=== PATIENT | male | born 1950 | race Caucasian/White ===

== ENCOUNTER 2018-09-29 09:41 | Inpatient (IN) | payer MEDICARE, OTHER ==
[2018-10-13] MEDS ORDERED: Sodium Chloride 0.9% 10 ML Syringe FLUSH PRN (00:01)
[2018-10-13] MEDS ORDERED: Lidocaine 1%/Sod Bicarbonate in NS 8.4% 1 ML Syringe IDERM PRN (00:01)
[2018-10-13] MEDS ORDERED: Pregabalin 25 MG Cap PO SCH (07:00)
[2018-10-13] MEDS ORDERED: oxyCODONE ER 10 MG TAB.ER PO SCH (07:00)
[2018-10-13] MEDS ORDERED: Acetaminophen 325 MG Tab PO SCH (07:00)
[2018-10-13] MEDS ORDERED: Morphine 8 MG, EPINEPHrine 0.3 MG, Cefuroxime 750 MG, Ketorolac 30 MG, Sodium Chloride ... ONE ×5 (07:04)
[2018-10-13] MEDS ORDERED: Sennosides 8.6 MG Tab PO PRN (07:05)
[2018-10-13] MEDS ORDERED: Ondansetron 4 MG/2 ML SDV IVPUSH PRN (07:05)
[2018-10-13] MEDS ORDERED: Magnesium Hydroxide 400 MG/5 ML Susp 30 ML Cup PO PRN (07:05)
[2018-10-13] MEDS ORDERED: Naloxone 0.4 MG/ML SDV IVPUSH PRN (07:05)
[2018-10-13] MEDS ORDERED: Morphine 2 MG/ML Syringe IVPUSH PRN (07:05)
[2018-10-13] MEDS ORDERED: Bisacodyl 5 MG Tab PO PRN (07:05)
--- NOTE | 2018-10-13 08:31 | PCM.PREANE ---
Preanesthetic Assessment - Anesthesia/Transfusion/Family Hx Anesthesia History: Prior Anesthesia Without Reaction Family History of Anesthesia Reaction: No Transfusion History: No Prior Transfusion(s) - Review of Systems General: No Symptoms Pulmonary: No Symptoms Cardiovascular: No Symptoms Gastrointestinal: No Symptoms Neurological: No Symptoms Other: Reports: Diabetes (check this am 147) - Physical Assessment NPO Status Date: 10/12/18 NPO Status Time: 00:00 Pulse: 79 O2 Sat by Pulse Oximetry: 97 Respiratory Rate: 16 Blood Pressure: 152/82 Temperature: 36.5 C Height: 1.78 m Weight: 104.8 kg ASA Class: 3 Mental Status: Alert & Oriented x3 Dentition: Reports: Dentures Thyro-Mental Finger Breadths: 3 Mouth Opening Finger Breadths: 3 ROM/Head Extension: Full Lungs: Clear to Auscultation, Normal Respiratory Effort Cardiovascular: Regular Rate, Regular Rhythm - Lab Values: Laboratory Last Values MRSA (PCR) Negative 09/15/18 07:49 - Imaging/EKG Impressions: EKG on chart SR - Allergies Allergies/Adverse Reactions: Allergies Allergy/AdvReac Type Severity Reaction Status Date / Time No Known Allergies Allergy Verified 10/10/18 12:40 - Anesthesia Plan Pre-Op Medication Ordered: None - Acknowledgements Anesthesia Type Planned: Spinal Pt an Appropriate Candidate for the Planned Anesthesia: Yes Alternatives and Risks of Anesthesia Discussed w Pt/Guardian: Yes Pt/Guardian Understands and Agrees with Anesthesia Plan: Yes PreAnesthesia Questionnaire HEENT 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: Impaired Vision, Other (See Below) Other HEENT History: has glasses, dentures Cardiovascular 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: High Cholesterol, Hypertension Respiratory 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: None Gastrointestinal 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: None, GERD Genitourinary 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: None 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 Musculoskeletal 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: Osteoarthritis Psychiatric 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: None Endocrine/Metabolic 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: Diabetes, Type II Hematologic 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: None Immunologic 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: None Oncologic (Cancer) 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: None Dermatologic 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: Other (See Below) Other Dermatologic History: cyst removed from lower lip - Past Surgical History Head Surgeries/Procedures: Reports: None Cardiovascular Surgical 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: None Respiratory Surgical 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: None GI Surgical 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: Appendectomy, Colonoscopy Female Surgical 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: None Male Surgical 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: None Endocrine Surgical 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: None Other Neurological Surgeries/Procedures: 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 Musculoskeletal Surgical 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: Other (See Below) Other Musculoskeletal Surgeries/Procedures:: left knee surgery Oncologic Surgical 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: None Dermatological Surgical 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: None - SUBSTANCE USE Smoking Status *Q: Former Smoker Tobacco Use Within Last Twelve Months: No Second Hand Smoke Exposure: No Days Per Week of Alcohol Use: 0 Number of Drinks Per Day: 0 Total Drinks Per Week: 0 Recreational Drug Use History: No - HOME MEDS Home Medications: Home Meds Aspirin 325 mg PO DAILY 10/10/18 [History] Dapagliflozin Propanediol [Farxiga] 10 mg PO DAILY 10/10/18 [History] Insulin Degludec [Tresiba] 15 units SQ BEDTIME 10/10/18 [History] Simvastatin [Zocor] 40 mg PO DAILY 10/10/18 [History] SitaGLIPtin [Januvia] 100 mg PO DAILY 10/10/18 [History] Valsartan/Hydrochlorothiazide [Valsartan-Hctz 80-12.5 mg Tab] 1 tab PO DAILY 06/18 [History] metFORMIN [Glucophage] 500 mg PO BID 10/10/18 [History] - CURRENT (IN HOUSE) MEDS Current Meds: Current Medications Acetaminophen (Tylenol) 975 mg PO ONETIME [facility] Stop: 10/13/18 14:00 Aspirin (Ecotrin) 325 mg PO BID [facility] Bisacodyl (Dulcolax) 5 mg PO DAILY PRN PRN Reason: Constipation Cyclobenzaprine HCl (Flexeril) 10 mg PO TID PRN PRN Reason: Spasms Docusate Sodium (Colace) 100 mg PO BID [facility] Famotidine (Pepcid) 20 mg PO Q12H [facility] Lactated Ringer's (Ringers, Lactated) 1,000 mls @ 125 mls/hr IV ASDIRECTED [facility] Stop: 10/13/18 23:00 Cefazolin Sodium/Dextrose 2 gm (/ Premix) 50 mls @ 100 mls/hr IV Q8H [facility] Stop: 10/13/18 23:44 Lidocaine/Sodium Bicarbonate (Buffered Lidocaine 1% In Ns 8.4%) 0.25 ml IDERM ONETIME PRN PRN Reason: Prior to IV Start Stop: 10/13/18 18:00 Magnesium Hydroxide (Milk Of Magnesia) 30 ml PO BID PRN PRN Reason: Constipation Morphine Sulfate (Morphine) 2 mg IVPUSH Q2H PRN PRN Reason: Breakthrough Pain Naloxone HCl (Narcan) 0.1 mg IVPUSH Q5M PRN PRN Reason: Oversedation Ondansetron HCl (Zofran) 4 mg IVPUSH Q6H PRN PRN Reason: Nausea/Vomiting Oxycodone HCl (Oxycontin) 10 mg PO ONETIME [facility] Stop: 10/13/18 14:00 Oxycodone/Acetaminophen (Percocet 325-5 Mg) 1 - 2 tab PO Q4H PRN PRN Reason: Pain Pregabalin (Lyrica) 50 mg PO ONETIME [facility] Stop: 10/13/18 14:00 Senna (Senna) 8.6 mg PO BID PRN PRN Reason: Constipation Sodium Chloride (Saline Flush) 10 ml FLUSH ASDIRECTED PRN PRN Reason: Keep Vein Open Discontinued Medications Morphine Sulfate 8 mg/Epinephrine HCl 0.3 mg/Cefuroxime Sodium 750 mg/Ketorolac Tromethamine 30 mg/Sodium Chloride 27.9 ml 0 mg .XX ONETIME ONE Stop: 10/13/18 07:05
[2018-10-13] MEDS: Lactated Ringers 1,000 ML IV SCH ×2 (08:45→12:18)
[2018-10-13] MEDS ORDERED: Propofol 200 MG/20 ML SDV ONE ×2 (08:46→10:50)
[2018-10-13] MEDS ORDERED: Ondansetron 4 MG/2 ML SDV ONE (08:46)
[2018-10-13] MEDS ORDERED: fentaNYL 100 MCG/2 ML SDV ONE (08:47)
[2018-10-13] MEDS ORDERED: ceFAZolin 1 GM Vial ONE (08:50)
[2018-10-13] MEDS ORDERED: diphenhydrAMINE 50 MG/ML SDV ONE (09:53)
[2018-10-13] MEDS ORDERED: Lactated Ringers 1,000 ML ONE (10:18)
[2018-10-13] MEDS: Iodine/Sodium Iodide 2% Tincture 30 ML Bottle ONE ×2 (10:58→11:06)
[2018-10-13] MEDS: ceFAZolin 1 GM Vial ONE ×2 (11:04→11:06)
[2018-10-13] MEDS: Bupivacaine 0.25% 30 ML SDV ONE ×2 (11:05→11:08)
[2018-10-13] MEDS: Vancomycin 1 GM SDV ONE ×2 (11:07→11:09)
[2018-10-13] MEDS ORDERED: fentaNYL 100 MCG/2 ML SDV IVPUSH PRN (11:51)
--- NOTE | 2018-10-13 11:52 | PCM.POSTAN ---
POST ANESTHESIA ASSESSMENT - MENTAL STATUS Mental Status: Alert, Oriented - VITAL SIGNS Pulse Rate: 82 SaO2: 94 Resp Rate: 12 Blood Pressure: 106/57 Temperature: 36.2 C - RESPIRATORY Respiratory Status: Respiratory Rate WNL, Airway Patent, O2 Saturation Stable - CARDIOVASCULAR CV Status: Pulse Rate WNL, Blood Pressure Stable - GASTROINTESTINAL GI Status: No Symptoms - PAIN Pain Score: 0 - POST OP HYDRATION Hydration Status: Adequate & Stable - OBSERVATIONS Free Text/Narrative:: no anesthesia complications noted
--- NOTE | 2018-10-13 12:25 | CR ---
Left knee: AP and lateral views of the left knee were obtained. Comparison: No previous study. Knee prosthesis is seen. Components are aligned. Soft tissue air is noted from surgical procedure. Multiple calcifications are seen posterior to the knee which are felt to be incidental. No fracture or other abnormality is seen. Impression: 1. Satisfactory appearance of recently placed left knee prosthesis. 2. Soft tissue calcifications seen posteriorly which are felt to be incidental. Diagnostic code #2
[2018-10-13] MEDS ORDERED: EPINEPHrine 1 MG/ML SDV ONE (12:26)
[2018-10-13] MEDS ORDERED: Ropivacaine 0.5% 5 MG/ML 30 ML SDV ONE (12:27)
--- NOTE | 2018-10-13 12:54 | PCM.SN ---
- Free Text/Narrative Note: Left selective femoral nerve block at the adductor canal for post-procedure pain control under US guidance requested by Dr. Dior. Time Out: 1234 Start: 1234 End: 1144 Chart reviewed. Consent signed. Questions answered. Appropriate monitors applied. Time out performed. Left mid-shaft femur identified with ultrasound, scanning medially of femur, the femoral artery in the adductor canal visualized , and the femoral nerve located laterally to the artery. The skin was prepped lateral to the ultrasound probe with chlorahexadine times two. The 21ga 4 insulated block needle was inserted under direct ultrasound guidance into the adductor canal. 20mL of 0.5% ropivacaine with 1:200,000 epinephrine was injected circumferentially around the nerve with intermittent negative aspiration noted. Patient tolerated the procedure well. Sterile technique noted along with sterile gloves, mask, and sterile probe cover. See picture on progress note and vital signs on nurses notes. Block completed in PACU. Juan Diego Rome CRNA
[2018-10-13] MEDS: Acetaminophen/oxyCODONE 325-5 MG Tab PO PRN ×2 (15:54→21:35)
[2018-10-13] MEDS: ceFAZolin 2 GM in Premix Bag 1 BAG IV SCH (17:00)
[2018-10-13] MEDS: Insulin Lispro 100 Units/ML 3 ML Vial SUBCUT SCH ×2 (17:32→21:40)
[2018-10-13] MEDS: Cyclobenzaprine 10 MG Tab PO PRN (19:04)
--- NOTE | 2018-10-13 20:15 | PCM.CONS ---
H&P History of Present Illness - General Date of Service: 10/13/18 Admit Problem/Dx: Admission Diagnosis/Problem Admission Diagnosis/Problem Osteoarthritis of knee Source of Information: Patient - History of Present Illness Initial Comments - Free Text/Narative: Hospital service was consult at for medical management and diabetic management of this 68-year-old male who underwent a left total knee arthroplasty. Per notes patient had uneventful surgery and is now on the floor without any discomfort. Patient denies any chest pain, shortness breath, orthopnea, wheezing , or cough. Patient does have a history for diabetes hyperlipidemia and hypertension. He is on Tresiba, metformin, Januvia, and Farxiga for diabetic medications. Left Knee Pain Score (Numeric/FACES): 2 - Related Data Allergies/Adverse Reactions: Allergies Allergy/AdvReac Type Severity Reaction Status Date / Time No Known Allergies Allergy Verified 10/13/18 13:44 Home Medications: Home Meds Dapagliflozin Propanediol [Farxiga] 10 mg PO DAILY 10/10/18 [History] Insulin Degludec [Tresiba] 15 units SQ BEDTIME 10/10/18 [History] Simvastatin [Zocor] 40 mg PO DAILY 10/10/18 [History] SitaGLIPtin [Januvia] 100 mg PO DAILY 10/10/18 [History] Valsartan/Hydrochlorothiazide [Valsartan-Hctz 80-12.5 mg Tab] 1 tab PO DAILY 06/18 [History] metFORMIN [Glucophage] 1,000 mg PO BID 10/10/18 [History] Acetaminophen/oxyCODONE [Percocet 325-5 MG] 1 - 2 tab PO Q4H PRN #60 tablet [Rx] Aspirin [Ecotrin] 325 mg PO BID #84 tab.ec 10/13/18 [Rx] Bisacodyl [Dulcolax] 5 mg PO DAILY PRN tablet 10/13/18 [Rx] Cyclobenzaprine [Flexeril] 10 mg PO TID PRN #40 tablet 10/13/18 [Rx] Docusate Sodium [Colace] 100 mg PO BID cap 10/13/18 [Rx] Famotidine [Pepcid] 20 mg PO Q12H tablet 10/13/18 [Rx] Magnesium Hydroxide [Milk of Magnesia] 30 ml PO BID PRN cup 10/13/18 [Rx] Sennosides [Senna] 8.6 mg PO BID PRN tablet 10/13/18 [Rx] Past Medical History HEENT 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: Impaired Vision, Other (See Below) Other HEENT History: has glasses, dentures Cardiovascular 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: High Cholesterol, Hypertension Respiratory 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: None Gastrointestinal 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: None, GERD Genitourinary 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: None 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 Musculoskeletal 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: Osteoarthritis Psychiatric 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: None Endocrine/Metabolic 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: Diabetes, Type II Hematologic 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: None Immunologic 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: None Oncologic (Cancer) 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: None Dermatologic 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: Other (See Below) Other Dermatologic History: cyst removed from lower lip - Past Surgical History Head Surgeries/Procedures: Reports: None Cardiovascular Surgical 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: None Respiratory Surgical 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: None GI Surgical 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: Appendectomy, Colonoscopy Male Surgical 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: None Endocrine Surgical 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: None Other Neurological Surgeries/Procedures: 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 Musculoskeletal Surgical 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: Other (See Below) Other Musculoskeletal Surgeries/Procedures:: left knee surgery Oncologic Surgical 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: None Dermatological Surgical 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: None Social & Family History - Tobacco Use Smoking Status *Q: Former Smoker Used Tobacco, but Quit: Yes Month/Year Tobacco Last Used: 1890 Second Hand Smoke Exposure: No - Caffeine Use Caffeine Use: Reports: Coffee - Alcohol Use Days Per Week of Alcohol Use: 0 Number of Drinks Per Day: 0 Total Drinks Per Week: 0 - Recreational Drug Use Recreational Drug Use: No Drug Use in Last 12 Months: No H&P Review of Systems - Review of Systems: Review Of Systems: ROS reveals no pertinent complaints other than HPI. Exam - Exam Exam: See Below - Vital Signs Vital Signs: Last Vital Signs Temp 99.1 F 10/13/18 19:39 Pulse 86 10/13/18 19:39 Resp 16 10/13/18 19:39 BP 124/66 10/13/18 19:39 Pulse Ox 98 10/13/18 19:39 Weight: 231 lb - Exam Quality Assessment: No: Supplemental Oxygen General: Alert, Oriented HEENT: Conjunctiva Clear, Mucosa Moist & [place], Posterior Pharynx Clear Neck: Supple, Trachea Midline Lungs: Clear to Auscultation, Normal Respiratory Effort Cardiovascular: Regular Rate, Regular Rhythm GI/Abdominal Exam: Normal Bowel Sounds, Soft, Non-Tender, No Organomegaly, No Distention Back Exam: Normal Inspection Extremities: Normal Inspection, Normal Range of Motion, No Pedal Edema, Normal Capillary Refill Skin: Warm, Dry, Intact Neuro Extensive - Mental Status: Alert, Oriented x3 Neuro Extensive - Motor, Sensory, Reflexes: CN II-XII Intact Consult PN Assessment/Plan Problem List Initiated/Reviewed/Updated: Yes My Orders Last 24 Hours: My Active Orders 10/13/18 16:48 POC Glucose [Blood Glucose Check, Bedside] [RC] QIDACANDBED 10/13/18 17:00 Insulin Lispro [HumaLOG] See Protocol SUBCUT QIDACANDBED Plan: S/P Left TKA * Uneventful surgical course * Pain management and VTE prophylaxis per primary care team/surgery Diabetes mellitus * Restart home medications * Fingerstick blood sugars 4 times a day * Sliding-scale insulin - low dose Hypertension * Continue home meds Hospital service will follow in the morning. Plan discharge for tomorrow per orthopedic surgery Thank you for allowing us to participate in his care.
[2018-10-13] MEDS ORDERED: Insulin Glarg,Human.Rec.Analog 100 UNIT/ML ML SUBCUT SCH (21:00)
[2018-10-13] MEDS ORDERED: metFORMIN 500 MG Tab PO SCH (21:00)
[2018-10-13] MEDS ORDERED: Simvastatin 40 MG Tab PO SCH (21:00)
[2018-10-13] MEDS: Docusate Sodium 100 MG Cap PO SCH (21:33)
[2018-10-13] MEDS: Famotidine 20 MG Tab PO SCH (21:35)
[2018-10-14] MEDS: ceFAZolin 2 GM in Premix Bag 1 BAG IV SCH ×2 (00:37→09:40)
--- NOTE | 2018-10-14 06:52 | PCM.CONSN ---
- General Info Date of Service: 10/14/18 Admission Dx/Problem (Free Text): Admission Diagnosis/Problem Admission Diagnosis/Problem Osteoarthritis of knee Functional Status: Reports: Pain Controlled, Tolerating Diet, Ambulating, Urinating, Incentive Spirometry. Denies: New Symptoms - Review of Systems General: Reports: No Symptoms. Denies: Fever, Chills HEENT: Reports: No Symptoms. Denies: Headaches, Sore Throat Pulmonary: Reports: No Symptoms. Denies: Shortness of Breath, Pleuritic Chest Pain, Cough, Sputum, Wheezing Cardiovascular: Reports: No Symptoms. Denies: Chest Pain, Palpitations, Dyspnea on Exertion, Edema Gastrointestinal: Reports: No Symptoms. Denies: Abdominal Pain, Constipation, Diarrhea, Nausea, Vomiting Genitourinary: Reports: No Symptoms. Denies: Pain Musculoskeletal: Reports: No Symptoms, Leg Pain Skin: Reports: No Symptoms. Denies: Cyanosis Neurological: Reports: No Symptoms. Denies: Confusion Psychiatric: Reports: No Symptoms - Patient Data Vitals - Most Recent: Last Vital Signs Temp 99.7 F 10/14/18 03:55 Pulse 95 10/14/18 03:37 Resp 16 10/14/18 03:37 BP 101/50 L 10/14/18 03:37 Pulse Ox 96 10/14/18 03:37 Weight - Most Recent: 242 lb 9.6 oz I&O - Last 24 Hours: Intake & Output 10/13/18 10/13/18 10/14/18 14:59 22:59 06:59 Intake Total 600 1160 650 Output Total 400 Balance 600 1160 250 Lab Results Last 24 Hours: Laboratory Results - last 24 hr 10/13/18 10/13/18 10/14/18 Range/Units 17:01 21:29 06:40 POC Glucose 185 H 153 H 148 H (80-115) mg/dL Med Orders - Current: Current Medications Alogliptin Benzoate (Alogliptin) 25 mg PO DAILY [facility] Aspirin (Ecotrin) 325 mg PO BID [facility] Bisacodyl (Dulcolax) 5 mg PO DAILY PRN PRN Reason: Constipation Cyclobenzaprine HCl (Flexeril) 10 mg PO TID PRN PRN Reason: Spasms Last Admin: 10/13/18 19:04 Dose: 10 mg Docusate Sodium (Colace) 100 mg PO BID [facility] Last Admin: 10/13/18 21:33 Dose: 100 mg Famotidine (Pepcid) 20 mg PO Q12H [facility] Last Admin: 10/13/18 21:35 Dose: 20 mg Hydrochlorothiazide (Hydrochlorothiazide) 12.5 mg PO DAILY [facility] Cefazolin Sodium/Dextrose 2 gm (/ Premix) 50 mls @ 100 mls/hr IV Q8H [facility] Stop: 10/14/18 09:29 Last Admin: 10/14/18 00:37 Dose: 100 mls/hr Insulin Glargine (Lantus) 15 unit SUBCUT BEDTIME [facility] Last Admin: 10/13/18 21:33 Dose: 15 units Insulin Human Lispro (Humalog) 0 unit SUBCUT QIDACANDBED [facility]; Protocol Last Admin: 10/13/18 21:40 Dose: Not Given Losartan Potassium (Cozaar) 50 mg PO DAILY [facility] Magnesium Hydroxide (Milk Of Magnesia) 30 ml PO BID PRN PRN Reason: Constipation Metformin HCl (Glucophage) 500 mg PO BID [facility] Last Admin: 10/13/18 21:33 Dose: 500 mg Morphine Sulfate (Morphine) 2 mg IVPUSH Q2H PRN PRN Reason: Breakthrough Pain Naloxone HCl (Narcan) 0.1 mg IVPUSH Q5M PRN PRN Reason: Oversedation Ondansetron HCl (Zofran) 4 mg IVPUSH Q6H PRN PRN Reason: Nausea/Vomiting Oxycodone/Acetaminophen (Percocet 325-5 Mg) 1 - 2 tab PO Q4H PRN PRN Reason: Pain Last Admin: 10/13/18 21:35 Dose: 2 tab Dapagliflozin Propanediol [Farxiga ] 10 Mg 0 each PO DAILY [facility] Senna (Senna) 8.6 mg PO BID PRN PRN Reason: Constipation Simvastatin (Zocor) 40 mg PO BEDTIME [facility] Last Admin: 10/13/18 21:35 Dose: 40 mg Sodium Chloride (Saline Flush) 10 ml FLUSH ASDIRECTED PRN PRN Reason: Keep Vein Open Discontinued Medications Acetaminophen (Tylenol) 975 mg PO ONETIME [facility] Stop: 10/13/18 14:00 Last Admin: 10/13/18 08:29 Dose: 975 mg Bupivacaine HCl (Marcaine 0.25%) Confirm Administered Dose 30 ml .ROUTE .STK- MED ONE Stop: 10/13/18 08:48 Last Admin: 10/13/18 11:08 Dose: 30 ml Cefazolin Sodium (Ancef) Confirm Administered Dose 2 gm .ROUTE .STK-MED ONE Stop: 10/13/18 08:48 Last Admin: 10/13/18 11:04 Dose: 2 gm Cefazolin Sodium (Ancef) Confirm Administered Dose 2 gm .ROUTE .STK-MED ONE Stop: 10/13/18 08:51 Morphine Sulfate 8 mg/Epinephrine HCl 0.3 mg/Cefuroxime Sodium 750 mg/Ketorolac Tromethamine 30 mg/Sodium Chloride 27.9 ml 0 mg .XX ONETIME ONE Stop: 10/13/18 07:05 Last Admin: 10/13/18 11:07 Dose: 788.3 mg Diphenhydramine HCl (Benadryl) Confirm Administered Dose 50 mg .ROUTE .STK-MED ONE Stop: 10/13/18 09:54 Epinephrine HCl (Adrenalin) Confirm Administered Dose 1 mg .ROUTE .STK-MED ONE Stop: 10/13/18 12:27 Fentanyl (Sublimaze) Confirm Administered Dose 100 mcg .ROUTE .STK-MED ONE Stop: 10/13/18 08:48 Fentanyl (Sublimaze) 50 mcg IVPUSH Q5M PRN PRN Reason: Pain Stop: 10/13/18 18:00 Lactated Ringer's (Ringers, Lactated) 1,000 mls @ 125 mls/hr IV ASDIRECTED [facility] Stop: 10/13/18 23:00 Last Admin: 10/13/18 12:18 Dose: 125 mls/hr Lactated Ringer's (Ringers, Lactated) Confirm Administered Dose 1,000 mls @ as directed .ROUTE .STK-MED ONE Stop: 10/13/18 10:19 Iodine (Iodine 2% Mild Tincture) Confirm Administered Dose 30 ml .ROUTE .STK- MED ONE Stop: 10/13/18 08:48 Last Admin: 10/13/18 10:58 Dose: 18 ml Lidocaine/Sodium Bicarbonate (Buffered Lidocaine 1% In Ns 8.4%) 0.25 ml IDERM ONETIME PRN PRN Reason: Prior to IV Start Stop: 10/13/18 18:00 Last Admin: 10/13/18 08:45 Dose: 0.25 ml Ondansetron HCl (Zofran) Confirm Administered Dose 4 mg .ROUTE .STK-MED ONE Stop: 10/13/18 08:47 Oxycodone HCl (Oxycontin) 10 mg PO ONETIME [facility] Stop: 10/13/18 14:00 Last Admin: 10/13/18 08:29 Dose: 10 mg Pregabalin (Lyrica) 50 mg PO ONETIME [facility] Stop: 10/13/18 14:00 Last Admin: 10/13/18 08:28 Dose: 50 mg Propofol (Diprivan 20 Ml) Confirm Administered Dose 200 mg .ROUTE .STK-MED ONE Stop: 10/13/18 08:47 Propofol (Diprivan 20 Ml) Confirm Administered Dose 200 mg .ROUTE .STK-MED ONE Stop: 10/13/18 10:51 Ropivacaine (Naropin 0.5%) Confirm Administered Dose 30 ml .ROUTE .STK-MED ONE Stop: 10/13/18 12:28 Tranexamic Acid (Cyklokapron) Confirm Administered Dose 1,000 mg .ROUTE .STK- MED ONE Stop: 10/13/18 08:48 Last Admin: 10/13/18 11:11 Dose: 1,000 mg Vancomycin HCl (Vancomycin) Confirm Administered Dose 1 gm .ROUTE .STK-MED ONE Stop: 10/13/18 08:48 Last Admin: 10/13/18 11:09 Dose: 1 gm - Exam Quality Assessment: DVT Prophylaxis General: Alert, Oriented, Cooperative, No Acute Distress HEENT: Pupils Equal, Pupils Reactive, EOMI, Mucous Membr. Moist/[place] Neck: Supple, Trachea Midline, No JVD Lungs: Clear to Auscultation, Normal Respiratory Effort Cardiovascular: Regular Rate, Regular Rhythm GI/Abdominal Exam: Normal Bowel Sounds, Soft, Non-Tender, No Organomegaly, No Distention (Male) Exam: Deferred Back Exam: Normal Inspection, Full Range of Motion Extremities: No Pedal Edema, Normal Capillary Refill, Leg Pain, Limited Range of Motion, Other (Bandage in place on left leg. Cooling pack in place ) Peripheral Pulses: 2+: Radial (L), Radial (R), Dorsalis Pedis (L), Dorsalis Pedis (R) Skin: Warm, Dry, Intact Wound/Incisions: Dressing Dry and Intact, No Drainage Neurological: No New Focal Deficit Psy/Mental Status: Alert, Normal Affect, Normal Mood Consult PN Assessment/Plan POD#: 1 (1) S/P total knee arthroplasty SNOMED Code(s): 9511344562301, 526258028, 0987483618019 Code(s): Z96.659 - PRESENCE OF UNSPECIFIED ARTIFICIAL KNEE JOINT Priority: High Current Visit: Yes Qualifiers: Laterality: left Qualified Code(s): Z96.652 - Presence of left artificial knee joint (2) Osteoarthritis SNOMED Code(s): 217082171 Code(s): M19.90 - UNSPECIFIED OSTEOARTHRITIS, UNSPECIFIED SITE Priority: High Current Visit: Yes Qualifiers: Osteoarthritis location: knee Osteoarthritis type: primary Laterality: left Qualified Code(s): M17.12 - Unilateral primary osteoarthritis, left knee (3) Diabetes mellitus, type II SNOMED Code(s): 90609689 Code(s): E11.9 - TYPE 2 DIABETES MELLITUS WITHOUT COMPLICATIONS Priority: Medium Current Visit: No Qualifiers: Diabetes mellitus exterminator insulin use: unspecified residential insulin use status Diabetes mellitus complication status: with unspecified complications Qualified Code(s): E11.8 - Type 2 diabetes mellitus with unspecified complications (4) HLD (hyperlipidemia) SNOMED Code(s): 70053781 Code(s): E78.5 - HYPERLIPIDEMIA, UNSPECIFIED Priority: Low Current Visit : No Qualifiers: Hyperlipidemia type: unspecified Qualified Code(s): E78.5 - Hyperlipidemia , unspecified (5) HTN (hypertension) SNOMED Code(s): 36672855 Code(s): I10 - ESSENTIAL (PRIMARY) HYPERTENSION Priority: Medium Current Visit: No Qualifiers: Hypertension type: unspecified Qualified Code(s): I10 - Essential (primary ) hypertension Problem List Initiated/Reviewed/Updated: Yes Plan: I/P: Acute: S/P left total knee arthroplasty - post-operative day 1 -DVT prophylaxis and pain management per primary care team -PT/OT -IS/RT -Monitor oxygen saturation -Titrate oxygen as needed -Home medications reviewed -Vital signs stable -Monitor labs -Pre-operative Hgb was 14.8; Now 11.6 -Pre-operative GFR was 63; Now 46 -Pre-operative Creatinine 1.1; Now 1.5 -Pre-operative A1C 7.4% Osteoarthritis of left knee -Pain management per primary care team Acute renal injury -Creatinine and eGFR as above -Encourage hydration -500mL fluid bolus -IV fluids as ordered -Hold metformin and HCTZ today Chronic: Type II DM HLD HTN Plan: CM for discharge planning GI prophylaxis Home medications as indicated Other orders as listed above Routine AM labs He is a full code. His PCP is Luiza Hopkins NP From a hospitalist standpoint Armando is doing pretty well. His creatinine was elevated today and he was given a fluid bolus and IV fluids until discharge. He should follow-up with his PCP within 2-3 days for re-check of labs. Recommend repeat BMP at that time. Otherwise he is doing well. He has been up ambulating and working with therapies. Labs and vital signs have otherwise been stable. He has urinated and is off of oxygen. He is cleared for discharge this afternoon after receiving IV fluids pending PT/OT and primary team agreement. Thank you for allowing us to participate in the care of this patient!!
[2018-10-14] MEDS ORDERED: Sodium Chloride 0.9% 500 ML IV ONE (07:35)
[2018-10-14] MEDS ORDERED: Sodium Chloride 0.9% 1,000 ML IV SCH (07:45)
[2018-10-14] MEDS: Insulin Lispro 100 Units/ML 3 ML Vial SUBCUT SCH ×2 (07:51→13:18)
--- NOTE | 2018-10-14 07:57 | PCM.SURGPN ---
- General Info Date of Service: 10/14/18 POD#: 1 Functional Status: Reports: Pain Controlled, Tolerating Diet, Ambulating, Urinating, Incentive Spirometry, Other (The pt states he is doing well.) - Patient Data Vitals - Most Recent: Last Vital Signs Temp 99.7 F 10/14/18 03:55 Pulse 95 10/14/18 03:37 Resp 16 10/14/18 03:37 BP 101/50 L 10/14/18 03:37 Pulse Ox 96 10/14/18 03:37 Weight - Most Recent: 242 lb 9.6 oz I&O - Last 24 Hours: Intake & Output 10/13/18 10/14/18 10/14/18 22:59 06:59 14:59 Intake Total 1160 650 Output Total 400 Balance 1160 250 Lab Results Last 24 Hrs: Laboratory Results - last 24 hr 10/13/18 10/13/18 10/14/18 Range/Units 17:01 21:29 06:40 WBC 8.14 (4.23-9.07) K/mm3 RBC 3.89 L (4.63-6.08) M/mm3 Hgb 11.6 L (13.7-17.5) gm/L Hct 35.8 L (40.1-51.0) % MCV 92.0 (79.0-92.2) fl MCH 29.8 (25.7-32.2) pg MCHC 32.4 (32.2-35.5) g/dl RDW Std Deviation 42.9 (35.1-43.9) fL Plt Count 212 (163-337) K/mm3 MPV 10.1 (9.4-12.3) fl Sodium (136-145) mEq/L Potassium (3.5-5.1) mEq/L Chloride (98-107) mEq/L Carbon Dioxide (21-32) mEq/L Anion Gap (5-15) BUN (7-18) mg/dL Creatinine (0.7-1.3) mg/dL Est Cr Clr Drug Dosing mL/min Estimated GFR (MDRD) (>60) mL/min BUN/Creatinine Ratio (14-18) Glucose (80-115) mg/dL POC Glucose 185 H 153 H (80-115) mg/dL Calcium (8.5-10.1) mg/dL Total Bilirubin (0.2-1.0) mg/dL AST (15-37) U/L ALT (16-63) U/L Alkaline Phosphatase (46-116) U/L Total Protein (6.4-8.2) g/dl Albumin (3.4-5.0) g/dl Globulin gm/dL Albumin/Globulin Ratio (1-2) 10/14/18 10/14/18 Range/Units 06:40 06:40 WBC (4.23-9.07) K/mm3 RBC (4.63-6.08) M/mm3 Hgb (13.7-17.5) gm/L Hct (40.1-51.0) % MCV (79.0-92.2) fl MCH (25.7-32.2) pg MCHC (32.2-35.5) g/dl RDW Std Deviation (35.1-43.9) fL Plt Count (163-337) K/mm3 MPV (9.4-12.3) fl Sodium 138 (136-145) mEq/L Potassium 3.8 (3.5-5.1) mEq/L Chloride 104 (98-107) mEq/L Carbon Dioxide 27 (21-32) mEq/L Anion Gap 10.8 (5-15) BUN 30 H (7-18) mg/dL Creatinine 1.5 H (0.7-1.3) mg/dL Est Cr Clr Drug Dosing 47.99 mL/min Estimated GFR (MDRD) 46 (>60) mL/min BUN/Creatinine Ratio 20.0 H (14-18) Glucose 150 H (80-115) mg/dL POC Glucose 148 H (80-115) mg/dL Calcium 8.3 L (8.5-10.1) mg/dL Total Bilirubin 1.3 H (0.2-1.0) mg/dL AST 15 (15-37) U/L ALT 24 (16-63) U/L Alkaline Phosphatase 44 L (46-116) U/L Total Protein 6.4 (6.4-8.2) g/dl Albumin 3.1 L (3.4-5.0) g/dl Globulin 3.3 gm/dL Albumin/Globulin Ratio 0.9 L (1-2) Med Orders - Current: Current Medications Alogliptin Benzoate (Alogliptin) 25 mg PO DAILY [facility] Aspirin (Ecotrin) 325 mg PO BID [facility] Bisacodyl (Dulcolax) 5 mg PO DAILY PRN PRN Reason: Constipation Cyclobenzaprine HCl (Flexeril) 10 mg PO TID PRN PRN Reason: Spasms Last Admin: 10/13/18 19:04 Dose: 10 mg Docusate Sodium (Colace) 100 mg PO BID [facility] Last Admin: 10/13/18 21:33 Dose: 100 mg Famotidine (Pepcid) 20 mg PO Q12H [facility] Last Admin: 10/13/18 21:35 Dose: 20 mg Cefazolin Sodium/Dextrose 2 gm (/ Premix) 50 mls @ 100 mls/hr IV Q8H [facility] Stop: 10/14/18 09:29 Last Admin: 10/14/18 00:37 Dose: 100 mls/hr Sodium Chloride (Normal Saline) 500 mls @ 999 mls/hr IV .BOLUS ONE Stop: 10/14/18 08:05 Sodium Chloride (Normal Saline) 1,000 mls @ 125 mls/hr IV ASDIRECTED [facility] Insulin Glargine (Lantus) 15 unit SUBCUT BEDTIME [facility] Last Admin: 10/13/18 21:33 Dose: 15 units Insulin Human Lispro (Humalog) 0 unit SUBCUT QIDACANDBED [facility]; Protocol Last Admin: 10/14/18 07:51 Dose: Not Given Losartan Potassium (Cozaar) 50 mg PO DAILY [facility] Magnesium Hydroxide (Milk Of Magnesia) 30 ml PO BID PRN PRN Reason: Constipation Morphine Sulfate (Morphine) 2 mg IVPUSH Q2H PRN PRN Reason: Breakthrough Pain Naloxone HCl (Narcan) 0.1 mg IVPUSH Q5M PRN PRN Reason: Oversedation Ondansetron HCl (Zofran) 4 mg IVPUSH Q6H PRN PRN Reason: Nausea/Vomiting Oxycodone/Acetaminophen (Percocet 325-5 Mg) 1 - 2 tab PO Q4H PRN PRN Reason: Pain Last Admin: 10/13/18 21:35 Dose: 2 tab Dapagliflozin Propanediol [Farxiga ] 10 Mg 0 each PO DAILY [facility] Senna (Senna) 8.6 mg PO BID PRN PRN Reason: Constipation Simvastatin (Zocor) 40 mg PO BEDTIME [facility] Last Admin: 10/13/18 21:35 Dose: 40 mg Sodium Chloride (Saline Flush) 10 ml FLUSH ASDIRECTED PRN PRN Reason: Keep Vein Open Discontinued Medications Acetaminophen (Tylenol) 975 mg PO ONETIME [facility] Stop: 10/13/18 14:00 Last Admin: 10/13/18 08:29 Dose: 975 mg Bupivacaine HCl (Marcaine 0.25%) Confirm Administered Dose 30 ml .ROUTE .STK- MED ONE Stop: 10/13/18 08:48 Last Admin: 10/13/18 11:08 Dose: 30 ml Cefazolin Sodium (Ancef) Confirm Administered Dose 2 gm .ROUTE .STK-MED ONE Stop: 10/13/18 08:48 Last Admin: 10/13/18 11:04 Dose: 2 gm Cefazolin Sodium (Ancef) Confirm Administered Dose 2 gm .ROUTE .STK-MED ONE Stop: 10/13/18 08:51 Morphine Sulfate 8 mg/Epinephrine HCl 0.3 mg/Cefuroxime Sodium 750 mg/Ketorolac Tromethamine 30 mg/Sodium Chloride 27.9 ml 0 mg .XX ONETIME ONE Stop: 10/13/18 07:05 Last Admin: 10/13/18 11:07 Dose: 788.3 mg Diphenhydramine HCl (Benadryl) Confirm Administered Dose 50 mg .ROUTE .STK-MED ONE Stop: 10/13/18 09:54 Epinephrine HCl (Adrenalin) Confirm Administered Dose 1 mg .ROUTE .STK-MED ONE Stop: 10/13/18 12:27 Fentanyl (Sublimaze) Confirm Administered Dose 100 mcg .ROUTE .STK-MED ONE Stop: 10/13/18 08:48 Fentanyl (Sublimaze) 50 mcg IVPUSH Q5M PRN PRN Reason: Pain Stop: 10/13/18 18:00 Hydrochlorothiazide (Hydrochlorothiazide) 12.5 mg PO DAILY [facility] Lactated Ringer's (Ringers, Lactated) 1,000 mls @ 125 mls/hr IV ASDIRECTED [facility] Stop: 10/13/18 23:00 Last Admin: 10/13/18 12:18 Dose: 125 mls/hr Lactated Ringer's (Ringers, Lactated) Confirm Administered Dose 1,000 mls @ as directed .ROUTE .STK-MED ONE Stop: 10/13/18 10:19 Iodine (Iodine 2% Mild Tincture) Confirm Administered Dose 30 ml .ROUTE .STK- MED ONE Stop: 10/13/18 08:48 Last Admin: 10/13/18 10:58 Dose: 18 ml Lidocaine/Sodium Bicarbonate (Buffered Lidocaine 1% In Ns 8.4%) 0.25 ml IDERM ONETIME PRN PRN Reason: Prior to IV Start Stop: 10/13/18 18:00 Last Admin: 10/13/18 08:45 Dose: 0.25 ml Metformin HCl (Glucophage) 500 mg PO BID [facility] Last Admin: 10/13/18 21:33 Dose: 500 mg Ondansetron HCl (Zofran) Confirm Administered Dose 4 mg .ROUTE .STK-MED ONE Stop: 10/13/18 08:47 Oxycodone HCl (Oxycontin) 10 mg PO ONETIME [facility] Stop: 10/13/18 14:00 Last Admin: 10/13/18 08:29 Dose: 10 mg Pregabalin (Lyrica) 50 mg PO ONETIME [facility] Stop: 10/13/18 14:00 Last Admin: 10/13/18 08:28 Dose: 50 mg Propofol (Diprivan 20 Ml) Confirm Administered Dose 200 mg .ROUTE .STK-MED ONE Stop: 10/13/18 08:47 Propofol (Diprivan 20 Ml) Confirm Administered Dose 200 mg .ROUTE .STK-MED ONE Stop: 10/13/18 10:51 Ropivacaine (Naropin 0.5%) Confirm Administered Dose 30 ml .ROUTE .STK-MED ONE Stop: 10/13/18 12:28 Tranexamic Acid (Cyklokapron) Confirm Administered Dose 1,000 mg .ROUTE .STK- MED ONE Stop: 10/13/18 08:48 Last Admin: 10/13/18 11:11 Dose: 1,000 mg Vancomycin HCl (Vancomycin) Confirm Administered Dose 1 gm .ROUTE .STK-MED ONE Stop: 10/13/18 08:48 Last Admin: 10/13/18 11:09 Dose: 1 gm - Exam Wound/Incisions: Dressing Dry and Intact General: Alert, Cooperative, No Acute Distress Lungs: Normal Respiratory Effort Extremities: Other (NVS intact for BLE. Hilary's negative. 90 degree left knee flexion in sitting.) - Problem List Review Problem List Initiated/Reviewed/Updated: Yes - My Orders Last 24 Hours: Active Orders 24 hr Category Date Time Status Patient Status [ADT] Routine ADT 10/13/18 07:05 Active Ambulate [RC] 09,13,15 Care 10/13/18 07:05 Active Antiembolic Devices [RC] BID Care 10/13/18 07:06 Active Communication Order [RC] ASDIRECTED Care 10/13/18 13:18 Active May Shower [RC] ASDIRECTED Care 10/13/18 07:05 Active Notify Provider Consults [RC] ASDIRECTED Care 10/13/18 07:09 Active Notify Provider [RC] ASDIRECTED Care 10/13/18 11:50 Active Oxygen Therapy [RC] ASDIRECTED Care 10/13/18 11:50 Inactive Oxygen Therapy [RC] PRN Care 10/13/18 07:05 Active POC Glucose [Blood Glucose Check, Bedside] [RC] Care 10/13/18 16:48 Active QIDACANDBED Pulse Oximetry [RC] ASDIRECTED Care 10/13/18 11:50 Inactive RT Incentive Spirometry [RC] Q1HWA Care 10/13/18 07:04 Active Ready for Discharge [RC] PER UNIT ROUTINE Care 10/14/18 07:54 Ordered Up to Chair [RC] 08,12 Care 10/13/18 07:05 Active Vital Signs [RC] Q15M Care 10/13/18 11:50 Inactive Vital Signs [RC] Q4HR Care 10/13/18 07:05 Active Consult to Physician [CONS] Routine Cons 10/13/18 07:05 Active OT Evaluation and Treatment [CONS] Routine Cons 10/13/18 07:04 Active PT Evaluation and Treatment [CONS] Routine Cons 10/13/18 07:04 Active [employer] Diet [DIET] Diet 10/13/18 Lunch Active Acetaminophen/oxyCODONE [Percocet 325-5 MG] Med 10/13/18 07:04 Active 1 - 2 tab PO Q4H PRN Alogliptin Benzoate [Alogliptin] Med 10/14/18 09:00 Active 25 mg PO DAILY Aspirin [Ecotrin] Med 10/14/18 09:00 Active 325 mg PO BID Bisacodyl [Dulcolax] Med 10/13/18 07:05 Active 5 mg PO DAILY PRN Cyclobenzaprine [Flexeril] Med 10/13/18 07:04 Active 10 mg PO TID PRN Docusate Sodium [Colace] Med 10/13/18 21:00 Active 100 mg PO BID Famotidine [Pepcid] Med 10/13/18 21:00 Active 20 mg PO Q12H Insulin Glarg,Human.Rec.Analog [LantUS] Med 10/13/18 21:00 Active 15 unit SUBCUT BEDTIME Insulin Lispro [HumaLOG] Med 10/13/18 17:00 Active See Protocol SUBCUT QIDACANDBED Losartan [Cozaar] Med 10/14/18 09:00 Active 50 mg PO DAILY Magnesium Hydroxide [Milk of Magnesia] Med 10/13/18 07:05 Active 30 ml PO BID PRN Morphine Med 10/13/18 07:05 Active 2 mg IVPUSH Q2H PRN Naloxone [Narcan] Med 10/13/18 07:05 Active 0.1 mg IVPUSH Q5M PRN Ondansetron [Zofran] Med 10/13/18 07:05 Active 4 mg IVPUSH Q6H PRN Patient's Own Medication [Ptom] Med 10/14/18 09:00 Active 0 each PO DAILY Sennosides [Senna] Med 10/13/18 07:05 Active 8.6 mg PO BID PRN Simvastatin [Zocor] Med 10/13/18 21:00 Active 40 mg PO BEDTIME Sodium Chloride 0.9% [Normal Saline] 1,000 ml Med 10/14/18 07:45 Active IV ASDIRECTED Sodium Chloride 0.9% [Normal Saline] 500 ml Med 10/14/18 07:35 Active IV .BOLUS ceFAZolin [Ancef] 2 gm Med 10/13/18 17:00 Active Premix Bag 1 bag IV Q8H Antiembolic Hose [OM.PC] Per Unit Routine Oth 10/13/18 07:08 Ordered Ice Therapy [OM.PC] Per Unit Routine Oth 10/13/18 07:06 Ordered Sequential Compression Device [OM.PC] Per Unit Routine Oth 10/13/18 07:04 Ordered Resuscitation Status Routine Resus Stat 10/13/18 07:05 Ordered Medication Orders Alogliptin Benzoate (Alogliptin) 25 mg PO DAILY [facility] Aspirin (Ecotrin) 325 mg PO BID [facility] Bisacodyl (Dulcolax) 5 mg PO DAILY PRN PRN Reason: Constipation Cyclobenzaprine HCl (Flexeril) 10 mg PO TID PRN PRN Reason: Spasms Last Admin: 10/13/18 19:04 Dose: 10 mg Docusate Sodium (Colace) 100 mg PO BID [facility] Last Admin: 10/13/18 21:33 Dose: 100 mg Famotidine (Pepcid) 20 mg PO Q12H [facility] Last Admin: 10/13/18 21:35 Dose: 20 mg Cefazolin Sodium/Dextrose 2 gm (/ Premix) 50 mls @ 100 mls/hr IV Q8H [facility] Stop: 10/14/18 09:29 Last Admin: 10/14/18 00:37 Dose: 100 mls/hr Infusion: 10/13/18 17:30 Dose: 100 mls/hr Admin: 10/13/18 17:00 Dose: 100 mls/hr Sodium Chloride (Normal Saline) 500 mls @ 999 mls/hr IV .BOLUS ONE Stop: 10/14/18 08:05 Sodium Chloride (Normal Saline) 1,000 mls @ 125 mls/hr IV ASDIRECTED [facility] Insulin Glargine (Lantus) 15 unit SUBCUT BEDTIME [facility] Last Admin: 10/13/18 21:33 Dose: 15 units Insulin Human Lispro (Humalog) 0 unit SUBCUT QIDACANDBED [facility]; Protocol Last Admin: 10/14/18 07:51 Dose: Admin: 10/13/18 21:40 Dose: Not Given Admin: 10/13/18 17:32 Dose: 1 unit Losartan Potassium (Cozaar) 50 mg PO DAILY [facility] Magnesium Hydroxide (Milk Of Magnesia) 30 ml PO BID PRN PRN Reason: Constipation Morphine Sulfate (Morphine) 2 mg IVPUSH Q2H PRN PRN Reason: Breakthrough Pain Naloxone HCl (Narcan) 0.1 mg IVPUSH Q5M PRN PRN Reason: Oversedation Ondansetron HCl (Zofran) 4 mg IVPUSH Q6H PRN PRN Reason: Nausea/Vomiting Oxycodone/Acetaminophen (Percocet 325-5 Mg) 1 - 2 tab PO Q4H PRN PRN Reason: Pain Last Admin: 10/13/18 21:35 Dose: 2 tab Admin: 10/13/18 15:54 Dose: 2 tab Dapagliflozin Propanediol [Farxiga ] 10 Mg 0 each PO DAILY [facility] Senna (Senna) 8.6 mg PO BID PRN PRN Reason: Constipation Simvastatin (Zocor) 40 mg PO BEDTIME [facility] Last Admin: 10/13/18 21:35 Dose: 40 mg Sodium Chloride (Saline Flush) 10 ml FLUSH ASDIRECTED PRN PRN Reason: Keep Vein Open - Assessment Assessment (Free Text/Narrative):: POD#1 - left TKA - Plan Plan (Free Text/Narrative):: 1. Discharge to home today if cleared by Hospitalist service and therapies. 2. Pt admitted to inpt status due to hx DM and need for close monitoring of blood sugars and also BP. Hx surgery postponed 2 wks for monitoring and improvement of A1c. 3. Outpatient therapy. The pt's case was discussed with Dr. Dior.
--- NOTE | 2018-10-14 07:58 | PCM48HPAN ---
Post Anesthesia Note - EVALUATION WITHIN 48HRS OF ANESTHETIC Vital Signs in Normal Range: Yes Patient Participated in Evaluation: Yes Respiratory Function Stable: Yes Airway Patent: Yes Cardiovascular Function Stable: Yes Hydration Status Stable: Yes Pain Control Satisfactory: Yes Nausea and Vomiting Control Satisfactory: Yes Mental Status Recovered: Yes (minimal pain) Pulse Rate: 95 Resp Rate: 16 Temperature: 99.7 F Blood Pressure: 101/50
--- NOTE | 2018-10-14 07:59 | PCM.DCSUM1 ---
Discharge Summary - Hospital Course Brief History: Armando is a 68 yo male who underwent left TKA with Dr. Dior on . The procedure was completed under spinal anesthesia with sedation. The pt tolerated the procedure well and was admitted to the Medical-Surgical Unit. Medical management was provided by the Hospitalist service. The pt's Hospital course was uneventful. The Hospitalist service closely monitored the pt's blood sugars and blood pressures. The pt's Hgb on POD#1 was 11.6. On POD# 1, 325mg ASA BID was initiated for VTE prophylaxis. SCDs and TEDs were also ordered. A Mepilex dressing was placed at the incision site at the time of surgery and remained clean and dry. The pt participated in P.T. and O.T. and progressed well. The pt was allowed to WBAT. On POD#1, the pt was deemed appropriate to discharge to home with his . - Discharge Data Discharge Date: 10/14/18 Discharge Disposition: Home, Self-Care 01 Condition: Good - Patient Summary/Data Consults: Consultations 10/13/18 07:04 OT Evaluation and Treatment [CONS] Routine PT Evaluation and Treatment [CONS] Routine 10/13/18 07:05 Consult to Physician [CONS] Routine - Patient Instructions Diet: Usual Diet as Tolerated, Diabetic Diet Activity: Apply Ice, As Tolerated, Elevate Extremity, Full Weight Bearing Driving: Do Not Drive Showering/Bathing: May Shower Wound/Incision Care: Keep Operative Site/Wound Site Clean and Dry, Do NOT Change Dressing Notify Provider of: Fever, Increased Pain, Swelling and Redness, Drainage, Nausea and/or Vomiting Other/Special Instructions: Please get up and moving around EVERY HOUR while awake. Take a short walk every hour while awake. This helps to prevent blood clots. Have help with mobility as needed. Please take 325mg aspirin twice daily - this also helps to prevent blood clots. The medication is being used for blood clot prevention and not for pain control, so please use the medication twice daily as directed. You could use a medication like Zantac or Pepcid and a medication like omeprazole (Prilosec) or Nexium to protect your stomach while using the aspirin. Please wear the MAINOR hose during the day and you may remove them at night. Please schedule for P.T. Complete the P.T. exercises and stretches that were instructed in the Hospital. Please use the pain medication as needed. The pain medication may cause drowsiness and/or constipation. You could use a stool softener like docusate sodium or Colace 100mg twice daily and/or a laxative like Miralax daily for constipation. Contact your primary care provider for further instructions if you are constipated. Discontinue use of the pain medication as soon as able. Please do not use other medications that may cause drowsiness (other pain medications, anxiety pills, sleeping pills, allergy medications that cause drowsiness) while using the pain medication. Please do not use alcohol while using the pain medication. Use the incentive spirometer often. Please place ice to the surgical site often. Place a towel between your skin and the blue pad. Please elevate the limb to decrease swelling. Keep the dressing in place until follow- up. Please notify the Clinic if the dressing is saturated or rolls. Increase protein intake in your diet as this helps with healing. Please closely monitor your blood sugars and notify your primary care provider of your values. Elevated blood sugars increases the risk of infection. Please call [phone] with questions or concerns. - Discharge Plan *PRESCRIPTION DRUG MONITORING PROGRAM REVIEWED*: No *COPY OF PRESCRIPTION DRUG MONITORING REPORT IN PATIENT TRINI: No Prescriptions/Med Rec: Acetaminophen/oxyCODONE [Percocet 325-5 MG] 1 - 2 tab PO Q4H PRN #60 tablet PRN Reason: Pain Aspirin [Ecotrin] 325 mg PO BID #84 tab.ec Cyclobenzaprine [Flexeril] 10 mg PO TID PRN #40 tablet PRN Reason: Spasms Home Medications: Home Meds Dapagliflozin Propanediol [Farxiga] 10 mg PO DAILY 10/10/18 [History] Insulin Degludec [Tresiba] 15 units SQ BEDTIME 10/10/18 [History] Simvastatin [Zocor] 40 mg PO DAILY 10/10/18 [History] SitaGLIPtin [Januvia] 100 mg PO DAILY 10/10/18 [History] Valsartan/Hydrochlorothiazide [Valsartan-Hctz 80-12.5 mg Tab] 1 tab PO DAILY 06/18 [History] metFORMIN [Glucophage] 1,000 mg PO BID 10/10/18 [History] Acetaminophen/oxyCODONE [Percocet 325-5 MG] 1 - 2 tab PO Q4H PRN #60 tablet [Rx] Aspirin [Ecotrin] 325 mg PO BID #84 tab.ec 10/13/18 [Rx] Bisacodyl [Dulcolax] 5 mg PO DAILY PRN tablet 10/13/18 [Rx] Cyclobenzaprine [Flexeril] 10 mg PO TID PRN #40 tablet 10/13/18 [Rx] Docusate Sodium [Colace] 100 mg PO BID cap 10/13/18 [Rx] Famotidine [Pepcid] 20 mg PO Q12H tablet 10/13/18 [Rx] Magnesium Hydroxide [Milk of Magnesia] 30 ml PO BID PRN cup 10/13/18 [Rx] Sennosides [Senna] 8.6 mg PO BID PRN tablet 10/13/18 [Rx] Referrals: Leidy Jimenez PA-C [Physician Truck Engine Technician] - - Discharge Summary/Plan Comment DC Time >30 min.: No - Patient Data Vitals - Most Recent: Last Vital Signs Temp 99.7 F 10/14/18 03:55 Pulse 95 10/14/18 03:37 Resp 16 10/14/18 03:37 BP 101/50 L 10/14/18 03:37 Pulse Ox 96 10/14/18 03:37 Weight - Most Recent: 242 lb 9.6 oz I&O - Last 24 hours: Intake & Output 10/13/18 10/14/18 10/14/18 22:59 06:59 14:59 Intake Total 1160 650 Output Total 400 Balance 1160 250 Lab Results - Last 24 hrs: Laboratory Results - last 24 hr 10/13/18 10/13/18 10/14/18 Range/Units 17:01 21:29 06:40 WBC 8.14 (4.23-9.07) K/mm3 RBC 3.89 L (4.63-6.08) M/mm3 Hgb 11.6 L (13.7-17.5) gm/L Hct 35.8 L (40.1-51.0) % MCV 92.0 (79.0-92.2) fl MCH 29.8 (25.7-32.2) pg MCHC 32.4 (32.2-35.5) g/dl RDW Std Deviation 42.9 (35.1-43.9) fL Plt Count 212 (163-337) K/mm3 MPV 10.1 (9.4-12.3) fl Sodium (136-145) mEq/L Potassium (3.5-5.1) mEq/L Chloride (98-107) mEq/L Carbon Dioxide (21-32) mEq/L Anion Gap (5-15) BUN (7-18) mg/dL Creatinine (0.7-1.3) mg/dL Est Cr Clr Drug Dosing mL/min Estimated GFR (MDRD) (>60) mL/min BUN/Creatinine Ratio (14-18) Glucose (80-115) mg/dL POC Glucose 185 H 153 H (80-115) mg/dL Calcium (8.5-10.1) mg/dL Total Bilirubin (0.2-1.0) mg/dL AST (15-37) U/L ALT (16-63) U/L Alkaline Phosphatase (46-116) U/L Total Protein (6.4-8.2) g/dl Albumin (3.4-5.0) g/dl Globulin gm/dL Albumin/Globulin Ratio (1-2) 10/14/18 10/14/18 Range/Units 06:40 06:40 WBC (4.23-9.07) K/mm3 RBC (4.63-6.08) M/mm3 Hgb (13.7-17.5) gm/L Hct (40.1-51.0) % MCV (79.0-92.2) fl MCH (25.7-32.2) pg MCHC (32.2-35.5) g/dl RDW Std Deviation (35.1-43.9) fL Plt Count (163-337) K/mm3 MPV (9.4-12.3) fl Sodium 138 (136-145) mEq/L Potassium 3.8 (3.5-5.1) mEq/L Chloride 104 (98-107) mEq/L Carbon Dioxide 27 (21-32) mEq/L Anion Gap 10.8 (5-15) BUN 30 H (7-18) mg/dL Creatinine 1.5 H (0.7-1.3) mg/dL Est Cr Clr Drug Dosing 47.99 mL/min Estimated GFR (MDRD) 46 (>60) mL/min BUN/Creatinine Ratio 20.0 H (14-18) Glucose 150 H (80-115) mg/dL POC Glucose 148 H (80-115) mg/dL Calcium 8.3 L (8.5-10.1) mg/dL Total Bilirubin 1.3 H (0.2-1.0) mg/dL AST 15 (15-37) U/L ALT 24 (16-63) U/L Alkaline Phosphatase 44 L (46-116) U/L Total Protein 6.4 (6.4-8.2) g/dl Albumin 3.1 L (3.4-5.0) g/dl Globulin 3.3 gm/dL Albumin/Globulin Ratio 0.9 L (1-2) Med Orders - Current: Current Medications Alogliptin Benzoate (Alogliptin) 25 mg PO DAILY [facility] Aspirin (Ecotrin) 325 mg PO BID [facility] Bisacodyl (Dulcolax) 5 mg PO DAILY PRN PRN Reason: Constipation Cyclobenzaprine HCl (Flexeril) 10 mg PO TID PRN PRN Reason: Spasms Last Admin: 10/13/18 19:04 Dose: 10 mg Docusate Sodium (Colace) 100 mg PO BID [facility] Last Admin: 10/13/18 21:33 Dose: 100 mg Famotidine (Pepcid) 20 mg PO Q12H [facility] Last Admin: 10/13/18 21:35 Dose: 20 mg Cefazolin Sodium/Dextrose 2 gm (/ Premix) 50 mls @ 100 mls/hr IV Q8H [facility] Stop: 10/14/18 09:29 Last Admin: 10/14/18 00:37 Dose: 100 mls/hr Sodium Chloride (Normal Saline) 500 mls @ 999 mls/hr IV .BOLUS ONE Stop: 10/14/18 08:05 Sodium Chloride (Normal Saline) 1,000 mls @ 125 mls/hr IV ASDIRECTED [facility] Insulin Glargine (Lantus) 15 unit SUBCUT BEDTIME [facility] Last Admin: 10/13/18 21:33 Dose: 15 units Insulin Human Lispro (Humalog) 0 unit SUBCUT QIDACANDBED [facility]; Protocol Last Admin: 10/14/18 07:51 Dose: Not Given Losartan Potassium (Cozaar) 50 mg PO DAILY [facility] Magnesium Hydroxide (Milk Of Magnesia) 30 ml PO BID PRN PRN Reason: Constipation Morphine Sulfate (Morphine) 2 mg IVPUSH Q2H PRN PRN Reason: Breakthrough Pain Naloxone HCl (Narcan) 0.1 mg IVPUSH Q5M PRN PRN Reason: Oversedation Ondansetron HCl (Zofran) 4 mg IVPUSH Q6H PRN PRN Reason: Nausea/Vomiting Oxycodone/Acetaminophen (Percocet 325-5 Mg) 1 - 2 tab PO Q4H PRN PRN Reason: Pain Last Admin: 10/13/18 21:35 Dose: 2 tab Dapagliflozin Propanediol [Farxiga ] 10 Mg 0 each PO DAILY [facility] Senna (Senna) 8.6 mg PO BID PRN PRN Reason: Constipation Simvastatin (Zocor) 40 mg PO BEDTIME [facility] Last Admin: 10/13/18 21:35 Dose: 40 mg Sodium Chloride (Saline Flush) 10 ml FLUSH ASDIRECTED PRN PRN Reason: Keep Vein Open Discontinued Medications Acetaminophen (Tylenol) 975 mg PO ONETIME [facility] Stop: 10/13/18 14:00 Last Admin: 10/13/18 08:29 Dose: 975 mg Bupivacaine HCl (Marcaine 0.25%) Confirm Administered Dose 30 ml .ROUTE .STK- MED ONE Stop: 10/13/18 08:48 Last Admin: 10/13/18 11:08 Dose: 30 ml Cefazolin Sodium (Ancef) Confirm Administered Dose 2 gm .ROUTE .STK-MED ONE Stop: 10/13/18 08:48 Last Admin: 10/13/18 11:04 Dose: 2 gm Cefazolin Sodium (Ancef) Confirm Administered Dose 2 gm .ROUTE .STK-MED ONE Stop: 10/13/18 08:51 Morphine Sulfate 8 mg/Epinephrine HCl 0.3 mg/Cefuroxime Sodium 750 mg/Ketorolac Tromethamine 30 mg/Sodium Chloride 27.9 ml 0 mg .XX ONETIME ONE Stop: 10/13/18 07:05 Last Admin: 10/13/18 11:07 Dose: 788.3 mg Diphenhydramine HCl (Benadryl) Confirm Administered Dose 50 mg .ROUTE .STK-MED ONE Stop: 10/13/18 09:54 Epinephrine HCl (Adrenalin) Confirm Administered Dose 1 mg .ROUTE .STK-MED ONE Stop: 10/13/18 12:27 Fentanyl (Sublimaze) Confirm Administered Dose 100 mcg .ROUTE .STK-MED ONE Stop: 10/13/18 08:48 Fentanyl (Sublimaze) 50 mcg IVPUSH Q5M PRN PRN Reason: Pain Stop: 10/13/18 18:00 Hydrochlorothiazide (Hydrochlorothiazide) 12.5 mg PO DAILY [facility] Lactated Ringer's (Ringers, Lactated) 1,000 mls @ 125 mls/hr IV ASDIRECTED [facility] Stop: 10/13/18 23:00 Last Admin: 10/13/18 12:18 Dose: 125 mls/hr Lactated Ringer's (Ringers, Lactated) Confirm Administered Dose 1,000 mls @ as directed .ROUTE .STK-MED ONE Stop: 10/13/18 10:19 Iodine (Iodine 2% Mild Tincture) Confirm Administered Dose 30 ml .ROUTE .STK- MED ONE Stop: 10/13/18 08:48 Last Admin: 10/13/18 10:58 Dose: 18 ml Lidocaine/Sodium Bicarbonate (Buffered Lidocaine 1% In Ns 8.4%) 0.25 ml IDERM ONETIME PRN PRN Reason: Prior to IV Start Stop: 10/13/18 18:00 Last Admin: 10/13/18 08:45 Dose: 0.25 ml Metformin HCl (Glucophage) 500 mg PO BID [facility] Last Admin: 10/13/18 21:33 Dose: 500 mg Ondansetron HCl (Zofran) Confirm Administered Dose 4 mg .ROUTE .STK-MED ONE Stop: 10/13/18 08:47 Oxycodone HCl (Oxycontin) 10 mg PO ONETIME [facility] Stop: 10/13/18 14:00 Last Admin: 10/13/18 08:29 Dose: 10 mg Pregabalin (Lyrica) 50 mg PO ONETIME [facility] Stop: 10/13/18 14:00 Last Admin: 10/13/18 08:28 Dose: 50 mg Propofol (Diprivan 20 Ml) Confirm Administered Dose 200 mg .ROUTE .STK-MED ONE Stop: 10/13/18 08:47 Propofol (Diprivan 20 Ml) Confirm Administered Dose 200 mg .ROUTE .STK-MED ONE Stop: 10/13/18 10:51 Ropivacaine (Naropin 0.5%) Confirm Administered Dose 30 ml .ROUTE .STK-MED ONE Stop: 10/13/18 12:28 Tranexamic Acid (Cyklokapron) Confirm Administered Dose 1,000 mg .ROUTE .STK- MED ONE Stop: 10/13/18 08:48 Last Admin: 10/13/18 11:11 Dose: 1,000 mg Vancomycin HCl (Vancomycin) Confirm Administered Dose 1 gm .ROUTE .ST-MED ONE Stop: 10/13/18 08:48 Last Admin: 10/13/18 11:09 Dose: 1 gm
[2018-10-14] MEDS: Famotidine 20 MG Tab PO SCH (08:35)
[2018-10-14] MEDS: Docusate Sodium 100 MG Cap PO SCH (08:35)
[2018-10-14] MEDS: Acetaminophen/oxyCODONE 325-5 MG Tab PO PRN ×2 (08:35→13:19)
[2018-10-14] MEDS ORDERED: Aspirin 325 MG Tab.EC PO SCH (09:00)
[2018-10-14] MEDS ORDERED: Hydrochlorothiazide 12.5 MG Cap PO SCH (09:00)
[2018-10-14] MEDS ORDERED: Losartan 25 MG Tab PO SCH (09:00)
[2018-10-14] MEDS ORDERED: Dapagliflozin Propanediol [Farxiga] 10 MG PO SCH (09:00)
[2018-10-14] MEDS: Cyclobenzaprine 10 MG Tab PO PRN (11:12)
--- NOTE | 2018-10-16 11:20 | PCM.OPNOTE ---
- General Post-Op/Procedure Note Date of Surgery/Procedure: 10/13/18 Operative Procedure(s): left total knee arthroplasty Pre Op Diagnosis: left knee osteoarthrosis Post-Op Diagnosis: Same Anesthesia Technique: Local, MAC, Spinal Primary Surgeon: Juan Dior Anesthesia Provider: Juan Diego Rome Welfare Visitor: Leidy Jimenez Welfare Visitor: Jes Lozoya EBNaun in mLs: 300 Complications: None Condition: Good Free Text/Narrative:: size 6/6 9mm 11o33px patella
--- NOTE | 2018-10-16 12:29 | OR ---
DATE OF OPERATION: 10/13/2018 SURGEON: Juan Dior MD OPERATION PERFORMED: Left total knee arthroplasty. PREOPERATIVE DIAGNOSIS: Left knee osteoarthrosis. POSTOPERATIVE DIAGNOSIS: Left knee osteoarthrosis. ANESTHESIA: Local MAC with spinal. ANESTHESIA PROVIDER: Juan Diego Rome CRNA. CONTACT CENTER ANALYST: Leidy Jimenez PA-C and Jes Lozoya LPN. ESTIMATED BLOOD LOSS: 900 mL. COMPLICATIONS: None. CONDITION: Stable. IMPLANTS: 1. [place] size 6 press-fit CR femur. 2. Frankie size 6 press-fit universal tibial baseplate. 3. Frankie size 6, 9 mm CS polyethylene insert. 4. Frankie size 38 x 11 mm press fit patella. DESCRIPTION OF PROCEDURE: The patient was identified in the preop holding area. Proper site was marked and identified by the surgeon. The patient was taken back to the operating theater. After adequate anesthesia, the patient's left lower extremity had a nonsterile tourniquet applied and it was sterilely prepped and draped in the usual sterile fashion. OR time-out was performed. The patient received 2 g IV Ancef. At this time, the left lower extremity was exsanguinated. Tourniquet was insufflated to 300 mmHg. Standard medial parapatellar incision was made. Medial parapatellar arthrotomy was created. Deep fibers of the MCL were raised and anterior fat pad was resected. At this time, attention was turned to the patella. Patella measured at 26 and resected to a 15 for 38 x 11 mm patella. Drill holes were then drilled and found to be in adequate position. The drill was then drilled in the distal femur and the intramedullary distal femoral cutting guide was then placed. 8 mm was resected off the distal femur and was found to be an adequate resection. Sizing guide was placed. It was found to be a size 6 press-fit CR femur that was shown on the implant record at the beginning of this dictation. The drill holes were drilled for the epicondylar axis using [place] line and epicondyles as reference. At this time, the 4-in - 1 cutting block was placed. An anterior posterior and anterior and posterior chamfer cuts were then completed. Attention was turned to the tibia. The posterior medial lateral retractors were placed. The extramedullary tibial guide was placed. It was placed in the old footprint of the ACL. It was aligned with the center of the ankle and 0 degrees of slope, 9 mm was then resected off the unaffected side. There was found to be an acceptable reduction. At this time, posterior osteophytes were removed along with medial and lateral meniscus. A trial implant was placed with a correct sized tibia that was mentioned at the beginning of the dictation. A [place] size 6, 9 mm CS polyethylene insert was then placed. The patient's knee was brought through range of motion. The patella was tracking centrally and was stable to varus and valgus stress. Alignment was found to be roughly at 0 degrees. The tibia was stamped and drilled in proper rotation. The universal tibial base plate was impacted in place. Next, the [place] size 6 press-fit CR femur impacted into place and the Frankie size 6, 9 mm CS polyethylene insert was placed. The patient's knee was brought into full extension. The patella was then press-fit in place at this time. Tourniquet was deflated. One liter dilute Betadine solution was irrigated through the knee along with 3 L of pulse lavage irrigation with Ancef. Periarticular injection was then completed. The patient's knee was brought through a range of motion. Knee was found to be stable to varus valgus stress, the patella was tracking centrally with full range of motion. At this time, a #2 barbed suture was used for closure of the medial parapatellar arthrotomy. Topical tranexamic acid was placed. 2-0 Vicryl was used subcutaneously, Prineo was used for the skin. The patient tolerated the procedure well and was sent to the PACU in stable condition. RICA /[id number] MTDD
== END 2018-10-14 15:53 | disposition home or self-care (01) | DRG 470 ==
LOC: EDSTATUS 14:15 → JD.MS 10-13 08:06
PROVIDERS: ADMIT Orthopaedic Surgery; ATTEND Orthopaedic Surgery
PROC: 0SRD0JA Replacement of Left Knee Joint with Synthetic Substitute, Uncemented, Open Approach (ICD-10-PCS; principal; 2018-10-13)
PROC: 3E0T3BZ Introduction of Anesthetic Agent into Peripheral Nerves and Plexi, Percutaneous Approach (ICD-10-PCS; 2018-10-13)
DX: M17.12 Unilateral primary osteoarthritis, left knee (principal); N17.9 Acute kidney failure, unspecified; M25.762 Osteophyte, left knee; E11.9 Type 2 diabetes mellitus without complications; I10 Essential (primary) hypertension; E78.2 Mixed hyperlipidemia; H54.7 Unspecified visual loss; E78.00 Pure hypercholesterolemia, unspecified; K21.9 Gastro-esophageal reflux disease without esophagitis; G89.18 Other acute postprocedural pain; Z87.891 Personal history of nicotine dependence; Z79.82 Long term (current) use of aspirin; Z79.899 Other long term (current) drug therapy; Z79.84 Long term (current) use of oral hypoglycemic drugs
CPT/HCPCS: 01402; 36415; 64450; 73560-26-LT; 73560-LT; 80053; 82962; 85027; 87641; 97110-GP; 97116-GP; 97161-GP; 97165-GO; 97535-GO; A9270-GY; C1776; J0171; J0690; J0697; J1200; J1815-GY; J1885; J2270; J2405; J2704; J2795; J3010; J3370; J3490; J7040; J7120

== ENCOUNTER 2020-02-21 15:57 | Inpatient (IN) | payer MEDICARE, OTHER ==
[2020-02-21] MEDS ORDERED: Sodium Chloride 0.9% 10 ML Syringe FLUSH PRN (16:36)
[2020-02-21] MEDS: Sodium Chloride 0.9% 1,000 ML IV SCH (17:19)
--- NOTE | 2020-02-21 17:29 | EDM.PDOC ---
ED HPI GENERAL MEDICAL PROBLEM - General Chief Complaint: Fever Stated Complaint: FEVER BODY ACHES WEAK DEHYDRATED Time Seen by Provider: 02/21/20 16:36 Source of Information: Reports: Patient History Limitations: Reports: No Limitations - History of Present Illness INITIAL COMMENTS - FREE TEXT/NARRATIVE: Patient is a 69-year-old male who presents to the emergency department with complaints of a 10-day history of fever, chills, cough, and generalized malaise. He states that he was in [place], [place] this past week for a . While at the he had a syncopal episode and was taken to the ER there. He states that they gave him some IV fluids and checked him for COVID and flu, both of which were found to be negative. He verbalized that his oxygen saturation while at the ER in [place], [place] ranged from 88 to 91% which she states they were not concerned with. Symptoms have not improved. Does not feel them necessarily worsened but he is deftly not feeling any better. Oxygen saturation on triage was 88% on room air. He has no underlying lung pathology that he reports. He denies feeling short of breath. He has not checked his temperatures at home, however states that his temperature while in the ER in [place], [place] was 102. Temperature in triage was 99.5. He does verbalize that he has loose stools about once a day but denies any nausea or vomiting. He states his has been sick with similar symptoms of cough, however he does not think that she has been febrile. He has not had any known sick contacts. - Related Data Allergies Allergy/AdvReac Type Severity Reaction Status Date / Time No Known Allergies Allergy Verified 02/21/20 16:24 Home Meds: Home Meds Dapagliflozin Propanediol [Farxiga] 10 mg PO DAILY 10/10/18 [History] Insulin Degludec [Tresiba] 12 units SQ BEDTIME 10/10/18 [History] Simvastatin [Zocor] 40 mg PO BEDTIME 10/10/18 [History] SitaGLIPtin [Januvia] 100 mg PO DAILY 10/10/18 [History] Valsartan/Hydrochlorothiazide [Valsartan-Hctz 80-12.5 mg Tab] 1 tab PO DAILY 10/10/18 [History] metFORMIN [Glucophage] 1,000 mg PO BID 10/10/18 [History] Aspirin [Ecotrin EC] 325 mg PO BEDTIME 02/21/20 [History] Famotidine [Pepcid] 20 mg PO DAILY 02/21/20 [History] Past Medical History HEENT 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: Impaired Vision, Other (See Below) Other HEENT History: has glasses, dentures Cardiovascular 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: High Cholesterol, Hypertension Respiratory 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: None Gastrointestinal 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: None, GERD Genitourinary 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: None OTHER SPORTS OFFICIAL 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: None Musculoskeletal 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: Osteoarthritis Psychiatric 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: None Endocrine/Metabolic 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: Diabetes, Type II Hematologic 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: None Immunologic 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: None Oncologic (Cancer) 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: None Dermatologic 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: Other (See Below) Other Dermatologic History: cyst removed from lower lip - Past Surgical History Head Surgeries/Procedures: Reports: None Cardiovascular Surgical 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: None Respiratory Surgical 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: None GI Surgical 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: Appendectomy, Colonoscopy Male Surgical 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: None Endocrine Surgical 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: None Neurological Surgical 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: Other (See Below) Other Neurological Surgeries/Procedures: 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 Musculoskeletal Surgical 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: Other (See Below) Other Musculoskeletal Surgeries/Procedures:: left knee surgery Oncologic Surgical 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: None Dermatological Surgical 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: None Social & Family History - Tobacco Use Smoking Status *Q: Former Smoker Used Tobacco, but Quit: Yes Month/Year Tobacco Last Used: 40 years ago - Caffeine Use Caffeine Use: Reports: Coffee - Recreational Drug Use Recreational Drug Use: No ED ROS GENERAL - Review of Systems Review Of Systems: See Below Constitutional: Reports: No Symptoms, Fever, Chills, Malaise HEENT: Reports: No Symptoms Respiratory: Reports: Cough. Denies: Shortness of Breath, Wheezing, Pleuritic Chest Pain Cardiovascular: Reports: Syncope (Saturday.). Denies: Chest Pain Endocrine: Reports: No Symptoms GI/Abdominal: Reports: Diarrhea. Denies: Abdominal Pain, Nausea, Vomiting : Reports: No Symptoms Musculoskeletal: Reports: No Symptoms Skin: Reports: No Symptoms Neurological: Reports: No Symptoms. Denies: Dizziness, Headache Psychiatric: Reports: No Symptoms Hematologic/Lymphatic: Reports: No Symptoms Immunologic: Reports: No Symptoms ED EXAM, GENERAL - Physical Exam Exam: See Below Exam Limited By: No Limitations General Appearance: Alert, WD/WN, No Apparent Distress Respiratory/Chest: No Respiratory Distress, No Accessory Muscle Use, Chest Non- Tender, Crackles (Bilateral bases) Cardiovascular: Normal Peripheral Pulses, Regular Rate, Rhythm, No Edema, No Gallop, No JVD, No Murmur, No Rub GI/Abdominal: Normal Bowel Sounds, Soft, Non-Tender, No Organomegaly, No Distention, No Abnormal Bruit, No Mass Neurological: Alert, Oriented, CN II-XII Intact, Normal Cognition, Normal Gait, Normal Reflexes, No Motor/Sensory Deficits Psychiatric: Normal Affect, Normal Mood Skin Exam: Warm, Dry, Intact, Normal Color, No Rash Course - Vital Signs Last Recorded V/S: Last Vital Signs Temp 97.7 F 02/23/20 13:24 Pulse 63 02/23/20 13:24 Resp 19 02/23/20 13:24 BP 152/95 H 02/23/20 13:24 Pulse Ox 93 L 02/23/20 13:24 - Orders/Labs/Meds Orders: Medication Orders Acetaminophen (Tylenol) 650 mg PO Q4H PRN PRN Reason: Pain (Mild 1-3)/fever Aspirin (Ecotrin) 325 mg PO BEDTIME [facility] Last Admin: 02/22/20 21:24 Dose: 325 mg Documented by: KYLIE Cholecalciferol (Vitamin D3) 5,000 unit PO DAILY [facility] Last Admin: 02/23/20 15:22 Dose: 5,000 unit Documented by: CHELE Dexamethasone (Dexamethasone) 6 mg PO Q24H [facility] Stop: 03/02/20 20:31 Last Admin: 02/22/20 21:24 Dose: 6 mg Documented by: Admin: 02/21/20 22:31 Dose: 6 mg Documented by: CRISTÓBAL Enoxaparin Sodium (Lovenox) 40 mg SUBCUT DAILY@2030 [facility] Last Admin: 02/22/20 21:23 Dose: 40 mg Documented by: Admin: 02/21/20 22:31 Dose: 40 mg Documented by: CRISTÓBAL Famotidine (Pepcid) 20 mg PO DAILY [facility] Last Admin: 02/23/20 08:10 Dose: 20 mg Documented by: Admin: 02/22/20 07:59 Dose: 20 mg Documented by: NAVI Hydrochlorothiazide (Hydrochlorothiazide) 12.5 mg PO DAILY [facility] Last Admin: 02/23/20 08:10 Dose: 12.5 mg Documented by: Admin: 02/22/20 08:00 Dose: 12.5 mg Documented by: NAVI Ceftriaxone Sodium 2 gm/ (Sodium Chloride) 100 mls @ 200 mls/hr IV Q24H [facility] Stop: 02/25/20 23:00 Last Admin: 02/22/20 21:23 Dose: 200 mls/hr Documented by: Infusion: 02/21/20 21:45 Dose: 200 mls/hr Documented by: Admin: 02/21/20 21:15 Dose: 200 mls/hr Documented by: CRISTÓBAL Azithromycin 500 mg/ Sodium (Chloride) 250 mls @ 250 mls/hr IV Q24H [facility] Stop: 02/23/20 23:00 Last Admin: 02/22/20 21:34 Dose: 250 mls/hr Documented by: Infusion: 02/21/20 23:27 Dose: 250 mls/hr Documented by: Admin: 02/21/20 22:27 Dose: 250 mls/hr Documented by: CRISTÓBAL REMDESIVIR (EUA) 100 mg/ (Sodium Chloride) 100 mls @ 100 mls/hr IV Q24H [facility] Stop: 02/25/20 23:59 Last Admin: 02/22/20 23:45 Dose: Not Given Documented by: Admin: 02/22/20 21:39 Dose: 100 mls/hr Documented by: KYLIE Insulin Glargine (Lantus) 10 unit SUBCUT BEDTIME [facility] Insulin Human Lispro (Humalog) 0 unit SUBCUT QIDACANDBED [facility]; Protocol Losartan Potassium (Cozaar) 50 mg PO DAILY [facility] Last Admin: 02/23/20 08:09 Dose: 50 mg Documented by: Admin: 02/22/20 07:59 Dose: 50 mg Documented by: NAVI Ondansetron HCl (Zofran) 4 mg IV Q4H PRN PRN Reason: Nausea/Vomiting Rosuvastatin Calcium (Crestor) 20 mg PO DAILY [facility] Last Admin: 02/23/20 08:09 Dose: 20 mg Documented by: Admin: 02/22/20 07:59 Dose: 20 mg Documented by: NAVI Sodium Chloride (Saline Flush) 10 ml FLUSH ASDIRECTED PRN PRN Reason: Keep Vein Open Last Admin: 02/21/20 17:19 Dose: 10 ml Documented by: EZIO Labs: Laboratory Tests 02/21/20 02/21/20 02/21/20 Range/Units 17:02 17:05 17:05 WBC 5.82 (4.23-9.07) K/mm3 RBC 4.47 L (4.63-6.08) M/mm3 Hgb 12.9 L (13.7-17.5) gm/dl Hct 40.0 L (40.1-51.0) % MCV 89.5 (79.0-92.2) fl MCH 28.9 (25.7-32.2) pg MCHC 32.3 (32.2-35.5) g/dl RDW Std Deviation 43.0 (35.1-43.9) fL Plt Count 236 (163-337) K/mm3 MPV 9.6 (9.4-12.3) fl Neut % (Auto) 75.9 H (34.0-67.9) % Lymph % (Auto) 11.0 L (21.8-53.1) % Stanton % (Auto) 11.9 (5.3-12.2) % Eos % (Auto) 0 L (0.8-7.0) Baso % (Auto) 0.7 (0.1-1.2) % Neut # (Auto) 4.42 (1.78-5.38) K/mm3 Lymph # (Auto) 0.64 L (1.32-3.57) K/mm3 Stanton # (Auto) 0.69 (0.30-0.82) K/mm3 Eos # (Auto) 0.00 L (0.04-0.54) K/mm3 Baso # (Auto) 0.04 (0.01-0.08) K/mm3 Manual Slide Review Normal smear D-Dimer, Quantitative 1.16 H (0.19-0.50) mg/L Sodium (136-145) mEq/L Potassium (3.5-5.1) mEq/L Chloride (98-107) mEq/L Carbon Dioxide (21-32) mEq/L Anion Gap (5-15) BUN (7-18) mg/dL Creatinine (0.7-1.3) mg/dL Est Cr Clr Drug Dosing mL/min Estimated GFR (MDRD) (>60) mL/min BUN/Creatinine Ratio (14-18) Glucose (80-115) mg/dL Lactic Acid (0.4-2.0) mmol/L Calcium (8.5-10.1) mg/dL Total Bilirubin (0.2-1.0) mg/dL AST (15-37) U/L ALT (16-63) U/L Alkaline Phosphatase (46-116) U/L C-Reactive Protein (<1.0) mg/dL Total Protein (6.4-8.2) g/dl Albumin (3.4-5.0) g/dl Globulin gm/dL Albumin/Globulin Ratio (1-2) SARS Virus RNA (PCR) Positive H (NEGATIVE) 02/21/20 02/21/20 Range/Units 17:05 17:05 WBC (4.23-9.07) K/mm3 RBC (4.63-6.08) M/mm3 Hgb (13.7-17.5) gm/dl Hct (40.1-51.0) % MCV (79.0-92.2) fl MCH (25.7-32.2) pg MCHC (32.2-35.5) g/dl RDW Std Deviation (35.1-43.9) fL Plt Count (163-337) K/mm3 MPV (9.4-12.3) fl Neut % (Auto) (34.0-67.9) % Lymph % (Auto) (21.8-53.1) % Stanton % (Auto) (5.3-12.2) % Eos % (Auto) (0.8-7.0) Baso % (Auto) (0.1-1.2) % Neut # (Auto) (1.78-5.38) K/mm3 Lymph # (Auto) (1.32-3.57) K/mm3 Stanton # (Auto) (0.30-0.82) K/mm3 Eos # (Auto) (0.04-0.54) K/mm3 Baso # (Auto) (0.01-0.08) K/mm3 Manual Slide Review D-Dimer, Quantitative (0.19-0.50) mg/L Sodium 136 (136-145) mEq/L Potassium 4.2 (3.5-5.1) mEq/L Chloride 97 L (98-107) mEq/L Carbon Dioxide 28 (21-32) mEq/L Anion Gap 15.2 H (5-15) BUN 16 (7-18) mg/dL Creatinine 1.2 (0.7-1.3) mg/dL Est Cr Clr Drug Dosing 59.14 mL/min Estimated GFR (MDRD) 60 (>60) mL/min BUN/Creatinine Ratio 13.3 L (14-18) Glucose 112 (80-115) mg/dL Lactic Acid 0.9 (0.4-2.0) mmol/L Calcium 8.3 L (8.5-10.1) mg/dL Total Bilirubin 0.7 (0.2-1.0) mg/dL AST 30 (15-37) U/L ALT 16 (16-63) U/L Alkaline Phosphatase 65 (46-116) U/L C-Reactive Protein 13.1 H* (<1.0) mg/dL Total Protein 7.4 (6.4-8.2) g/dl Albumin 2.8 L (3.4-5.0) g/dl Globulin 4.6 gm/dL Albumin/Globulin Ratio 0.6 L (1-2) SARS Virus RNA (PCR) (NEGATIVE) Meds: Medications Generic Name Dose Route Start Last Admin Trade Name Freq PRN Reason Stop Dose Admin Acetaminophen 650 mg 02/21/20 22:57 Tylenol PO Q4H PRN Pain (Mild 1-3)/fever Aspirin 325 mg 02/22/20 21:00 02/22/20 21:24 Ecotrin PO 325 mg BEDTIME [facility] Administration Cholecalciferol 5,000 unit 02/23/20 14:15 02/23/20 15:22 Vitamin D3 PO 5,000 unit DAILY [facility] Administration Dexamethasone 6 mg 02/21/20 20:30 02/22/20 21:24 Dexamethasone PO 03/02/20 20:31 6 mg Q24H [facility] Administration Enoxaparin Sodium 40 mg 02/21/20 20:30 02/22/20 21:23 Lovenox SUBCUT 40 mg DAILY@2030 [facility] Administration Famotidine 20 mg 02/22/20 09:00 02/23/20 08:10 Pepcid PO 20 mg DAILY [facility] Administration Hydrochlorothiazide 12.5 mg 02/22/20 09:00 02/23/20 08:10 Hydrochlorothiazide PO 12.5 mg DAILY [facility] Administration Ceftriaxone Sodium 2 gm/ 100 mls @ 200 mls/hr 02/21/20 20:30 02/22/20 21:23 Sodium Chloride IV 02/25/20 23:00 200 mls/hr Q24H [facility] Administration Azithromycin 500 mg/ Sodium 250 mls @ 250 mls/hr 02/21/20 21:00 02/22/20 21:34 Chloride IV 02/23/20 23:00 250 mls/hr Q24H [facility] Administration REMDESIVIR (EUA) 100 mg/ 100 mls @ 100 mls/hr 02/22/20 23:00 02/22/20 23:45 Sodium Chloride IV 02/25/20 23:59 Not Given Q24H [facility] Insulin Glargine 10 unit 02/23/20 21:00 Lantus SUBCUT BEDTIME [facility] Insulin Human Lispro 0 unit 02/23/20 22:00 Humalog SUBCUT QIDACANDBED [facility] Protocol Losartan Potassium 50 mg 02/22/20 09:00 02/23/20 08:09 Cozaar PO 50 mg DAILY [facility] Administration Ondansetron HCl 4 mg 02/21/20 22:57 Zofran IV Q4H PRN Nausea/Vomiting Rosuvastatin Calcium 20 mg 02/22/20 09:00 02/23/20 08:09 Crestor PO 20 mg DAILY [facility] Administration Sodium Chloride 10 ml 02/21/20 16:36 02/21/20 17:19 Saline Flush FLUSH 10 ml ASDIRECTED PRN Administration Keep Vein Open Discontinued Medications Generic Name Dose Route Start Last Admin Trade Name Freq PRN Reason Stop Dose Admin Sodium Chloride 1,000 mls @ 100 mls/hr 02/21/20 16:45 02/22/20 02:48 Normal Saline IV 100 mls/hr ASDIRECTED [facility] Administration REMDESIVIR (EUA) 200 mg/ 250 mls @ 250 mls/hr 02/21/20 20:18 02/21/20 22:59 Sodium Chloride IV 02/21/20 20:19 250 mls/hr ONETIME ONE Administration Tocilizumab 800 mg/ Sodium 100 mls @ 100 mls/hr 02/21/20 22:00 Chloride IV 02/21/20 22:59 ONETIME ONE Tocilizumab 800 mg/ Sodium 100 mls @ 100 mls/hr 02/21/20 22:00 02/21/20 22:51 Chloride IV 02/21/20 22:59 100 mls/hr ONETIME ONE Administration Tocilizumab 800 mg/ Sodium 100 mls @ 100 mls/hr 02/22/20 12:00 02/22/20 12:53 Chloride IV 02/22/20 12:59 100 mls/hr ONETIME ONE Administration Insulin Glargine 10 unit 02/22/20 21:00 02/22/20 21:30 Lantus SUBCUT 10 units BEDTIME [facility] Administration Insulin Glargine 12 unit 02/23/20 21:00 Lantus SUBCUT BEDTIME [facility] Insulin Human Lispro 0 unit 02/21/20 22:00 02/23/20 18:00 Humalog SUBCUT Not Given QIDACANDBED [facility] Protocol - Re-Assessments/Exams Free Text/Narrative Re-Assessment/Exam: Patient is a 69-year-old male who presents to the emergency department with complaints of a 10-day history of fever, chills, cough, and generalized malaise. He states that this last Saturday he was in [place], [place] for a . He had a syncopal episode and was taken to the ER there. He was found to have a fever 102.0. States his oxygen saturation was 88 to 91% on room air while there. He states that they tested him for COVID and flu, both of which were found to be negative. The did no further testing such as chest x-ray or blood work that he is aware of. They discharged home. He presents to the ER this evening because his symptoms are not improving, however he does not feel that necessarily getting worse. Oxygen saturation was 88% on room air. He is currently on 1-1/2 L/NC satting 95 to 96%. He does not feel like he is short of breath. On exam, he does have fine crackles in the bilateral bases. History and exam is concerning for Covid19. I have ordered a CBC, CMP, CRP, d-dimer, blood cultures, chest x-ray, and 1 hour COVID test. 02/21/20 1840 Hematology was significant for hemoglobin slightly low at 12.9, d-dimer elevated at 1.16, anion gap 15.2, CRP elevated at 13.1. Chest x-ray shows bilateral pneumonia, either bacterial or viral. Coronavirus test was positive. Discussed findings with patient. Recommend admission to the hospital as he is hypoxic on room air. Called and spoke with hospitalist, Dr. Flood. He has accepted the patient for admission. Admission orders have been entered. Departure - Departure Time of Disposition: 18:40 Disposition: Admitted As Inpatient 65 Condition: Good Clinical Impression: COVID-19, Hypoxia, Elevated d-dimer - Discharge Information Sepsis Event Note (ED) - Evaluation Sepsis Screening Result: No Definite Risk
--- NOTE | 2020-02-21 18:10 | CR ---
Chest: Portable supine view of the chest was obtained. Comparison: No previous study. Heart size and mediastinum are normal. Patchy areas of increased density are seen throughout both sides of the chest most likely related to pneumonia, either bacterial or viral. Bony structures are grossly intact. Impression: 1. Patchy areas of increased density on both sides of the chest as noted above. Diagnostic code #3 This report was dictated in MDT
[2020-02-21] MEDS ORDERED: REMDESIVIR 200 MG in Sodium Chloride 0.9% 250 ML IV ONE (20:18)
[2020-02-21] MEDS ORDERED: Tocilizumab 400 MG/20 ML SDV SUBCUT ONE (20:20)
[2020-02-21] MEDS: cefTRIAXone 2 GM in Sodium Chloride 0.9% 100 ML IV SCH (21:15)
[2020-02-21] MEDS: Azithromycin 500 MG in Sodium Chloride 0.9% 250 ML IV SCH (22:27)
[2020-02-21] MEDS: Dexamethasone 4 MG Tab PO SCH (22:31)
[2020-02-21] MEDS: Enoxaparin 40 MG/0.4 ML Syringe SUBCUT SCH (22:31)
[2020-02-21] MEDS: Insulin Lispro 100 Units/ML 3 ML Vial SUBCUT SCH (22:32)
[2020-02-21] MEDS ORDERED: Ondansetron 4 MG/2 ML SDV IV PRN (22:57)
[2020-02-21] MEDS ORDERED: Acetaminophen 325 MG Tab PO PRN (22:57)
--- NOTE | 2020-02-21 23:07 | PCM.HP.2 ---
H&P History of Present Illness - General Date of Service: 02/21/20 Admit Problem/Dx: Admission Diagnosis/Problem Admission Diagnosis/Problem Pneumonia - History of Present Illness Initial Comments - Free Text/Narative: 69-year-old male with a history of diabetes, hypertension, hyperlipidemia, and reflux presented to the emergency department with complaints of a 10-day history of fever, chills, cough, and generalized malaise. Patient was in [place], [place] this past week for . At the he had a syncopal episode and was taken to the emergency room. He had flu and COVID testing which were both negative. He was given IV fluids. He states he did have oxygen saturations at that time of 88 to 91%. Patient states he has not had any improvement in his symptoms and is feeling worse. Patient states he had a temperature of 102 in [place], [place] ER. He denies shortness of breath, nausea, vomiting, but does have some loose stools. In our emergency department his pulse ox was 88% on room air and his temperature was 99.5. In our emergency department patient was found to be positive for coronavirus. Patient required 1 2 L nasal cannula to keep his oxygen saturations in the low to mid 90s. His white count was 5.8, hemoglobin 12.9, platelet count 236, d- dimer 1.16, lactic acid 0.9, sodium 136, potassium 4.2, anion gap 15.2, BUN 16, creatinine 1.2, C-reactive protein 13.1. - Related Data Allergies/Adverse Reactions: Allergies Allergy/AdvReac Type Severity Reaction Status Date / Time No Known Allergies Allergy Verified 02/21/20 16:24 Home Medications: Home Meds Dapagliflozin Propanediol [Farxiga] 10 mg PO DAILY 10/10/18 [History] Insulin Degludec [Tresiba] 12 units SQ BEDTIME 10/10/18 [History] Simvastatin [Zocor] 40 mg PO BEDTIME 10/10/18 [History] SitaGLIPtin [Januvia] 100 mg PO DAILY 10/10/18 [History] Valsartan/Hydrochlorothiazide [Valsartan-Hctz 80-12.5 mg Tab] 1 tab PO DAILY 10/10/18 [History] metFORMIN [Glucophage] 1,000 mg PO BID 10/10/18 [History] Aspirin [Ecotrin EC] 325 mg PO BEDTIME 02/21/20 [History] Famotidine [Pepcid] 20 mg PO DAILY 02/21/20 [History] Past Medical History HEENT 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: Impaired Vision, Other (See Below) Other HEENT History: has glasses, dentures Cardiovascular 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: High Cholesterol, Hypertension Respiratory 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: None Gastrointestinal 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: GERD Genitourinary 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: None 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: None Musculoskeletal 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: Osteoarthritis Psychiatric 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: None Endocrine/Metabolic 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: Diabetes, Type II Hematologic 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: None Immunologic 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: None Oncologic (Cancer) 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: None Dermatologic 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: Other (See Below) Other Dermatologic History: cyst removed from lower lip - Past Surgical History Head Surgeries/Procedures: Reports: None Cardiovascular Surgical 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: None Respiratory Surgical 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: None GI Surgical 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: Appendectomy, Colonoscopy Male Surgical 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: None Endocrine Surgical 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: None Neurological Surgical 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: Other (See Below) Other Neurological Surgeries/Procedures: 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 Musculoskeletal Surgical 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: Joint Replacement, Other (See Below) Other Musculoskeletal Surgeries/Procedures:: left knee surgery Oncologic Surgical 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: None Dermatological Surgical 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: None Social & Family History - Family History Family Medical History: Noncontributory - Tobacco Use Smoking Status *Q: Former Smoker Used Tobacco, but Quit: Yes Month/Year Tobacco Last Used: 40 years ago Second Hand Smoke Exposure: No - Caffeine Use Caffeine Use: Reports: Coffee - Recreational Drug Use Recreational Drug Use: No H&P Review of Systems - Review of Systems: Review Of Systems: Comprehensive ROS is negative, except as noted in HPI. Exam - Exam Exam: See Below - Vital Signs Vital Signs: Last Vital Signs Temp 99.3 F 02/21/20 20:23 Pulse 85 02/21/20 20:23 Resp 13 02/21/20 20:23 BP 143/77 H 02/21/20 20:23 Pulse Ox 92 L 02/21/20 20:23 Weight: 103.646 kg - Exam Quality Assessment: Supplemental Oxygen General: Alert, Oriented, 4 HEENT: Conjunctiva Clear, Hearing Intact, Mucosa Moist & [place] Neck: Supple, Trachea Midline, 2 Lungs: Clear to Auscultation, Normal Respiratory Effort Cardiovascular: Regular Rate, Regular Rhythm GI/Abdominal Exam: Normal Bowel Sounds, Soft, Non-Tender, No Distention, No Abnormal Bruit Extremities: Normal Inspection, Normal Range of Motion, Non-Tender, No Pedal Edema, Normal Capillary Refill Skin: Warm, Dry, Intact Neurological: Cranial Nerves Intact Neuro Extensive - Mental Status: Alert, Oriented x3, Normal Mood/Affect, Normal Cognition, Memory Intact Neuro Extensive - Motor, Sensory, Reflexes: CN II-XII Intact, Normal Gait Psychiatric: Alert, Normal Affect, Normal Mood - Patient Data Lab Results Last 24 hrs: Laboratory Results - last 24 hr 02/21/20 02/21/20 02/21/20 Range/Units 17:02 17:05 17:05 WBC 5.82 (4.23-9.07) K/mm3 RBC 4.47 L (4.63-6.08) M/mm3 Hgb 12.9 L (13.7-17.5) gm/dl Hct 40.0 L (40.1-51.0) % MCV 89.5 (79.0-92.2) fl MCH 28.9 (25.7-32.2) pg MCHC 32.3 (32.2-35.5) g/dl RDW Std Deviation 43.0 (35.1-43.9) fL Plt Count 236 (163-337) K/mm3 MPV 9.6 (9.4-12.3) fl Neut % (Auto) 75.9 H (34.0-67.9) % Lymph % (Auto) 11.0 L (21.8-53.1) % [place] % (Auto) 11.9 (5.3-12.2) % Eos % (Auto) 0 L (0.8-7.0) Baso % (Auto) 0.7 (0.1-1.2) % Neut # (Auto) 4.42 (1.78-5.38) K/mm3 Lymph # (Auto) 0.64 L (1.32-3.57) K/mm3 [place] # (Auto) 0.69 (0.30-0.82) K/mm3 Eos # (Auto) 0.00 L (0.04-0.54) K/mm3 Baso # (Auto) 0.04 (0.01-0.08) K/mm3 Manual Slide Review Normal smear D-Dimer, Quantitative 1.16 H (0.19-0.50) mg/L Sodium (136-145) mEq/L Potassium (3.5-5.1) mEq/L Chloride (98-107) mEq/L Carbon Dioxide (21-32) mEq/L Anion Gap (5-15) BUN (7-18) mg/dL Creatinine (0.7-1.3) mg/dL Est Cr Clr Drug Dosing mL/min Estimated GFR (MDRD) (>60) mL/min BUN/Creatinine Ratio (14-18) Glucose (80-115) mg/dL POC Glucose (80-115) mg/dL Lactic Acid (0.4-2.0) mmol/L Calcium (8.5-10.1) mg/dL Total Bilirubin (0.2-1.0) mg/dL AST (15-37) U/L ALT (16-63) U/L Alkaline Phosphatase (46-116) U/L C-Reactive Protein (<1.0) mg/dL Total Protein (6.4-8.2) g/dl Albumin (3.4-5.0) g/dl Globulin gm/dL Albumin/Globulin Ratio (1-2) SARS Virus RNA (PCR) Positive H (NEGATIVE) 02/21/20 02/21/20 02/21/20 Range/Units 17:05 17:05 22:04 WBC (4.23-9.07) K/mm3 RBC (4.63-6.08) M/mm3 Hgb (13.7-17.5) gm/dl Hct (40.1-51.0) % MCV (79.0-92.2) fl MCH (25.7-32.2) pg MCHC (32.2-35.5) g/dl RDW Std Deviation (35.1-43.9) fL Plt Count (163-337) K/mm3 MPV (9.4-12.3) fl Neut % (Auto) (34.0-67.9) % Lymph % (Auto) (21.8-53.1) % [place] % (Auto) (5.3-12.2) % Eos % (Auto) (0.8-7.0) Baso % (Auto) (0.1-1.2) % Neut # (Auto) (1.78-5.38) K/mm3 Lymph # (Auto) (1.32-3.57) K/mm3 [place] # (Auto) (0.30-0.82) K/mm3 Eos # (Auto) (0.04-0.54) K/mm3 Baso # (Auto) (0.01-0.08) K/mm3 Manual Slide Review D-Dimer, Quantitative (0.19-0.50) mg/L Sodium 136 (136-145) mEq/L Potassium 4.2 (3.5-5.1) mEq/L Chloride 97 L (98-107) mEq/L Carbon Dioxide 28 (21-32) mEq/L Anion Gap 15.2 H (5-15) BUN 16 (7-18) mg/dL Creatinine 1.2 (0.7-1.3) mg/dL Est Cr Clr Drug Dosing 59.14 mL/min Estimated GFR (MDRD) 60 (>60) mL/min BUN/Creatinine Ratio 13.3 L (14-18) Glucose 112 (80-115) mg/dL POC Glucose 102 (80-115) mg/dL Lactic Acid 0.9 (0.4-2.0) mmol/L Calcium 8.3 L (8.5-10.1) mg/dL Total Bilirubin 0.7 (0.2-1.0) mg/dL AST 30 (15-37) U/L ALT 16 (16-63) U/L Alkaline Phosphatase 65 (46-116) U/L C-Reactive Protein 13.1 H* (<1.0) mg/dL Total Protein 7.4 (6.4-8.2) g/dl Albumin 2.8 L (3.4-5.0) g/dl Globulin 4.6 gm/dL Albumin/Globulin Ratio 0.6 L (1-2) SARS Virus RNA (PCR) (NEGATIVE) Result Diagrams: 02/22/20 05:54 02/22/20 05:54 Sepsis Event Note - Evaluation Sepsis Screening Result: No Definite Risk - Focused Exam Vital Signs: Vital Signs Temp Temp Pulse Pulse Resp BP BP 02/21/20 20:23 99.3 F 85 13 143/77 H 02/21/20 17:17 96 20 02/21/20 16:22 99.5 F 94 18 143/72 H Pulse Ox 02/21/20 20:23 92 L 02/21/20 17:17 95 02/21/20 16:22 88 L - Problem List (1) COVID-19 SNOMED Code(s): 696599993 ICD Code: U07.1 - COVID-19 Status: Acute Current Visit: Yes (2) Hypoxia SNOMED Code(s): 231613562 ICD Code: R09.02 - HYPOXEMIA Status: Acute Current Visit: Yes (3) Diabetes mellitus, type II SNOMED Code(s): 53941280 ICD Code: E11.9 - TYPE 2 DIABETES MELLITUS WITHOUT COMPLICATIONS Status: Acute Priority: Medium Current Visit: No Qualifiers: 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 retirement insulin use st atus Diabetes mellitus complication status: with unspecified complications (4) HTN (hypertension) SNOMED Code(s): 64490006 ICD Code: I10 - ESSENTIAL (PRIMARY) HYPERTENSION Status: Acute Priority: Medium Current Visit: No Qualifiers: Hypertension type: unspecified Qualified Code(s): I10 - Essential (primary) hypertension Problem List Initiated/Reviewed/Updated: Yes Orders Last 24hrs: Active Orders 24 hr Category Date Time Status Patient Status [ADT] Routine ADT 02/21/20 18:37 Active Blood Glucose Check, Bedside [RC] QIDACANDBED Care 02/21/20 20:23 Active Oxygen Therapy [RC] PRN Care 02/21/20 22:57 Ordered Peripheral IV Care [RC] . DIRECTED Care 02/21/20 16:36 Active Up ad Lori [RC] ASDIRECTED Care 02/21/20 22:57 Ordered VTE/DVT Education [RC] PER UNIT ROUTINE Care 02/21/20 22:57 Ordered Vital Signs [RC] Q4H Care 02/21/20 22:57 Ordered CBC WITH AUTO DIFF [HEME] AM Lab 02/22/20 05:11 Ordered CBC WITH AUTO DIFF [HEME] AM Lab 02/23/20 05:11 Ordered CBC WITH AUTO DIFF [HEME] AM Lab 02/24/20 05:11 Ordered CBC WITH AUTO DIFF [HEME] AM Lab 02/25/20 05:11 Ordered CBC WITH AUTO DIFF [HEME] AM Lab 02/26/20 05:11 Ordered COMPREHENSIVE METABOLIC PN,CMP [CHEM] AM Lab 02/22/20 05:11 Ordered COMPREHENSIVE METABOLIC PN,CMP [CHEM] AM Lab 02/23/20 05:11 Ordered COMPREHENSIVE METABOLIC PN,CMP [CHEM] AM Lab 02/24/20 05:11 Ordered COMPREHENSIVE METABOLIC PN,CMP [CHEM] AM Lab 02/25/20 05:11 Ordered COMPREHENSIVE METABOLIC PN,CMP [CHEM] AM Lab 02/26/20 05:11 Ordered CULTURE BLOOD [BC] Stat Lab 02/21/20 17:05 Received CULTURE BLOOD [BC] Stat Lab 02/21/20 17:20 Received FERRITIN [CHEM] Routine Lab 02/21/20 23:03 Ordered FIBRINOGEN [COAG] AM Lab 02/22/20 05:11 Ordered INR,PT,PROTHROMBIN TIME [COAG] Routine Lab 02/21/20 22:59 Ordered MAGNESIUM [CHEM] AM Lab 02/22/20 05:11 Ordered MAGNESIUM [CHEM] AM Lab 02/23/20 05:11 Ordered MAGNESIUM [CHEM] AM Lab 02/24/20 05:11 Ordered MAGNESIUM [CHEM] AM Lab 02/25/20 05:11 Ordered PHOSPHORUS [CHEM] AM Lab 02/22/20 05:11 Ordered PHOSPHORUS [CHEM] AM Lab 02/23/20 05:11 Ordered PHOSPHORUS [CHEM] AM Lab 02/24/20 05:11 Ordered PHOSPHORUS [CHEM] AM Lab 02/25/20 05:11 Ordered PRO B-TYPE NATRIUR PEPT,BNPPRO [CHEM] AM Lab 02/22/20 05:11 Ordered PROCALCITONIN [REF] Routine Lab 02/21/20 22:59 Ordered PTT,PARTIAL THROMBOPLSTIN TIME [COAG] Routine Lab 02/21/20 22:59 Ordered TROPONIN I [CHEM] AM Lab 02/22/20 05:11 Ordered Acetaminophen [TylenoL] Med 02/21/20 22:57 Ordered 650 mg PO Q4H PRN Aspirin [Ecotrin] Med 02/22/20 21:00 Ordered 325 mg PO BEDTIME Azithromycin [Zithromax] 500 mg Med 02/21/20 21:00 Active Sodium Chloride 0.9% [Normal Saline] 250 ml IV Q24H Enoxaparin [Lovenox] Med 02/21/20 20:30 Active 40 mg SUBCUT DAILY@2029 Famotidine [Pepcid] Med 02/22/20 09:00 Ordered 20 mg PO DAILY Insulin Lispro [HumaLOG] Med 02/21/20 22:00 Active See Protocol SUBCUT QIDACANDBED Ondansetron [Zofran] Med 02/21/20 22:57 Ordered 4 mg IV Q4H PRN Rosuvastatin [Crestor] Med 02/22/20 09:00 Ordered 20 mg PO DAILY Sodium Chloride 0.9% [Normal Saline] 1,000 ml Med 02/21/20 16:45 Active IV ASDIRECTED Sodium Chloride 0.9% [Saline Flush] Med 02/21/20 16:36 Active 10 ml FLUSH ASDIRECTED PRN Valsartan/Hydrochlorothiazide [Valsartan-Hctz 80-12.5 Med 02/22/20 09:00 Ordered mg Tab] 1 tab PO DAILY cefTRIAXone [Rocephin] 2 gm Med 02/21/20 20:30 Active Sodium Chloride 0.9% [Normal Saline] 100 ml IV Q24H dexAMETHasone Med 02/21/20 20:30 Active 6 mg PO Q24H Blood Culture x2 Reflex Set [OM.PC] Stat Oth 02/21/20 16:37 Ordered Peripheral IV Insertion Adult [OM.PC] Stat Oth 02/21/20 16:36 Ordered Resuscitation Status Routine Resus Stat 02/21/20 22:57 Ordered Medication Orders Acetaminophen (Tylenol) 650 mg PO Q4H PRN PRN Reason: Pain (Mild 1-3)/fever Aspirin (Ecotrin) 325 mg PO BEDTIME [facility] Dexamethasone (Dexamethasone) 6 mg PO Q24H [facility] Stop: 03/02/20 20:31 Last Admin: 02/21/20 22:31 Dose: 6 mg Documented by: CRISTÓBAL Enoxaparin Sodium (Lovenox) 40 mg SUBCUT DAILY@2030 [facility] Last Admin: 02/21/20 22:31 Dose: 40 mg Documented by: CRISTÓBAL Famotidine (Pepcid) 20 mg PO DAILY [facility] Sodium Chloride (Normal Saline) 1,000 mls @ 100 mls/hr IV ASDIRECTED [facility] Last Admin: 02/21/20 17:19 Dose: 100 mls/hr Documented by: EZIO Ceftriaxone Sodium 2 gm/ (Sodium Chloride) 100 mls @ 200 mls/hr IV Q24H [facility] Stop: 02/26/20 20:31 Last Admin: 02/21/20 22:27 Dose: 200 mls/hr Documented by: CRISTÓBAL Azithromycin 500 mg/ Sodium (Chloride) 250 mls @ 250 mls/hr IV Q24H [facility] Stop: 02/24/20 21:01 Last Admin: 02/21/20 22:27 Dose: 250 mls/hr Documented by: CRISTÓBAL Insulin Human Lispro (Humalog) 0 unit SUBCUT QIDACANDBED [facility]; Protocol Last Admin: 02/21/20 22:32 Dose: Not Given Documented by: CRISTÓBAL Non-Formulary Medication (Valsartan/Hydrochlorothiazide [Valsartan-Hctz 80-12.5 Mg Tab]) 1 tab PO DAILY [facility] Ondansetron HCl (Zofran) 4 mg IV Q4H PRN PRN Reason: Nausea/Vomiting Rosuvastatin Calcium (Crestor) 20 mg PO DAILY [facility] Sodium Chloride (Saline Flush) 10 ml FLUSH ASDIRECTED PRN PRN Reason: Keep Vein Open Last Admin: 02/21/20 17:19 Dose: 10 ml Documented by: EZIO Assessment/Plan Comment:: Assessment COVID-19 infection Pneumonia Hypoxemia * Symptoms started 10 days ago to include fever, chills, cough, malaise, and loose stools * T-max 102 at the [place], [place] ER * Chest x-ray with patchy areas of increased density on both sides of the chest consistent with pneumonia * Oxygen saturation 88% on room air at triage requiring 1 to 2 L nasal cannula * D-dimer 1.16,C-reactive protein 13.1 * Patient has several worrisome risk factors for severe disease including age, male, obesity, diabetes, and hypertension. Insulin requiring type 2 diabetes * Unknown hemoglobin A1c * Presenting blood sugar 112 * Home diabetic meds include Farxiga, Tresiba, Januvia, and metformin * Diabetes increases his risk of severe COVID-19 infection Hypertension * Home medications include valsartan/hydrochlorothiazide 80/12.5 mg daily * Blood pressure on presentation was 143/72 Hyperlipidemia * Simvastatin 40 mg daily Plan * Admit to medical floor on telemetry and continuous pulse ox * Start remdesivir 200 mg x 1 then 100 mg daily x4 * Dexamethasone 6 mg p.o. daily x10 days * Actemra 800 mg now and repeat tomorrow * Rocephin 2 g every 24 hours x5 days * Azithromycin 500 mg every 24 hours x3 days * Follow CBC, CMP, mag, C-reactive protein, d-dimer * Get hemoglobin A1c and lipid panel * Lantus 10 units nightly and sliding scale insulin * Losartan 50 mg daily and hydrochlorothiazide 12.5 mg daily to substitute for valsartan/hydrochlorothiazide * Switch to Crestor 20 mg daily secondary to simvastatin's potential interaction with other medications. * VTE prophylaxis with Lovenox 40 mg daily * CODE STATUS: Full code * Disposition: Patient be admitted for oxygen therapy, remdesivir, and possibly convalescent plasma if symptoms worsen. - Mortality Measure Prognosis:: Poor
[2020-02-22] MEDS: Sodium Chloride 0.9% 1,000 ML IV SCH (02:48)
[2020-02-22] MEDS: Insulin Lispro 100 Units/ML 3 ML Vial SUBCUT SCH ×4 (07:51→21:31)
[2020-02-22] MEDS: Rosuvastatin 10 MG Tab PO SCH (07:59)
[2020-02-22] MEDS: Famotidine 20 MG Tab PO SCH (07:59)
[2020-02-22] MEDS: Losartan 25 MG Tab PO SCH (07:59)
[2020-02-22] MEDS: Hydrochlorothiazide 12.5 MG Cap PO SCH (08:00)
--- NOTE | 2020-02-22 15:50 | PCM.PN ---
- General Info Date of Service: 02/22/20 Admission Dx/Problem (Free Text): Admission Diagnosis/Problem Admission Diagnosis/Problem Pneumonia Subjective Update: Patient states that he is feeling better than admission. He states he has broke his fever and was afebrile overnight. Appetite is good. Functional Status: Reports: Pain Controlled - Review of Systems General: Reports: No Symptoms HEENT: Reports: No Symptoms Pulmonary: Reports: Cough Cardiovascular: Reports: No Symptoms Gastrointestinal: Reports: No Symptoms Musculoskeletal: Reports: No Symptoms Skin: Reports: No Symptoms Neurological: Reports: No Symptoms - Patient Data Vitals - Most Recent: Last Vital Signs Temp 97.9 F 02/22/20 12:58 Pulse 72 02/22/20 12:02 Resp 20 02/22/20 12:02 BP 135/73 02/22/20 12:02 Pulse Ox 92 L 02/22/20 12:02 Weight - Most Recent: 103.646 kg I&O - Last 24 Hours: Intake & Output 02/22/20 02/22/20 02/22/20 06:59 14:59 22:59 Intake Total 2060 360 Output Total 850 Balance 1210 360 Lab Results Last 24 Hours: Laboratory Results - last 24 hr 02/21/20 02/21/20 02/21/20 Range/Units 17:02 17:05 17:05 WBC 5.82 (4.23-9.07) K/mm3 RBC 4.47 L (4.63-6.08) M/mm3 Hgb 12.9 L (13.7-17.5) gm/dl Hct 40.0 L (40.1-51.0) % MCV 89.5 (79.0-92.2) fl MCH 28.9 (25.7-32.2) pg MCHC 32.3 (32.2-35.5) g/dl RDW Std Deviation 43.0 (35.1-43.9) fL Plt Count 236 (163-337) K/mm3 MPV 9.6 (9.4-12.3) fl Neut % (Auto) 75.9 H (34.0-67.9) % Lymph % (Auto) 11.0 L (21.8-53.1) % Logan % (Auto) 11.9 (5.3-12.2) % Eos % (Auto) 0 L (0.8-7.0) Baso % (Auto) 0.7 (0.1-1.2) % Neut # (Auto) 4.42 (1.78-5.38) K/mm3 Lymph # (Auto) 0.64 L (1.32-3.57) K/mm3 Logan # (Auto) 0.69 (0.30-0.82) K/mm3 Eos # (Auto) 0.00 L (0.04-0.54) K/mm3 Baso # (Auto) 0.04 (0.01-0.08) K/mm3 Manual Slide Review Normal smear PT (9.7-12.0) SECONDS INR APTT (22-31) SECONDS Fibrinogen (187-446) mg/dL D-Dimer, Quantitative 1.16 H (0.19-0.50) mg/L Sodium (136-145) mEq/L Potassium (3.5-5.1) mEq/L Chloride (98-107) mEq/L Carbon Dioxide (21-32) mEq/L Anion Gap (5-15) BUN (7-18) mg/dL Creatinine (0.7-1.3) mg/dL Est Cr Clr Drug Dosing mL/min Estimated GFR (MDRD) (>60) mL/min BUN/Creatinine Ratio (14-18) Glucose (80-115) mg/dL POC Glucose (80-115) mg/dL Lactic Acid (0.4-2.0) mmol/L Calcium (8.5-10.1) mg/dL Phosphorus (2.6-4.7) mg/dL Magnesium (1.8-2.4) mg/dl Ferritin (26-388) ng/ml Total Bilirubin (0.2-1.0) mg/dL AST (15-37) U/L ALT (16-63) U/L Alkaline Phosphatase (46-116) U/L Troponin I (0.00-0.056) ng/mL C-Reactive Protein (<1.0) mg/dL NT-Pro-B Natriuret Pep (0-125) pg/mL Total Protein (6.4-8.2) g/dl Albumin (3.4-5.0) g/dl Globulin gm/dL Albumin/Globulin Ratio (1-2) SARS Virus RNA (PCR) Positive H (NEGATIVE) 02/21/20 02/21/20 02/21/20 Range/Units 17:05 17:05 22:04 WBC (4.23-9.07) K/mm3 RBC (4.63-6.08) M/mm3 Hgb (13.7-17.5) gm/dl Hct (40.1-51.0) % MCV (79.0-92.2) fl MCH (25.7-32.2) pg MCHC (32.2-35.5) g/dl RDW Std Deviation (35.1-43.9) fL Plt Count (163-337) K/mm3 MPV (9.4-12.3) fl Neut % (Auto) (34.0-67.9) % Lymph % (Auto) (21.8-53.1) % Logan % (Auto) (5.3-12.2) % Eos % (Auto) (0.8-7.0) Baso % (Auto) (0.1-1.2) % Neut # (Auto) (1.78-5.38) K/mm3 Lymph # (Auto) (1.32-3.57) K/mm3 Logan # (Auto) (0.30-0.82) K/mm3 Eos # (Auto) (0.04-0.54) K/mm3 Baso # (Auto) (0.01-0.08) K/mm3 Manual Slide Review PT (9.7-12.0) SECONDS INR APTT (22-31) SECONDS Fibrinogen (187-446) mg/dL D-Dimer, Quantitative (0.19-0.50) mg/L Sodium 136 (136-145) mEq/L Potassium 4.2 (3.5-5.1) mEq/L Chloride 97 L (98-107) mEq/L Carbon Dioxide 28 (21-32) mEq/L Anion Gap 15.2 H (5-15) BUN 16 (7-18) mg/dL Creatinine 1.2 (0.7-1.3) mg/dL Est Cr Clr Drug Dosing 59.14 mL/min Estimated GFR (MDRD) 60 (>60) mL/min BUN/Creatinine Ratio 13.3 L (14-18) Glucose 112 (80-115) mg/dL POC Glucose 102 (80-115) mg/dL Lactic Acid 0.9 (0.4-2.0) mmol/L Calcium 8.3 L (8.5-10.1) mg/dL Phosphorus (2.6-4.7) mg/dL Magnesium (1.8-2.4) mg/dl Ferritin (26-388) ng/ml Total Bilirubin 0.7 (0.2-1.0) mg/dL AST 30 (15-37) U/L ALT 16 (16-63) U/L Alkaline Phosphatase 65 (46-116) U/L Troponin I (0.00-0.056) ng/mL C-Reactive Protein 13.1 H* (<1.0) mg/dL NT-Pro-B Natriuret Pep (0-125) pg/mL Total Protein 7.4 (6.4-8.2) g/dl Albumin 2.8 L (3.4-5.0) g/dl Globulin 4.6 gm/dL Albumin/Globulin Ratio 0.6 L (1-2) SARS Virus RNA (PCR) (NEGATIVE) 02/22/20 02/22/20 02/22/20 Range/Units 05:54 05:54 05:54 WBC 3.48 L (4.23-9.07) K/mm3 RBC 4.46 L (4.63-6.08) M/mm3 Hgb 12.8 L (13.7-17.5) gm/dl Hct 40.1 (40.1-51.0) % MCV 89.9 (79.0-92.2) fl MCH 28.7 (25.7-32.2) pg MCHC 31.9 L (32.2-35.5) g/dl RDW Std Deviation 43.4 (35.1-43.9) fL Plt Count 239 (163-337) K/mm3 MPV 9.8 (9.4-12.3) fl Neut % (Auto) 78.1 H (34.0-67.9) % Lymph % (Auto) 13.2 L (21.8-53.1) % Logan % (Auto) 7.2 (5.3-12.2) % Eos % (Auto) 0 L (0.8-7.0) Baso % (Auto) 0.6 (0.1-1.2) % Neut # (Auto) 2.72 (1.78-5.38) K/mm3 Lymph # (Auto) 0.46 L (1.32-3.57) K/mm3 Logan # (Auto) 0.25 L (0.30-0.82) K/mm3 Eos # (Auto) 0.00 L (0.04-0.54) K/mm3 Baso # (Auto) 0.02 (0.01-0.08) K/mm3 Manual Slide Review Abnormal smear PT 10.7 (9.7-12.0) SECONDS INR 1.00 APTT 29 (22-31) SECONDS Fibrinogen (187-446) mg/dL D-Dimer, Quantitative (0.19-0.50) mg/L Sodium (136-145) mEq/L Potassium (3.5-5.1) mEq/L Chloride (98-107) mEq/L Carbon Dioxide (21-32) mEq/L Anion Gap (5-15) BUN (7-18) mg/dL Creatinine (0.7-1.3) mg/dL Est Cr Clr Drug Dosing mL/min Estimated GFR (MDRD) (>60) mL/min BUN/Creatinine Ratio (14-18) Glucose (80-115) mg/dL POC Glucose (80-115) mg/dL Lactic Acid (0.4-2.0) mmol/L Calcium (8.5-10.1) mg/dL Phosphorus (2.6-4.7) mg/dL Magnesium (1.8-2.4) mg/dl Ferritin 275 (26-388) ng/ml Total Bilirubin (0.2-1.0) mg/dL AST (15-37) U/L ALT (16-63) U/L Alkaline Phosphatase (46-116) U/L Troponin I (0.00-0.056) ng/mL C-Reactive Protein (<1.0) mg/dL NT-Pro-B Natriuret Pep (0-125) pg/mL Total Protein (6.4-8.2) g/dl Albumin (3.4-5.0) g/dl Globulin gm/dL Albumin/Globulin Ratio (1-2) SARS Virus RNA (PCR) (NEGATIVE) 02/22/20 02/22/20 02/22/20 Range/Units 05:54 05:54 05:54 WBC (4.23-9.07) K/mm3 RBC (4.63-6.08) M/mm3 Hgb (13.7-17.5) gm/dl Hct (40.1-51.0) % MCV (79.0-92.2) fl MCH (25.7-32.2) pg MCHC (32.2-35.5) g/dl RDW Std Deviation (35.1-43.9) fL Plt Count (163-337) K/mm3 MPV (9.4-12.3) fl Neut % (Auto) (34.0-67.9) % Lymph % (Auto) (21.8-53.1) % Logan % (Auto) (5.3-12.2) % Eos % (Auto) (0.8-7.0) Baso % (Auto) (0.1-1.2) % Neut # (Auto) (1.78-5.38) K/mm3 Lymph # (Auto) (1.32-3.57) K/mm3 Logan # (Auto) (0.30-0.82) K/mm3 Eos # (Auto) (0.04-0.54) K/mm3 Baso # (Auto) (0.01-0.08) K/mm3 Manual Slide Review PT (9.7-12.0) SECONDS INR APTT (22-31) SECONDS Fibrinogen 654 H (187-446) mg/dL D-Dimer, Quantitative (0.19-0.50) mg/L Sodium 139 (136-145) mEq/L Potassium 3.9 (3.5-5.1) mEq/L Chloride 104 (98-107) mEq/L Carbon Dioxide 26 (21-32) mEq/L Anion Gap 12.9 (5-15) BUN 15 (7-18) mg/dL Creatinine 1.2 (0.7-1.3) mg/dL Est Cr Clr Drug Dosing 59.14 mL/min Estimated GFR (MDRD) 60 (>60) mL/min BUN/Creatinine Ratio 12.5 L (14-18) Glucose 159 H (80-115) mg/dL POC Glucose (80-115) mg/dL Lactic Acid (0.4-2.0) mmol/L Calcium 7.8 L (8.5-10.1) mg/dL Phosphorus 3.2 (2.6-4.7) mg/dL Magnesium 2.2 (1.8-2.4) mg/dl Ferritin (26-388) ng/ml Total Bilirubin 0.4 (0.2-1.0) mg/dL AST 24 (15-37) U/L ALT 15 L (16-63) U/L Alkaline Phosphatase 62 (46-116) U/L Troponin I < 0.017 (0.00-0.056) ng/mL C-Reactive Protein (<1.0) mg/dL NT-Pro-B Natriuret Pep 386 H (0-125) pg/mL Total Protein 7.3 (6.4-8.2) g/dl Albumin 2.5 L (3.4-5.0) g/dl Globulin 4.8 gm/dL Albumin/Globulin Ratio 0.5 L (1-2) SARS Virus RNA (PCR) (NEGATIVE) 02/22/20 02/22/20 Range/Units 06:26 10:56 WBC (4.23-9.07) K/mm3 RBC (4.63-6.08) M/mm3 Hgb (13.7-17.5) gm/dl Hct (40.1-51.0) % MCV (79.0-92.2) fl MCH (25.7-32.2) pg MCHC (32.2-35.5) g/dl RDW Std Deviation (35.1-43.9) fL Plt Count (163-337) K/mm3 MPV (9.4-12.3) fl Neut % (Auto) (34.0-67.9) % Lymph % (Auto) (21.8-53.1) % Logan % (Auto) (5.3-12.2) % Eos % (Auto) (0.8-7.0) Baso % (Auto) (0.1-1.2) % Neut # (Auto) (1.78-5.38) K/mm3 Lymph # (Auto) (1.32-3.57) K/mm3 Logan # (Auto) (0.30-0.82) K/mm3 Eos # (Auto) (0.04-0.54) K/mm3 Baso # (Auto) (0.01-0.08) K/mm3 Manual Slide Review PT (9.7-12.0) SECONDS INR APTT (22-31) SECONDS Fibrinogen (187-446) mg/dL D-Dimer, Quantitative (0.19-0.50) mg/L Sodium (136-145) mEq/L Potassium (3.5-5.1) mEq/L Chloride (98-107) mEq/L Carbon Dioxide (21-32) mEq/L Anion Gap (5-15) BUN (7-18) mg/dL Creatinine (0.7-1.3) mg/dL Est Cr Clr Drug Dosing mL/min Estimated GFR (MDRD) (>60) mL/min BUN/Creatinine Ratio (14-18) Glucose (80-115) mg/dL POC Glucose 150 H 137 H (80-115) mg/dL Lactic Acid (0.4-2.0) mmol/L Calcium (8.5-10.1) mg/dL Phosphorus (2.6-4.7) mg/dL Magnesium (1.8-2.4) mg/dl Ferritin (26-388) ng/ml Total Bilirubin (0.2-1.0) mg/dL AST (15-37) U/L ALT (16-63) U/L Alkaline Phosphatase (46-116) U/L Troponin I (0.00-0.056) ng/mL C-Reactive Protein (<1.0) mg/dL NT-Pro-B Natriuret Pep (0-125) pg/mL Total Protein (6.4-8.2) g/dl Albumin (3.4-5.0) g/dl Globulin gm/dL Albumin/Globulin Ratio (1-2) SARS Virus RNA (PCR) (NEGATIVE) Med Orders - Current: Current Medications Acetaminophen (Tylenol) 650 mg PO Q4H PRN PRN Reason: Pain (Mild 1-3)/fever Aspirin (Ecotrin) 325 mg PO BEDTIME [facility] Dexamethasone (Dexamethasone) 6 mg PO Q24H [facility] Stop: 03/02/20 20:31 Last Admin: 02/21/20 22:31 Dose: 6 mg Documented by: Enoxaparin Sodium (Lovenox) 40 mg SUBCUT DAILY@2030 [facility] Last Admin: 02/21/20 22:31 Dose: 40 mg Documented by: Famotidine (Pepcid) 20 mg PO DAILY [facility] Last Admin: 02/22/20 07:59 Dose: 20 mg Documented by: Hydrochlorothiazide (Hydrochlorothiazide) 12.5 mg PO DAILY [facility] Last Admin: 02/22/20 08:00 Dose: 12.5 mg Documented by: Ceftriaxone Sodium 2 gm/ (Sodium Chloride) 100 mls @ 200 mls/hr IV Q24H [facility] Stop: 02/26/20 20:31 Last Admin: 02/21/20 21:15 Dose: 200 mls/hr Documented by: Azithromycin 500 mg/ Sodium (Chloride) 250 mls @ 250 mls/hr IV Q24H [facility] Stop: 02/24/20 21:01 Last Admin: 02/21/20 22:27 Dose: 250 mls/hr Documented by: REMDESIVIR (EUA) 100 mg/ (Sodium Chloride) 100 mls @ 100 mls/hr IV Q24H [facility] Stop: 02/25/20 23:59 Insulin Glargine (Lantus) 10 unit SUBCUT BEDTIME [facility] Insulin Human Lispro (Humalog) 0 unit SUBCUT QIDACANDBED [facility]; Protocol Last Admin: 02/22/20 11:05 Dose: Not Given Documented by: Losartan Potassium (Cozaar) 50 mg PO DAILY [facility] Last Admin: 02/22/20 07:59 Dose: 50 mg Documented by: Ondansetron HCl (Zofran) 4 mg IV Q4H PRN PRN Reason: Nausea/Vomiting Rosuvastatin Calcium (Crestor) 20 mg PO DAILY [facility] Last Admin: 02/22/20 07:59 Dose: 20 mg Documented by: Sodium Chloride (Saline Flush) 10 ml FLUSH ASDIRECTED PRN PRN Reason: Keep Vein Open Last Admin: 02/21/20 17:19 Dose: 10 ml Documented by: Discontinued Medications Sodium Chloride (Normal Saline) 1,000 mls @ 100 mls/hr IV ASDIRECTED [facility] Last Admin: 02/22/20 02:48 Dose: 100 mls/hr Documented by: REMDESIVIR (EUA) 200 mg/ (Sodium Chloride) 250 mls @ 250 mls/hr IV ONETIME ONE Stop: 02/21/20 20:19 Last Admin: 02/21/20 22:59 Dose: 250 mls/hr Documented by: Tocilizumab 800 mg/ Sodium (Chloride) 100 mls @ 100 mls/hr IV ONETIME ONE Stop: 02/21/20 22:59 Tocilizumab 800 mg/ Sodium (Chloride) 100 mls @ 100 mls/hr IV ONETIME ONE Stop: 02/21/20 22:59 Last Admin: 02/21/20 22:51 Dose: 100 mls/hr Documented by: Tocilizumab 800 mg/ Sodium (Chloride) 100 mls @ 100 mls/hr IV ONETIME ONE Stop: 02/22/20 12:59 Last Admin: 02/22/20 12:53 Dose: 100 mls/hr Documented by: - Exam Quality Assessment: Supplemental Oxygen General: Alert, Oriented HEENT: Pupils Equal, Mucous Membr. Moist/Sour [place] Neck: Supple Lungs: Clear to Auscultation, Normal Respiratory Effort, Decreased Breath Sounds Cardiovascular: Regular Rate, Regular Rhythm GI/Abdominal Exam: Normal Bowel Sounds, Soft, Non-Tender, No Organomegaly, No Distention, No Abnormal Bruit Extremities: Normal Inspection, Normal Range of Motion, Non-Tender, No Pedal Edema, Normal Capillary Refill Skin: Warm, Dry, Intact Neurological: No New Focal Deficit Psy/Mental Status: Alert, Normal Affect, Normal Mood Sepsis Event Note - Evaluation Sepsis Screening Result: No Definite Risk - Focused Exam Vital Signs: Vital Signs Temp Pulse Resp BP Pulse Ox 02/22/20 12:58 97.9 F 02/22/20 12:02 72 20 135/73 92 L 02/22/20 10:59 67 20 136/73 95 02/22/20 07:59 140/70 02/22/20 07:54 97.5 F 77 90 L 02/22/20 07:52 140/70 - Problem List & Annotations (1) COVID-19 SNOMED Code(s): 413567336 Code(s): U07.1 - COVID-19 Status: Acute Current Visit: Yes (2) Hypoxia SNOMED Code(s): 782877490 Code(s): R09.02 - HYPOXEMIA Status: Acute Current Visit: Yes (3) Diabetes mellitus, type II SNOMED Code(s): 42780181 Code(s): E11.9 - TYPE 2 DIABETES MELLITUS WITHOUT COMPLICATIONS Status: Acute Priority: Medium Current Visit: No Qualifiers: Diabetes mellitus chcf insulin use: unspecified chcf insulin use status Diabetes mellitus complication status: with unspecified complications (4) HTN (hypertension) SNOMED Code(s): 57795285 Code(s): I10 - ESSENTIAL (PRIMARY) HYPERTENSION Status: Acute Priority: Medium Current Visit: No Qualifiers: Hypertension type: unspecified Qualified Code(s): I10 - Essential (primary) hypertension - Problem List Review Problem List Initiated/Reviewed/Updated: Yes - My Orders Last 24 Hours: My Active Orders 02/21/20 20:00 Pulse Oximetry Continuous Monitoring [OM.PC] Routine 02/21/20 20:23 Blood Glucose Check, Bedside [RC] QIDACANDBED 02/21/20 20:30 Enoxaparin [Lovenox] 40 mg SUBCUT DAILY@2029 cefTRIAXone [Rocephin] 2 gm Sodium Chloride 0.9% [Normal Saline] 100 ml IV Q24H dexAMETHasone 6 mg PO Q24H 02/21/20 21:00 Azithromycin [Zithromax] 500 mg Sodium Chloride 0.9% [Normal Saline] 250 ml IV Q24H 02/21/20 22:00 Insulin Lispro [HumaLOG] See Protocol SUBCUT QIDACANDBED 02/21/20 22:57 Oxygen Therapy [RC] PRN Up ad Lori [RC] 10,22 VTE/DVT Education [RC] PER UNIT ROUTINE Vital Signs [RC] Q4HR Acetaminophen [TylenoL] 650 mg PO Q4H PRN Ondansetron [Zofran] 4 mg IV Q4H PRN Resuscitation Status Routine 02/21/20 22:59 PROCALCITONIN [REF] Routine 02/22/20 05:00 GLYCOSYLATED HEMOGLOBIN,HGBA1C [CHEM] Routine VITAMIN D,25-HYDROXY [CHEM] Routine 02/22/20 Breakfast ADA Diabetic [[employer] Diet] [DIET] 02/22/20 09:00 Famotidine [Pepcid] 20 mg PO DAILY Losartan [Cozaar] 50 mg PO DAILY Rosuvastatin [Crestor] 20 mg PO DAILY hydroCHLOROthiazide 12.5 mg PO DAILY 02/22/20 21:00 Aspirin [Ecotrin] 325 mg PO BEDTIME Insulin Glarg,Human.Rec.Analog [LantUS] 10 unit SUBCUT BEDTIME 02/22/20 23:00 Remdesivir (Eua) [Remdesivir (EUA)] 100 mg Sodium Chloride 0.9% [Normal Saline] 100 ml IV Q24H 02/23/20 05:11 C-REACTIVE PROTEIN [CHEM] AM CBC WITH AUTO DIFF [HEME] AM COMPREHENSIVE METABOLIC PN,CMP [CHEM] AM D Dimer [D-DIMER QUANTITATIVE] [COAG] AM FERRITIN [CHEM] AM MAGNESIUM [CHEM] AM PHOSPHORUS [CHEM] AM 02/24/20 05:11 C-REACTIVE PROTEIN [CHEM] AM CBC WITH AUTO DIFF [HEME] AM COMPREHENSIVE METABOLIC PN,CMP [CHEM] AM MAGNESIUM [CHEM] AM PHOSPHORUS [CHEM] AM 02/25/20 05:11 C-REACTIVE PROTEIN [CHEM] AM CBC WITH AUTO DIFF [HEME] AM COMPREHENSIVE METABOLIC PN,CMP [CHEM] AM MAGNESIUM [CHEM] AM PHOSPHORUS [CHEM] AM 02/26/20 05:11 C-REACTIVE PROTEIN [CHEM] AM CBC WITH AUTO DIFF [HEME] AM COMPREHENSIVE METABOLIC PN,CMP [CHEM] AM 02/27/20 05:11 C-REACTIVE PROTEIN [CHEM] AM - Assessment Assessment:: Assessment 02/21/2020 COVID-19 infection Pneumonia Hypoxemia * Symptoms started 10 days ago to include fever, chills, cough, malaise, and loose stools * T-max 102 at the [place], [place] ER * Chest x-ray with patchy areas of increased density on both sides of the chest consistent with pneumonia * Oxygen saturation 88% on room air at triage requiring 1 to 2 L nasal cannula * D-dimer 1.16,C-reactive protein 13.1 * Patient has several worrisome risk factors for severe disease including age, male, obesity, diabetes, and hypertension. Insulin requiring type 2 diabetes * Unknown hemoglobin A1c * Presenting blood sugar 112 * Home diabetic meds include Farxiga, Tresiba, Januvia, and metformin * Diabetes increases his risk of severe COVID-19 infection Hypertension * Home medications include valsartan/hydrochlorothiazide 80/12.5 mg daily * Blood pressure on presentation was 143/72 Hyperlipidemia * Simvastatin 40 mg daily Plan * Admit to medical floor on telemetry and continuous pulse ox * Start remdesivir 200 mg x 1 then 100 mg daily x4 * Dexamethasone 6 mg p.o. daily x10 days * Actemra 800 mg now and repeat tomorrow * Rocephin 2 g every 24 hours x5 days * Azithromycin 500 mg every 24 hours x3 days * Follow CBC, CMP, mag, C-reactive protein, d-dimer * Get hemoglobin A1c and lipid panel * Lantus 10 units nightly and sliding scale insulin * Losartan 50 mg daily and hydrochlorothiazide 12.5 mg daily to substitute for valsartan/hydrochlorothiazide * Switch to Crestor 20 mg daily secondary to simvastatin's potential interaction with other medications. * VTE prophylaxis with Lovenox 40 mg daily * CODE STATUS: Full code * Disposition: Patient be admitted for oxygen therapy, remdesivir, and possibly convalescent plasma if symptoms worsen. 02/22/2020 COVID-19 infection Pneumonia Hypoxemia * Patient received first doses of remdesivir, dexamethasone, Actemra, Rocephin, and azithromycin yesterday. * Patient states he seems to be feeling slightly better, but he is up to 2 L nasal cannula. * Troponin less than 0.017, fibrinogen 654, Insulin requiring type 2 diabetes * Blood sugars in the low to mid 100s on sliding scale * Hemoglobin A1c is pending Hypertension * Blood pressure well controlled on losartan 50 mg and hydrochlorothiazide 12.5 mg daily Hyperlipidemia * Switched to Crestor 20 mg daily * Awaiting lipid panel - Plan Plan:: Assessment COVID-19 infection Pneumonia Hypoxemia * Symptoms started 10 days ago to include fever, chills, cough, malaise, and loose stools * T-max 102 at the [place], [place] ER * Chest x-ray with patchy areas of increased density on both sides of the chest consistent with pneumonia * Oxygen saturation 88% on room air at triage requiring 1 to 2 L nasal cannula * D-dimer 1.16,C-reactive protein 13.1 * Patient has several worrisome risk factors for severe disease including age, male, obesity, diabetes, and hypertension. Insulin requiring type 2 diabetes * Unknown hemoglobin A1c * Presenting blood sugar 112 * Home diabetic meds include Farxiga, Tresiba, Januvia, and metformin * Diabetes increases his risk of severe COVID-19 infection Hypertension * Home medications include valsartan/hydrochlorothiazide 80/12.5 mg daily * Blood pressure on presentation was 143/72 Hyperlipidemia * Simvastatin 40 mg daily Plan * Remdesivir day 2/5 days * Dexamethasone 6 mg 2/10 days * Actemra 800 mg 2 of 2 doses today * Rocephin 2/5 days * Azithromycin 2/3 days * If increasing oxygen requirement then start convalescent plasma * Follow CBC, CMP, mag, C-reactive protein, d-dimer * Lantus 10 units nightly and sliding scale insulin * Losartan 50 mg daily and hydrochlorothiazide 12.5 mg daily to substitute for valsartan/hydrochlorothiazide * Continue Crestor 20 mg daily secondary to simvastatin's potential interaction with other medications. * VTE prophylaxis with Lovenox 40 mg daily * CODE STATUS: Full code * Disposition: Patient be admitted for oxygen therapy, remdesivir, and possibly convalescent plasma if symptoms worsen.
[2020-02-22 16:21] LABS: HEMOGLOBIN A1C 7.2 % (4.50-6.20)
[2020-02-22] MEDS ORDERED: Insulin Glarg,Human.Rec.Analog 100 Unit/ML SUBCUT SCH (21:00)
[2020-02-22] MEDS: cefTRIAXone 2 GM in Sodium Chloride 0.9% 100 ML IV SCH (21:23)
[2020-02-22] MEDS: Enoxaparin 40 MG/0.4 ML Syringe SUBCUT SCH (21:23)
[2020-02-22] MEDS: Aspirin 325 MG Tab.EC PO SCH (21:24)
[2020-02-22] MEDS: Dexamethasone 4 MG Tab PO SCH (21:24)
[2020-02-22] MEDS: Azithromycin 500 MG in Sodium Chloride 0.9% 250 ML IV SCH (21:34)
[2020-02-22] MEDS: REMDESIVIR 100 MG in Sodium Chloride 0.9% 100 ML IV SCH ×2 (21:39→23:45)
[2020-02-23] MEDS: Insulin Lispro 100 Units/ML 3 ML Vial SUBCUT SCH ×4 (08:07→21:27)
[2020-02-23] MEDS: Losartan 25 MG Tab PO SCH (08:09)
[2020-02-23] MEDS: Rosuvastatin 10 MG Tab PO SCH (08:09)
[2020-02-23] MEDS: Hydrochlorothiazide 12.5 MG Cap PO SCH (08:10)
[2020-02-23] MEDS: Famotidine 20 MG Tab PO SCH (08:10)
--- NOTE | 2020-02-23 12:53 | PCM.PN ---
- General Info Date of Service: 02/23/20 Admission Dx/Problem (Free Text): Admission Diagnosis/Problem Admission Diagnosis/Problem Pneumonia Subjective Update: Patient states he is feeling much better. He has less cough and shortness of breath. He has been afebrile since admission. Appetite is good. Functional Status: Reports: Pain Controlled - Review of Systems General: Reports: No Symptoms HEENT: Reports: No Symptoms Pulmonary: Reports: Shortness of Breath, Cough Cardiovascular: Reports: No Symptoms Gastrointestinal: Reports: No Symptoms Musculoskeletal: Reports: No Symptoms Neurological: Reports: No Symptoms Psychiatric: Reports: No Symptoms - Patient Data Vitals - Most Recent: Last Vital Signs Temp 97.5 F 02/23/20 05:09 Pulse 61 02/23/20 05:09 Resp 18 02/23/20 05:09 BP 130/72 02/23/20 08:09 Pulse Ox 92 L 02/23/20 05:09 Weight - Most Recent: 103.374 kg I&O - Last 24 Hours: Intake & Output 02/22/20 02/23/20 02/23/20 22:59 06:59 14:59 Intake Total 630 850 480 Output Total 600 900 Balance 30 -50 480 Lab Results Last 24 Hours: Laboratory Results - last 24 hr 02/22/20 02/22/20 02/22/20 Range/Units 05:54 05:54 05:54 WBC (4.23-9.07) K/mm3 RBC (4.63-6.08) M/mm3 Hgb (13.7-17.5) gm/dl Hct (40.1-51.0) % MCV (79.0-92.2) fl MCH (25.7-32.2) pg MCHC (32.2-35.5) g/dl RDW Std Deviation (35.1-43.9) fL Plt Count (163-337) K/mm3 MPV (9.4-12.3) fl Neut % (Auto) (34.0-67.9) % Lymph % (Auto) (21.8-53.1) % [place] % (Auto) (5.3-12.2) % Eos % (Auto) (0.8-7.0) Baso % (Auto) (0.1-1.2) % Neut # (Auto) (1.78-5.38) K/mm3 Lymph # (Auto) (1.32-3.57) K/mm3 [place] # (Auto) (0.30-0.82) K/mm3 Eos # (Auto) (0.04-0.54) K/mm3 Baso # (Auto) (0.01-0.08) K/mm3 Manual Slide Review D-Dimer, Quantitative (0.19-0.50) mg/L Sodium (136-145) mEq/L Potassium (3.5-5.1) mEq/L Chloride (98-107) mEq/L Carbon Dioxide (21-32) mEq/L Anion Gap (5-15) BUN (7-18) mg/dL Creatinine (0.7-1.3) mg/dL Est Cr Clr Drug Dosing mL/min Estimated GFR (MDRD) (>60) mL/min BUN/Creatinine Ratio (14-18) Glucose (80-115) mg/dL POC Glucose (80-115) mg/dL Hemoglobin A1c 7.20 H (4.50-6.20) % Magnesium (1.8-2.4) mg/dl Ferritin (26-388) ng/ml Total Bilirubin (0.2-1.0) mg/dL AST (15-37) U/L ALT (16-63) U/L Alkaline Phosphatase (46-116) U/L C-Reactive Protein (<1.0) mg/dL Total Protein (6.4-8.2) g/dl Albumin (3.4-5.0) g/dl Globulin gm/dL Albumin/Globulin Ratio (1-2) Vitamin D 25-Hydroxy 26.5 L (30.0-100.0) ng/ml Procalcitonin 0.15 H (<0.10) ng/mL 02/22/20 02/22/20 02/23/20 Range/Units 16:40 21:28 05:11 WBC (4.23-9.07) K/mm3 RBC (4.63-6.08) M/mm3 Hgb (13.7-17.5) gm/dl Hct (40.1-51.0) % MCV (79.0-92.2) fl MCH (25.7-32.2) pg MCHC (32.2-35.5) g/dl RDW Std Deviation (35.1-43.9) fL Plt Count (163-337) K/mm3 MPV (9.4-12.3) fl Neut % (Auto) (34.0-67.9) % Lymph % (Auto) (21.8-53.1) % [place] % (Auto) (5.3-12.2) % Eos % (Auto) (0.8-7.0) Baso % (Auto) (0.1-1.2) % Neut # (Auto) (1.78-5.38) K/mm3 Lymph # (Auto) (1.32-3.57) K/mm3 [place] # (Auto) (0.30-0.82) K/mm3 Eos # (Auto) (0.04-0.54) K/mm3 Baso # (Auto) (0.01-0.08) K/mm3 Manual Slide Review D-Dimer, Quantitative (0.19-0.50) mg/L Sodium (136-145) mEq/L Potassium (3.5-5.1) mEq/L Chloride (98-107) mEq/L Carbon Dioxide (21-32) mEq/L Anion Gap (5-15) BUN (7-18) mg/dL Creatinine (0.7-1.3) mg/dL Est Cr Clr Drug Dosing mL/min Estimated GFR (MDRD) (>60) mL/min BUN/Creatinine Ratio (14-18) Glucose (80-115) mg/dL POC Glucose 173 H 155 H 159 H (80-115) mg/dL Hemoglobin A1c (4.50-6.20) % Magnesium (1.8-2.4) mg/dl Ferritin (26-388) ng/ml Total Bilirubin (0.2-1.0) mg/dL AST (15-37) U/L ALT (16-63) U/L Alkaline Phosphatase (46-116) U/L C-Reactive Protein (<1.0) mg/dL Total Protein (6.4-8.2) g/dl Albumin (3.4-5.0) g/dl Globulin gm/dL Albumin/Globulin Ratio (1-2) Vitamin D 25-Hydroxy (30.0-100.0) ng/ml Procalcitonin (<0.10) ng/mL 02/23/20 02/23/20 02/23/20 Range/Units 05:50 05:50 05:50 WBC 5.40 (4.23-9.07) K/mm3 RBC 4.59 L (4.63-6.08) M/mm3 Hgb 13.2 L (13.7-17.5) gm/dl Hct 41.0 (40.1-51.0) % MCV 89.3 (79.0-92.2) fl MCH 28.8 (25.7-32.2) pg MCHC 32.2 (32.2-35.5) g/dl RDW Std Deviation 42.8 (35.1-43.9) fL Plt Count 337 D (163-337) K/mm3 MPV 9.8 (9.4-12.3) fl Neut % (Auto) 80.0 H (34.0-67.9) % Lymph % (Auto) 11.3 L (21.8-53.1) % [place] % (Auto) 7.6 (5.3-12.2) % Eos % (Auto) 0 L (0.8-7.0) Baso % (Auto) 0.4 (0.1-1.2) % Neut # (Auto) 4.32 (1.78-5.38) K/mm3 Lymph # (Auto) 0.61 L (1.32-3.57) K/mm3 [place] # (Auto) 0.41 (0.30-0.82) K/mm3 Eos # (Auto) 0.00 L (0.04-0.54) K/mm3 Baso # (Auto) 0.02 (0.01-0.08) K/mm3 Manual Slide Review Normal smear D-Dimer, Quantitative 0.56 H (0.19-0.50) mg/L Sodium 140 (136-145) mEq/L Potassium 3.9 (3.5-5.1) mEq/L Chloride 103 (98-107) mEq/L Carbon Dioxide 28 (21-32) mEq/L Anion Gap 12.9 (5-15) BUN 23 H (7-18) mg/dL Creatinine 1.0 (0.7-1.3) mg/dL Est Cr Clr Drug Dosing 70.97 mL/min Estimated GFR (MDRD) > 60 (>60) mL/min BUN/Creatinine Ratio 23.0 H (14-18) Glucose 176 H (80-115) mg/dL POC Glucose (80-115) mg/dL Hemoglobin A1c (4.50-6.20) % Magnesium 2.2 (1.8-2.4) mg/dl Ferritin (26-388) ng/ml Total Bilirubin 0.3 (0.2-1.0) mg/dL AST 28 (15-37) U/L ALT 15 L (16-63) U/L Alkaline Phosphatase 60 (46-116) U/L C-Reactive Protein 8.4 H* (<1.0) mg/dL Total Protein 7.5 (6.4-8.2) g/dl Albumin 2.7 L (3.4-5.0) g/dl Globulin 4.8 gm/dL Albumin/Globulin Ratio 0.6 L (1-2) Vitamin D 25-Hydroxy (30.0-100.0) ng/ml Procalcitonin (<0.10) ng/mL 02/23/20 02/23/20 Range/Units 05:50 11:31 WBC (4.23-9.07) K/mm3 RBC (4.63-6.08) M/mm3 Hgb (13.7-17.5) gm/dl Hct (40.1-51.0) % MCV (79.0-92.2) fl MCH (25.7-32.2) pg MCHC (32.2-35.5) g/dl RDW Std Deviation (35.1-43.9) fL Plt Count (163-337) K/mm3 MPV (9.4-12.3) fl Neut % (Auto) (34.0-67.9) % Lymph % (Auto) (21.8-53.1) % [place] % (Auto) (5.3-12.2) % Eos % (Auto) (0.8-7.0) Baso % (Auto) (0.1-1.2) % Neut # (Auto) (1.78-5.38) K/mm3 Lymph # (Auto) (1.32-3.57) K/mm3 [place] # (Auto) (0.30-0.82) K/mm3 Eos # (Auto) (0.04-0.54) K/mm3 Baso # (Auto) (0.01-0.08) K/mm3 Manual Slide Review D-Dimer, Quantitative (0.19-0.50) mg/L Sodium (136-145) mEq/L Potassium (3.5-5.1) mEq/L Chloride (98-107) mEq/L Carbon Dioxide (21-32) mEq/L Anion Gap (5-15) BUN (7-18) mg/dL Creatinine (0.7-1.3) mg/dL Est Cr Clr Drug Dosing mL/min Estimated GFR (MDRD) (>60) mL/min BUN/Creatinine Ratio (14-18) Glucose (80-115) mg/dL POC Glucose 210 H (80-115) mg/dL Hemoglobin A1c (4.50-6.20) % Magnesium (1.8-2.4) mg/dl Ferritin 352 (26-388) ng/ml Total Bilirubin (0.2-1.0) mg/dL AST (15-37) U/L ALT (16-63) U/L Alkaline Phosphatase (46-116) U/L C-Reactive Protein (<1.0) mg/dL Total Protein (6.4-8.2) g/dl Albumin (3.4-5.0) g/dl Globulin gm/dL Albumin/Globulin Ratio (1-2) Vitamin D 25-Hydroxy (30.0-100.0) ng/ml Procalcitonin (<0.10) ng/mL [place] Results Last 24 Hours: Microbiology 02/21/20 17:20 Aerobic Blood Culture - Preliminary Blood - Venous - Lab Draw NO GROWTH AFTER 1 DAY Anaerobic Blood Culture - Preliminary NO GROWTH AFTER 1 DAY 02/21/20 17:05 Aerobic Blood Culture - Preliminary Blood - Venous NO GROWTH AFTER 1 DAY Anaerobic Blood Culture - Preliminary NO GROWTH AFTER 1 DAY Med Orders - Current: Current Medications Acetaminophen (Tylenol) 650 mg PO Q4H PRN PRN Reason: Pain (Mild 1-3)/fever Aspirin (Ecotrin) 325 mg PO BEDTIME [facility] Last Admin: 02/22/20 21:24 Dose: 325 mg Documented by: Dexamethasone (Dexamethasone) 6 mg PO Q24H [facility] Stop: 03/02/20 20:31 Last Admin: 02/22/20 21:24 Dose: 6 mg Documented by: Enoxaparin Sodium (Lovenox) 40 mg SUBCUT DAILY@2030 [facility] Last Admin: 02/22/20 21:23 Dose: 40 mg Documented by: Famotidine (Pepcid) 20 mg PO DAILY [facility] Last Admin: 02/23/20 08:10 Dose: 20 mg Documented by: Hydrochlorothiazide (Hydrochlorothiazide) 12.5 mg PO DAILY [facility] Last Admin: 02/23/20 08:10 Dose: 12.5 mg Documented by: Ceftriaxone Sodium 2 gm/ (Sodium Chloride) 100 mls @ 200 mls/hr IV Q24H [facility] Stop: 02/25/20 23:00 Last Admin: 02/22/20 21:23 Dose: 200 mls/hr Documented by: Azithromycin 500 mg/ Sodium (Chloride) 250 mls @ 250 mls/hr IV Q24H [facility] Stop: 02/23/20 23:00 Last Admin: 02/22/20 21:34 Dose: 250 mls/hr Documented by: REMDESIVIR (EUA) 100 mg/ (Sodium Chloride) 100 mls @ 100 mls/hr IV Q24H [facility] Stop: 02/25/20 23:59 Last Admin: 02/22/20 23:45 Dose: Not Given Documented by: Insulin Glargine (Lantus) 12 unit SUBCUT BEDTIME [facility] Insulin Human Lispro (Humalog) 0 unit SUBCUT QIDACANDBED [facility]; Protocol Last Admin: 02/23/20 08:07 Dose: 2 units Documented by: Losartan Potassium (Cozaar) 50 mg PO DAILY [facility] Last Admin: 02/23/20 08:09 Dose: 50 mg Documented by: Ondansetron HCl (Zofran) 4 mg IV Q4H PRN PRN Reason: Nausea/Vomiting Rosuvastatin Calcium (Crestor) 20 mg PO DAILY [facility] Last Admin: 02/23/20 08:09 Dose: 20 mg Documented by: Sodium Chloride (Saline Flush) 10 ml FLUSH ASDIRECTED PRN PRN Reason: Keep Vein Open Last Admin: 02/21/20 17:19 Dose: 10 ml Documented by: Discontinued Medications Sodium Chloride (Normal Saline) 1,000 mls @ 100 mls/hr IV ASDIRECTED [facility] Last Admin: 02/22/20 02:48 Dose: 100 mls/hr Documented by: REMDESIVIR (EUA) 200 mg/ (Sodium Chloride) 250 mls @ 250 mls/hr IV ONETIME ONE Stop: 02/21/20 20:19 Last Admin: 02/21/20 22:59 Dose: 250 mls/hr Documented by: Tocilizumab 800 mg/ Sodium (Chloride) 100 mls @ 100 mls/hr IV ONETIME ONE Stop: 02/21/20 22:59 Tocilizumab 800 mg/ Sodium (Chloride) 100 mls @ 100 mls/hr IV ONETIME ONE Stop: 02/21/20 22:59 Last Admin: 02/21/20 22:51 Dose: 100 mls/hr Documented by: Tocilizumab 800 mg/ Sodium (Chloride) 100 mls @ 100 mls/hr IV ONETIME ONE Stop: 02/22/20 12:59 Last Admin: 02/22/20 12:53 Dose: 100 mls/hr Documented by: Insulin Glargine (Lantus) 10 unit SUBCUT BEDTIME [facility] Last Admin: 02/22/20 21:30 Dose: 10 units Documented by: - Exam Quality Assessment: Supplemental Oxygen General: Alert, Oriented HEENT: Pupils Equal, Mucous Membr. Moist/[place] Neck: Supple Lungs: Clear to Auscultation, Normal Respiratory Effort Cardiovascular: Regular Rate, Regular Rhythm GI/Abdominal Exam: Normal Bowel Sounds, Soft, Non-Tender, No Distention Back Exam: Normal Inspection, Full Range of Motion Extremities: Normal Inspection, Normal Range of Motion, Non-Tender, Normal Capillary Refill Skin: Warm, Dry, Intact Neurological: No New Focal Deficit Psy/Mental Status: Alert, Normal Affect, Normal Mood Sepsis Event Note - Evaluation Sepsis Screening Result: No Definite Risk - Focused Exam Vital Signs: Vital Signs Temp Pulse Resp BP Pulse Ox 02/23/20 08:09 130/72 02/23/20 05:09 97.5 F 61 18 130/72 92 L - Problem List & Annotations (1) COVID-19 SNOMED Code(s): 019886851 Code(s): U07.1 - COVID-19 Status: Acute Current Visit: Yes (2) Hypoxia SNOMED Code(s): 424858068 Code(s): R09.02 - HYPOXEMIA Status: Acute Current Visit: Yes (3) Diabetes mellitus, type II SNOMED Code(s): 90195178 Code(s): E11.9 - TYPE 2 DIABETES MELLITUS WITHOUT COMPLICATIONS Status: Acute Priority: Medium Current Visit: No Qualifiers: Diabetes mellitus fpc insulin use: unspecified [employer] insulin use status Diabetes mellitus complication status: with unspecified complications (4) HTN (hypertension) SNOMED Code(s): 04776566 Code(s): I10 - ESSENTIAL (PRIMARY) HYPERTENSION Status: Acute Priority: Medium Current Visit: No Qualifiers: Hypertension type: unspecified Qualified Code(s): I10 - Essential (primary) hypertension - Problem List Review Problem List Initiated/Reviewed/Updated: Yes - My Orders Last 24 Hours: My Active Orders 02/22/20 21:00 Aspirin [Ecotrin] 325 mg PO BEDTIME 02/22/20 23:00 Remdesivir (Eua) [Remdesivir (EUA)] 100 mg Sodium Chloride 0.9% [Normal Saline] 100 ml IV Q24H 02/23/20 05:50 C-REACTIVE PROTEIN [CHEM] AM COMPREHENSIVE METABOLIC PN,CMP [CHEM] AM MAGNESIUM [CHEM] AM PHOSPHORUS [CHEM] AM 02/23/20 21:00 Insulin Glarg,Human.Rec.Analog [LantUS] 12 unit SUBCUT BEDTIME 02/24/20 05:11 C-REACTIVE PROTEIN [CHEM] AM CBC WITH AUTO DIFF [HEME] AM COMPREHENSIVE METABOLIC PN,CMP [CHEM] AM MAGNESIUM [CHEM] AM PHOSPHORUS [CHEM] AM 02/25/20 05:11 C-REACTIVE PROTEIN [CHEM] AM CBC WITH AUTO DIFF [HEME] AM COMPREHENSIVE METABOLIC PN,CMP [CHEM] AM MAGNESIUM [CHEM] AM PHOSPHORUS [CHEM] AM 02/26/20 05:11 C-REACTIVE PROTEIN [CHEM] AM CBC WITH AUTO DIFF [HEME] AM COMPREHENSIVE METABOLIC PN,CMP [CHEM] AM 02/27/20 05:11 C-REACTIVE PROTEIN [CHEM] AM - Assessment Assessment:: Assessment 02/21/2020 COVID-19 infection Pneumonia Hypoxemia * Symptoms started 10 days ago to include fever, chills, cough, malaise, and loose stools * T-max 102 at the [place], [place] ER * Chest x-ray with patchy areas of increased density on both sides of the chest consistent with pneumonia * Oxygen saturation 88% on room air at triage requiring 1 to 2 L nasal cannula * D-dimer 1.16,C-reactive protein 13.1 * Patient has several worrisome risk factors for severe disease including age, male, obesity, diabetes, and hypertension. Insulin requiring type 2 diabetes * Unknown hemoglobin A1c * Presenting blood sugar 112 * Home diabetic meds include Farxiga, Tresiba, Januvia, and metformin * Diabetes increases his risk of severe COVID-19 infection Hypertension * Home medications include valsartan/hydrochlorothiazide 80/12.5 mg daily * Blood pressure on presentation was 143/72 Hyperlipidemia * Simvastatin 40 mg daily 02/22/2020 COVID-19 infection Pneumonia Hypoxemia * Patient received first doses of remdesivir, dexamethasone, Actemra, Rocephin, and azithromycin yesterday. * Patient states he seems to be feeling slightly better, but he is up to 2 L nasal cannula. * Troponin less than 0.017, fibrinogen 654, Insulin requiring type 2 diabetes * Blood sugars in the low to mid 100s on sliding scale * Hemoglobin A1c is pending Hypertension * Blood pressure well controlled on losartan 50 mg and hydrochlorothiazide 12.5 mg daily Hyperlipidemia * Switched to Crestor 20 mg daily * Awaiting lipid panel 02/23/2020 COVID-19 infection with hypoxemia Pneumonia * Continued improvement. * Day 3 of remdesivir, dexamethasone, Rocephin, and azithromycin * D-dimer decreased to 0.56 and CRP down to 8.4 * On 2 L nasal cannula with saturations in the low to mid 90s Insulin requiring type 2 diabetes * Blood sugars are trending up with most recent blood sugar just above 200 * Hemoglobin A1c 7.2 Vitamin D deficiency * 25 hydroxy vitamin D 26 * Low vitamin D has association with worse outcomes Hypertension * Blood pressures ranging from systolic of 130-152 Hyperlipidemia * Switch to Crestor during hospitalization * - Plan Plan:: Assessment 02/21/2020 * Admit to medical floor on telemetry and continuous pulse ox * Start remdesivir 200 mg x 1 then 100 mg daily x4 * Dexamethasone 6 mg p.o. daily x10 days * Actemra 800 mg now and repeat tomorrow * Rocephin 2 g every 24 hours x5 days * Azithromycin 500 mg every 24 hours x3 days * Follow CBC, CMP, mag, C-reactive protein, d-dimer * Get hemoglobin A1c and lipid panel * Lantus 10 units nightly and sliding scale insulin * Losartan 50 mg daily and hydrochlorothiazide 12.5 mg daily to substitute for valsartan/hydrochlorothiazide * Switch to Crestor 20 mg daily secondary to simvastatin's potential interaction with other medications. * VTE prophylaxis with Lovenox 40 mg daily * CODE STATUS: Full code * Disposition: Patient be admitted for oxygen therapy, remdesivir, and possibly convalescent plasma if symptoms worsen. 02/22/2020 * Remdesivir day 2/5 days * Dexamethasone 6 mg 2/10 days * Actemra 800 mg 2 of 2 doses today * Rocephin 2/5 days * Azithromycin 2/3 days * If increasing oxygen requirement then start convalescent plasma * Follow CBC, CMP, mag, C-reactive protein, d-dimer * Lantus 10 units nightly and sliding scale insulin * Losartan 50 mg daily and hydrochlorothiazide 12.5 mg daily to substitute for valsartan/hydrochlorothiazide * Continue Crestor 20 mg daily secondary to simvastatin's potential interaction with other medications. * VTE prophylaxis with Lovenox 40 mg daily * CODE STATUS: Full code * Disposition: Patient be admitted for oxygen therapy, remdesivir, and possibly convalescent plasma if symptoms worsen. 02/23/2020 * Remdesivir, dexamethasone on day 3 of 5 * Azithromycin on day 3 of 3 * Continue current treatment strategy * Continue weaning O2 as tolerated * Continue to follow CBC, CMP, mag, CRP, and d-dimer * Increase insulin to 12 units nightly * Continue on sliding scale insulin and may need prandial insulin
[2020-02-23] MEDS: Cholecalciferol (Vitamin D3) 5,000 UNIT Tab PO SCH (15:22)
[2020-02-23] MEDS: cefTRIAXone 2 GM in Sodium Chloride 0.9% 100 ML IV SCH (20:34)
[2020-02-23] MEDS: Enoxaparin 40 MG/0.4 ML Syringe SUBCUT SCH (20:36)
[2020-02-23] MEDS: Dexamethasone 4 MG Tab PO SCH (20:37)
[2020-02-23] MEDS: Aspirin 325 MG Tab.EC PO SCH (20:37)
[2020-02-23] MEDS: Insulin Glarg,Human.Rec.Analog 100 Unit/ML SUBCUT SCH (20:38)
[2020-02-23] MEDS ORDERED: Insulin Glarg,Human.Rec.Analog 100 Unit/ML SUBCUT SCH (21:00)
[2020-02-23] MEDS: Azithromycin 500 MG in Sodium Chloride 0.9% 250 ML IV SCH (21:19)
[2020-02-23] MEDS ORDERED: Sodium Chloride 0.9% 0 ML ONE (22:41)
[2020-02-23] MEDS: REMDESIVIR 100 MG in Sodium Chloride 0.9% 100 ML IV SCH (22:46)
[2020-02-24] MEDS: Insulin Lispro 100 Units/ML 3 ML Vial SUBCUT SCH ×4 (06:48→21:24)
[2020-02-24] MEDS: Losartan 25 MG Tab PO SCH (08:39)
[2020-02-24] MEDS: Famotidine 20 MG Tab PO SCH (08:40)
[2020-02-24] MEDS: Rosuvastatin 10 MG Tab PO SCH (08:40)
[2020-02-24] MEDS: Hydrochlorothiazide 12.5 MG Cap PO SCH (08:40)
[2020-02-24] MEDS: Cholecalciferol (Vitamin D3) 5,000 UNIT Tab PO SCH (08:40)
--- NOTE | 2020-02-24 12:57 | PCM.PN ---
- General Info Date of Service: 02/24/20 Admission Dx/Problem (Free Text): Admission Diagnosis/Problem Admission Diagnosis/Problem Pneumonia Subjective Update: Patient continues a slow improvement. Appetite is good. He is moving his bowels regularly. Oxygen requirements continued to drop and he is only on 1 L FiO2. Functional Status: Reports: Pain Controlled - Review of Systems General: Reports: No Symptoms HEENT: Reports: No Symptoms Pulmonary: Reports: No Symptoms Cardiovascular: Reports: No Symptoms Gastrointestinal: Reports: No Symptoms Musculoskeletal: Reports: No Symptoms Skin: Reports: No Symptoms Neurological: Reports: No Symptoms - Patient Data Vitals - Most Recent: Last Vital Signs Temp 97.5 F 02/24/20 12:05 Pulse 63 02/24/20 12:05 Resp 16 02/24/20 12:05 BP 163/79 H 02/24/20 12:05 Pulse Ox 94 L 02/24/20 12:05 Weight - Most Recent: 100.788 kg I&O - Last 24 Hours: Intake & Output 02/23/20 02/24/20 02/24/20 22:59 06:59 14:59 Intake Total 1000 800 420 Output Total 600 900 Balance 400 -100 420 Lab Results Last 24 Hours: Laboratory Results - last 24 hr 02/23/20 02/23/20 02/23/20 Range/Units 05:50 17:40 19:16 WBC (4.23-9.07) K/mm3 RBC (4.63-6.08) M/mm3 Hgb (13.7-17.5) gm/dl Hct (40.1-51.0) % MCV (79.0-92.2) fl MCH (25.7-32.2) pg MCHC (32.2-35.5) g/dl RDW Std Deviation (35.1-43.9) fL Plt Count (163-337) K/mm3 MPV (9.4-12.3) fl Neut % (Auto) (34.0-67.9) % Lymph % (Auto) (21.8-53.1) % Meagher % (Auto) (5.3-12.2) % Eos % (Auto) (0.8-7.0) Baso % (Auto) (0.1-1.2) % Neut # (Auto) (1.78-5.38) K/mm3 Lymph # (Auto) (1.32-3.57) K/mm3 Meagher # (Auto) (0.30-0.82) K/mm3 Eos # (Auto) (0.04-0.54) K/mm3 Baso # (Auto) (0.01-0.08) K/mm3 Manual Slide Review Sodium (136-145) mEq/L Potassium (3.5-5.1) mEq/L Chloride (98-107) mEq/L Carbon Dioxide (21-32) mEq/L Anion Gap (5-15) BUN (7-18) mg/dL Creatinine (0.7-1.3) mg/dL Est Cr Clr Drug Dosing mL/min Estimated GFR (MDRD) (>60) mL/min BUN/Creatinine Ratio (14-18) Glucose (80-115) mg/dL POC Glucose 49 L 154 H (80-115) mg/dL Calcium 8.7 (8.5-10.1) mg/dL Phosphorus 3.7 (2.6-4.7) mg/dL Magnesium (1.8-2.4) mg/dl Total Bilirubin (0.2-1.0) mg/dL AST (15-37) U/L ALT (16-63) U/L Alkaline Phosphatase (46-116) U/L C-Reactive Protein (<1.0) mg/dL Total Protein (6.4-8.2) g/dl Albumin (3.4-5.0) g/dl Globulin gm/dL Albumin/Globulin Ratio (1-2) 02/23/20 02/24/20 02/24/20 Range/Units 22:52 05:53 05:53 WBC 8.28 (4.23-9.07) K/mm3 RBC 4.92 (4.63-6.08) M/mm3 Hgb 14.2 (13.7-17.5) gm/dl Hct 44.1 (40.1-51.0) % MCV 89.6 (79.0-92.2) fl MCH 28.9 (25.7-32.2) pg MCHC 32.2 (32.2-35.5) g/dl RDW Std Deviation 43.4 (35.1-43.9) fL Plt Count 350 H (163-337) K/mm3 MPV 9.7 (9.4-12.3) fl Neut % (Auto) 81.5 H (34.0-67.9) % Lymph % (Auto) 11.2 L (21.8-53.1) % Meagher % (Auto) 6.0 (5.3-12.2) % Eos % (Auto) 0.1 L (0.8-7.0) Baso % (Auto) 0.6 (0.1-1.2) % Neut # (Auto) 6.74 H (1.78-5.38) K/mm3 Lymph # (Auto) 0.93 L (1.32-3.57) K/mm3 Meagher # (Auto) 0.50 (0.30-0.82) K/mm3 Eos # (Auto) 0.01 L (0.04-0.54) K/mm3 Baso # (Auto) 0.05 (0.01-0.08) K/mm3 Manual Slide Review Normal smear Sodium 141 (136-145) mEq/L Potassium 3.7 (3.5-5.1) mEq/L Chloride 104 (98-107) mEq/L Carbon Dioxide 23 (21-32) mEq/L Anion Gap 17.7 H (5-15) BUN 23 H (7-18) mg/dL Creatinine 1.2 (0.7-1.3) mg/dL Est Cr Clr Drug Dosing 59.14 mL/min Estimated GFR (MDRD) 60 (>60) mL/min BUN/Creatinine Ratio 19.2 H (14-18) Glucose 172 H (80-115) mg/dL POC Glucose 123 H (80-115) mg/dL Calcium 8.8 (8.5-10.1) mg/dL Phosphorus 4.3 (2.6-4.7) mg/dL Magnesium 2.1 (1.8-2.4) mg/dl Total Bilirubin 0.4 (0.2-1.0) mg/dL AST 32 (15-37) U/L ALT 22 (16-63) U/L Alkaline Phosphatase 61 (46-116) U/L C-Reactive Protein 4.9 H* (<1.0) mg/dL Total Protein 8.1 (6.4-8.2) g/dl Albumin 3.0 L (3.4-5.0) g/dl Globulin 5.1 gm/dL Albumin/Globulin Ratio 0.6 L (1-2) 02/24/20 02/24/20 Range/Units 06:47 10:54 WBC (4.23-9.07) K/mm3 RBC (4.63-6.08) M/mm3 Hgb (13.7-17.5) gm/dl Hct (40.1-51.0) % MCV (79.0-92.2) fl MCH (25.7-32.2) pg MCHC (32.2-35.5) g/dl RDW Std Deviation (35.1-43.9) fL Plt Count (163-337) K/mm3 MPV (9.4-12.3) fl Neut % (Auto) (34.0-67.9) % Lymph % (Auto) (21.8-53.1) % Meagher % (Auto) (5.3-12.2) % Eos % (Auto) (0.8-7.0) Baso % (Auto) (0.1-1.2) % Neut # (Auto) (1.78-5.38) K/mm3 Lymph # (Auto) (1.32-3.57) K/mm3 Meagher # (Auto) (0.30-0.82) K/mm3 Eos # (Auto) (0.04-0.54) K/mm3 Baso # (Auto) (0.01-0.08) K/mm3 Manual Slide Review Sodium (136-145) mEq/L Potassium (3.5-5.1) mEq/L Chloride (98-107) mEq/L Carbon Dioxide (21-32) mEq/L Anion Gap (5-15) BUN (7-18) mg/dL Creatinine (0.7-1.3) mg/dL Est Cr Clr Drug Dosing mL/min Estimated GFR (MDRD) (>60) mL/min BUN/Creatinine Ratio (14-18) Glucose (80-115) mg/dL POC Glucose 178 H 177 H (80-115) mg/dL Calcium (8.5-10.1) mg/dL Phosphorus (2.6-4.7) mg/dL Magnesium (1.8-2.4) mg/dl Total Bilirubin (0.2-1.0) mg/dL AST (15-37) U/L ALT (16-63) U/L Alkaline Phosphatase (46-116) U/L C-Reactive Protein (<1.0) mg/dL Total Protein (6.4-8.2) g/dl Albumin (3.4-5.0) g/dl Globulin gm/dL Albumin/Globulin Ratio (1-2) [facility] Results Last 24 Hours: Microbiology 02/21/20 17:20 Aerobic Blood Culture - Preliminary Blood - Venous - Lab Draw NO GROWTH AFTER 2 DAYS Anaerobic Blood Culture - Preliminary NO GROWTH AFTER 2 DAYS 02/21/20 17:05 Aerobic Blood Culture - Preliminary Blood - Venous NO GROWTH AFTER 2 DAYS Anaerobic Blood Culture - Preliminary NO GROWTH AFTER 2 DAYS Med Orders - Current: Current Medications Acetaminophen (Tylenol) 650 mg PO Q4H PRN PRN Reason: Pain (Mild 1-3)/fever Aspirin (Ecotrin) 325 mg PO BEDTIME [facility] Last Admin: 02/23/20 20:37 Dose: 325 mg Documented by: Cholecalciferol (Vitamin D3) 5,000 unit PO DAILY [facility] Last Admin: 02/24/20 08:40 Dose: 5,000 unit Documented by: Dexamethasone (Dexamethasone) 6 mg PO Q24H [facility] Stop: 03/02/20 20:31 Last Admin: 02/23/20 20:37 Dose: 6 mg Documented by: Enoxaparin Sodium (Lovenox) 40 mg SUBCUT DAILY@2030 [facility] Last Admin: 02/23/20 20:36 Dose: 40 mg Documented by: Famotidine (Pepcid) 20 mg PO DAILY [facility] Last Admin: 02/24/20 08:40 Dose: 20 mg Documented by: Hydrochlorothiazide (Hydrochlorothiazide) 12.5 mg PO DAILY [facility] Last Admin: 02/24/20 08:40 Dose: 12.5 mg Documented by: Ceftriaxone Sodium 2 gm/ (Sodium Chloride) 100 mls @ 200 mls/hr IV Q24H [facility] Stop: 02/25/20 23:00 Last Admin: 02/23/20 20:34 Dose: 200 mls/hr Documented by: REMDESIVIR (EUA) 100 mg/ (Sodium Chloride) 100 mls @ 100 mls/hr IV Q24H [facility] Stop: 08/27/20 23:59 Last Admin: 02/23/20 22:46 Dose: 100 mls/hr Documented by: Insulin Glargine (Lantus) 10 unit SUBCUT BEDTIME [facility] Last Admin: 02/23/20 20:38 Dose: 10 units Documented by: Insulin Human Lispro (Humalog) 0 unit SUBCUT QIDACANDBED [facility]; Protocol Last Admin: 02/24/20 06:48 Dose: 1 units Documented by: Losartan Potassium (Cozaar) 50 mg PO DAILY [facility] Last Admin: 02/24/20 08:39 Dose: 50 mg Documented by: Ondansetron HCl (Zofran) 4 mg IV Q4H PRN PRN Reason: Nausea/Vomiting Rosuvastatin Calcium (Crestor) 20 mg PO DAILY [facility] Last Admin: 02/24/20 08:40 Dose: 20 mg Documented by: Sodium Chloride (Saline Flush) 10 ml FLUSH ASDIRECTED PRN PRN Reason: Keep Vein Open Last Admin: 02/21/20 17:19 Dose: 10 ml Documented by: Discontinued Medications Sodium Chloride (Normal Saline) 1,000 mls @ 100 mls/hr IV ASDIRECTED [facility] Last Admin: 02/22/20 02:48 Dose: 100 mls/hr Documented by: REMDESIVIR (EUA) 200 mg/ (Sodium Chloride) 250 mls @ 250 mls/hr IV ONETIME ONE Stop: 02/21/20 20:19 Last Admin: 02/21/20 22:59 Dose: 250 mls/hr Documented by: Azithromycin 500 mg/ Sodium (Chloride) 250 mls @ 250 mls/hr IV Q24H [facility] Stop: 02/23/20 23:00 Last Admin: 02/23/20 21:19 Dose: 250 mls/hr Documented by: Tocilizumab 800 mg/ Sodium (Chloride) 100 mls @ 100 mls/hr IV ONETIME ONE Stop: 02/21/20 22:59 Tocilizumab 800 mg/ Sodium (Chloride) 100 mls @ 100 mls/hr IV ONETIME ONE Stop: 02/21/20 22:59 Last Admin: 02/21/20 22:51 Dose: 100 mls/hr Documented by: Tocilizumab 800 mg/ Sodium (Chloride) 100 mls @ 100 mls/hr IV ONETIME ONE Stop: 02/22/20 12:59 Last Admin: 02/22/20 12:53 Dose: 100 mls/hr Documented by: Sodium Chloride (Normal Saline) Confirm Administered Dose 100 mls @ as directed .ROUTE .STK-MED ONE Stop: 02/23/20 22:42 Last Admin: 02/23/20 23:27 Dose: Not Given Documented by: Insulin Glargine (Lantus) 10 unit SUBCUT BEDTIME [facility] Last Admin: 02/22/20 21:30 Dose: 10 units Documented by: Insulin Glargine (Lantus) 12 unit SUBCUT BEDTIME [facility] Insulin Human Lispro (Humalog) 0 unit SUBCUT QIDACANDBED [facility]; Protocol Last Admin: 02/23/20 18:00 Dose: Not Given Documented by: - Exam Quality Assessment: Supplemental Oxygen General: Alert, Oriented HEENT: Pupils Equal, Mucous Membr. Moist/Secretary Lungs: Clear to Auscultation, Normal Respiratory Effort Cardiovascular: Regular Rate, Regular Rhythm GI/Abdominal Exam: Normal Bowel Sounds, Soft, Non-Tender, No Distention Extremities: Normal Inspection, Non-Tender, No Pedal Edema, Normal Capillary Refill Skin: Warm, Dry, Intact Neurological: No New Focal Deficit Psy/Mental Status: Alert, Normal Affect, Normal Mood Sepsis Event Note - Evaluation Sepsis Screening Result: No Definite Risk - Focused Exam Vital Signs: Vital Signs Temp Pulse Resp BP Pulse Ox 02/24/20 12:05 97.5 F 63 16 163/79 H 94 L 02/24/20 08:39 124/69 02/24/20 07:27 98.1 F 58 L 16 124/69 94 L 02/24/20 05:14 97.7 F 59 L 18 116/70 95 - Problem List & Annotations (1) COVID-19 SNOMED Code(s): 926979353 Code(s): U07.1 - COVID-19 Status: Acute Current Visit: Yes (2) Hypoxia SNOMED Code(s): 857870461 Code(s): R09.02 - HYPOXEMIA Status: Acute Current Visit: Yes (3) Diabetes mellitus, type II SNOMED Code(s): 03259252 Code(s): E11.9 - TYPE 2 DIABETES MELLITUS WITHOUT COMPLICATIONS Status: Acute Priority: Medium Current Visit: No Qualifiers: 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 insulin 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: unspecified retirement insulin use status Diabetes mellitus complication status: with unspecified complications (4) HTN (hypertension) SNOMED Code(s): 17030992 Code(s): I10 - ESSENTIAL (PRIMARY) HYPERTENSION Status: Acute Priority: Medium Current Visit: No Qualifiers: Hypertension type: unspecified Qualified Code(s): I10 - Essential (primary) hypertension - Problem List Review Problem List Initiated/Reviewed/Updated: Yes - My Orders Last 24 Hours: My Active Orders 02/23/20 14:15 Cholecalciferol (Vitamin D3) [Vitamin D3] 5,000 unit PO DAILY 02/23/20 21:00 Insulin Glarg,Human.Rec.Analog [LantUS] 10 unit SUBCUT BEDTIME 02/23/20 22:00 Insulin Lispro [HumaLOG] See Protocol SUBCUT QIDACANDBED 02/25/20 05:11 C-REACTIVE PROTEIN [CHEM] AM CBC WITH AUTO DIFF [HEME] AM COMPREHENSIVE METABOLIC PN,CMP [CHEM] AM 02/26/20 05:11 C-REACTIVE PROTEIN [CHEM] AM CBC WITH AUTO DIFF [HEME] AM COMPREHENSIVE METABOLIC PN,CMP [CHEM] AM 02/27/20 05:11 C-REACTIVE PROTEIN [CHEM] AM - Assessment Assessment:: Assessment 02/21/2020 COVID-19 infection Pneumonia Hypoxemia * Symptoms started 10 days ago to include fever, chills, cough, malaise, and loose stools * T-max 102 at the [place], [place] [facility] * Chest x-ray with patchy areas of increased density on both sides of the chest consistent with pneumonia * Oxygen saturation 88% on room air at triage requiring 1 to 2 L nasal cannula * D-dimer 1.16,C-reactive protein 13.1 * Patient has several worrisome risk factors for severe disease including age, male, obesity, diabetes, and hypertension. Insulin requiring type 2 diabetes * Unknown hemoglobin A1c * Presenting blood sugar 112 * Home diabetic meds include Farxiga, Tresiba, Januvia, and metformin * Diabetes increases his risk of severe COVID-19 infection Hypertension * Home medications include valsartan/hydrochlorothiazide 80/12.5 mg daily * Blood pressure on presentation was 143/72 Hyperlipidemia * Simvastatin 40 mg daily 02/22/2020 COVID-19 infection Pneumonia Hypoxemia * Patient received first doses of remdesivir, dexamethasone, Actemra, Rocephin, and azithromycin yesterday. * Patient states he seems to be feeling slightly better, but he is up to 2 L nasal cannula. * Troponin less than 0.017, fibrinogen 654, Insulin requiring type 2 diabetes * Blood sugars in the low to mid 100s on sliding scale * Hemoglobin A1c is pending Hypertension * Blood pressure well controlled on losartan 50 mg and hydrochlorothiazide 12.5 mg daily Hyperlipidemia * Switched to Crestor 20 mg daily * Awaiting lipid panel 02/23/2020 COVID-19 infection with hypoxemia Pneumonia * Continued improvement. * Day 3 of remdesivir, dexamethasone, Rocephin, and azithromycin * D-dimer decreased to 0.56 and CRP down to 8.4 * On 2 L nasal cannula with saturations in the low to mid 90s Insulin requiring type 2 diabetes * Blood sugars are trending up with most recent blood sugar just above 200 * Hemoglobin A1c 7.2 Vitamin D deficiency * 25 hydroxy vitamin D level 26 * Low vitamin D has association with worse outcomes Hypertension * Blood pressures ranging from systolic of 130-152 Hyperlipidemia * Switch to Crestor during hospitalization 02/24/2020 COVID-19 infection with hypoxemia and pneumonia * Day 4 of remdesivir * Continued improvement with decreasing oxygen requirements. Insulin requiring type 2 diabetes * Episode of blood sugar down to 49 yesterday. * Patient was mildly symptomatic. * Sliding scale insulin was decreased from moderate scale to low-dose scale Vitamin D deficiency * Started on vitamin D3 Hypertension * Generally well controlled with blood pressures below 140/80, but last to have been elevated at 163/79 and 185/84 - Plan Plan:: Assessment 02/21/2020 * Admit to medical floor on telemetry and continuous pulse ox * Start remdesivir 200 mg x 1 then 100 mg daily x4 * Dexamethasone 6 mg p.o. daily x10 days * Actemra 800 mg now and repeat tomorrow * Rocephin 2 g every 24 hours x5 days * Azithromycin 500 mg every 24 hours x3 days * Follow CBC, CMP, mag, C-reactive protein, d-dimer * Get hemoglobin A1c and lipid panel * Lantus 10 units nightly and sliding scale insulin * Losartan 50 mg daily and hydrochlorothiazide 12.5 mg daily to substitute for valsartan/hydrochlorothiazide * Switch to Crestor 20 mg daily secondary to simvastatin's potential interaction with other medications. * VTE prophylaxis with Lovenox 40 mg daily * CODE STATUS: Full code * Disposition: Patient be admitted for oxygen therapy, remdesivir, and possibly convalescent plasma if symptoms worsen. 02/22/2020 * Remdesivir day 2/5 days * Dexamethasone 6 mg 2/10 days * Actemra 800 mg 2 of 2 doses today * Rocephin 2/5 days * Azithromycin 2/3 days * If increasing oxygen requirement then start convalescent plasma * Follow CBC, CMP, mag, C-reactive protein, d-dimer * Lantus 10 units nightly and sliding scale insulin * Losartan 50 mg daily and hydrochlorothiazide 12.5 mg daily to substitute for valsartan/hydrochlorothiazide * Continue Crestor 20 mg daily secondary to simvastatin's potential interaction with other medications. * VTE prophylaxis with Lovenox 40 mg daily * CODE STATUS: Full code * Disposition: Patient be admitted for oxygen therapy, remdesivir, and possibly convalescent plasma if symptoms worsen. 02/23/2020 * Remdesivir, dexamethasone on day 3 of 5 * Azithromycin on day 3 of 3 * Continue current treatment strategy * Continue weaning O2 as tolerated * Continue to follow CBC, CMP, mag, CRP, and d-dimer * Increase insulin to 12 units nightly * Continue on sliding scale insulin and may need prandial insulin 02/24/2020 * Complete 5 days of remdesivir and ceftriaxone. * Wean off of O2 * Anticipate discharge in 2 days. * Lantus was held at 10 units nightly * Sliding scale insulin was decreased to low * Hold off on prandial insulin at this time
[2020-02-24] MEDS: Aspirin 325 MG Tab.EC PO SCH (20:20)
[2020-02-24] MEDS: Enoxaparin 40 MG/0.4 ML Syringe SUBCUT SCH (20:20)
[2020-02-24] MEDS: Dexamethasone 4 MG Tab PO SCH (20:21)
[2020-02-24] MEDS: Insulin Glarg,Human.Rec.Analog 100 Unit/ML SUBCUT SCH (20:23)
[2020-02-24] MEDS: cefTRIAXone 2 GM in Sodium Chloride 0.9% 100 ML IV SCH (20:27)
[2020-02-24] MEDS ORDERED: Sodium Chloride 0.9% 0 ML ONE (21:56)
[2020-02-24] MEDS: REMDESIVIR 100 MG in Sodium Chloride 0.9% 100 ML IV SCH (22:08)
[2020-02-25] MEDS: Insulin Lispro 100 Units/ML 3 ML Vial SUBCUT SCH ×4 (06:07→21:49)
[2020-02-25] MEDS: Hydrochlorothiazide 12.5 MG Cap PO SCH (08:37)
[2020-02-25] MEDS: Losartan 25 MG Tab PO SCH (08:37)
[2020-02-25] MEDS: Rosuvastatin 10 MG Tab PO SCH (08:37)
[2020-02-25] MEDS: Famotidine 20 MG Tab PO SCH (08:37)
[2020-02-25] MEDS: Cholecalciferol (Vitamin D3) 5,000 UNIT Tab PO SCH (08:37)
--- NOTE | 2020-02-25 16:15 | PCM.PN ---
- General Info Date of Service: 02/25/20 Admission Dx/Problem (Free Text): Admission Diagnosis/Problem Admission Diagnosis/Problem Pneumonia Subjective Update: Patient continues on just half a liter of O2 via nasal cannula. He is feeling well with no real complaints. Appetite is good. Bowels continue to move. Functional Status: Reports: Pain Controlled - Review of Systems General: Reports: No Symptoms HEENT: Reports: No Symptoms Pulmonary: Reports: No Symptoms Cardiovascular: Reports: No Symptoms Musculoskeletal: Reports: No Symptoms Neurological: Reports: No Symptoms Psychiatric: Reports: No Symptoms - Patient Data Vitals - Most Recent: Last Vital Signs Temp 97.9 F 02/25/20 15:05 Pulse 60 02/25/20 15:05 Resp 20 02/25/20 15:05 BP 179/92 H 02/25/20 15:05 Pulse Ox 92 L 02/25/20 15:05 Weight - Most Recent: 100.153 kg I&O - Last 24 Hours: Intake & Output 02/25/20 02/25/20 02/25/20 06:59 14:59 22:59 Intake Total 500 320 800 Output Total 700 Balance -200 320 800 Lab Results Last 24 Hours: Laboratory Results - last 24 hr 02/24/20 02/24/20 02/25/20 Range/Units 16:38 20:22 04:53 WBC 5.90 (4.23-9.07) K/mm3 RBC 4.98 (4.63-6.08) M/mm3 Hgb 14.2 (13.7-17.5) gm/dl Hct 43.9 (40.1-51.0) % MCV 88.2 (79.0-92.2) fl MCH 28.5 (25.7-32.2) pg MCHC 32.3 (32.2-35.5) g/dl RDW Std Deviation 42.2 (35.1-43.9) fL Plt Count 421 H (163-337) K/mm3 MPV 9.6 (9.4-12.3) fl Neut % (Auto) 82.2 H (34.0-67.9) % Lymph % (Auto) 10.2 L (21.8-53.1) % [place] % (Auto) 6.4 (5.3-12.2) % Eos % (Auto) 0 L (0.8-7.0) Baso % (Auto) 0.2 (0.1-1.2) % Neut # (Auto) 4.85 (1.78-5.38) K/mm3 Lymph # (Auto) 0.60 L (1.32-3.57) K/mm3 [place] # (Auto) 0.38 (0.30-0.82) K/mm3 Eos # (Auto) 0.00 L (0.04-0.54) K/mm3 Baso # (Auto) 0.01 (0.01-0.08) K/mm3 Manual Slide Review Normal smear Sodium (136-145) mEq/L Potassium (3.5-5.1) mEq/L Chloride (98-107) mEq/L Carbon Dioxide (21-32) mEq/L Anion Gap (5-15) BUN (7-18) mg/dL Creatinine (0.7-1.3) mg/dL Est Cr Clr Drug Dosing mL/min Estimated GFR (MDRD) (>60) mL/min BUN/Creatinine Ratio (14-18) Glucose (80-115) mg/dL POC Glucose 180 H 154 H (80-115) mg/dL Calcium (8.5-10.1) mg/dL Total Bilirubin (0.2-1.0) mg/dL AST (15-37) U/L ALT (16-63) U/L Alkaline Phosphatase (46-116) U/L Total Protein (6.4-8.2) g/dl Albumin (3.4-5.0) g/dl Globulin gm/dL Albumin/Globulin Ratio (1-2) 02/25/20 02/25/20 02/25/20 Range/Units 04:53 06:03 11:36 WBC (4.23-9.07) K/mm3 RBC (4.63-6.08) M/mm3 Hgb (13.7-17.5) gm/dl Hct (40.1-51.0) % MCV (79.0-92.2) fl MCH (25.7-32.2) pg MCHC (32.2-35.5) g/dl RDW Std Deviation (35.1-43.9) fL Plt Count (163-337) K/mm3 MPV (9.4-12.3) fl Neut % (Auto) (34.0-67.9) % Lymph % (Auto) (21.8-53.1) % [place] % (Auto) (5.3-12.2) % Eos % (Auto) (0.8-7.0) Baso % (Auto) (0.1-1.2) % Neut # (Auto) (1.78-5.38) K/mm3 Lymph # (Auto) (1.32-3.57) K/mm3 [place] # (Auto) (0.30-0.82) K/mm3 Eos # (Auto) (0.04-0.54) K/mm3 Baso # (Auto) (0.01-0.08) K/mm3 Manual Slide Review Sodium 143 (136-145) mEq/L Potassium 3.6 (3.5-5.1) mEq/L Chloride 104 (98-107) mEq/L Carbon Dioxide 27 (21-32) mEq/L Anion Gap 15.6 H (5-15) BUN 22 H (7-18) mg/dL Creatinine 1.2 (0.7-1.3) mg/dL Est Cr Clr Drug Dosing 59.14 mL/min Estimated GFR (MDRD) 60 (>60) mL/min BUN/Creatinine Ratio 18.3 H (14-18) Glucose 195 H (80-115) mg/dL POC Glucose 188 H 168 H (80-115) mg/dL Calcium 8.9 (8.5-10.1) mg/dL Total Bilirubin 0.5 (0.2-1.0) mg/dL AST 54 H (15-37) U/L ALT 46 (16-63) U/L Alkaline Phosphatase 66 (46-116) U/L Total Protein 7.9 (6.4-8.2) g/dl Albumin 3.1 L (3.4-5.0) g/dl Globulin 4.8 gm/dL Albumin/Globulin Ratio 0.7 L (1-2) [place] Results Last 24 Hours: Microbiology 02/21/20 17:20 Aerobic Blood Culture - Preliminary Blood - Venous - Lab Draw NO GROWTH AFTER 3 DAYS Anaerobic Blood Culture - Preliminary NO GROWTH AFTER 3 DAYS 02/21/20 17:05 Aerobic Blood Culture - Preliminary Blood - Venous NO GROWTH AFTER 3 DAYS Anaerobic Blood Culture - Preliminary NO GROWTH AFTER 3 DAYS Med Orders - Current: Current Medications Acetaminophen (Tylenol) 650 mg PO Q4H PRN PRN Reason: Pain (Mild 1-3)/fever Aspirin (Ecotrin) 325 mg PO BEDTIME [facility] Last Admin: 02/24/20 20:20 Dose: 325 mg Documented by: Cholecalciferol (Vitamin D3) 5,000 unit PO DAILY [facility] Last Admin: 02/25/20 08:37 Dose: 5,000 unit Documented by: Dexamethasone (Dexamethasone) 6 mg PO Q24H [facility] Stop: 03/02/20 20:31 Last Admin: 02/24/20 20:21 Dose: 6 mg Documented by: Enoxaparin Sodium (Lovenox) 40 mg SUBCUT DAILY@2030 [facility] Last Admin: 02/24/20 20:20 Dose: 40 mg Documented by: Famotidine (Pepcid) 20 mg PO DAILY [facility] Last Admin: 02/25/20 08:37 Dose: 20 mg Documented by: Hydrochlorothiazide (Hydrochlorothiazide) 12.5 mg PO DAILY [facility] Last Admin: 02/25/20 08:37 Dose: 12.5 mg Documented by: Ceftriaxone Sodium 2 gm/ (Sodium Chloride) 100 mls @ 200 mls/hr IV Q24H [facility] Stop: 02/25/20 23:00 Last Admin: 02/24/20 20:27 Dose: 200 mls/hr Documented by: REMDESIVIR (EUA) 100 mg/ (Sodium Chloride) 100 mls @ 100 mls/hr IV Q24H [facility] Stop: 02/25/20 23:59 Last Admin: 02/24/20 22:08 Dose: 100 mls/hr Documented by: Insulin Glargine (Lantus) 10 unit SUBCUT BEDTIME [facility] Last Admin: 02/24/20 20:23 Dose: 10 units Documented by: Insulin Human Lispro (Humalog) 0 unit SUBCUT QIDACANDBED [facility]; Protocol Last Admin: 02/25/20 11:56 Dose: 1 units Documented by: Losartan Potassium (Cozaar) 50 mg PO DAILY [facility] Last Admin: 02/25/20 08:37 Dose: 50 mg Documented by: Ondansetron HCl (Zofran) 4 mg IV Q4H PRN PRN Reason: Nausea/Vomiting Rosuvastatin Calcium (Crestor) 20 mg PO DAILY [facility] Last Admin: 02/25/20 08:37 Dose: 20 mg Documented by: Sodium Chloride (Saline Flush) 10 ml FLUSH ASDIRECTED PRN PRN Reason: Keep Vein Open Last Admin: 02/21/20 17:19 Dose: 10 ml Documented by: Discontinued Medications Sodium Chloride (Normal Saline) 1,000 mls @ 100 mls/hr IV ASDIRECTED [facility] Last Admin: 02/22/20 02:48 Dose: 100 mls/hr Documented by: REMDESIVIR (EUA) 200 mg/ (Sodium Chloride) 250 mls @ 250 mls/hr IV ONETIME ONE Stop: 02/21/20 20:19 Last Admin: 02/21/20 22:59 Dose: 250 mls/hr Documented by: Azithromycin 500 mg/ Sodium (Chloride) 250 mls @ 250 mls/hr IV Q24H [facility] Stop: 02/23/20 23:00 Last Admin: 02/23/20 21:19 Dose: 250 mls/hr Documented by: Tocilizumab 800 mg/ Sodium (Chloride) 100 mls @ 100 mls/hr IV ONETIME ONE Stop: 02/21/20 22:59 Tocilizumab 800 mg/ Sodium (Chloride) 100 mls @ 100 mls/hr IV ONETIME ONE Stop: 02/21/20 22:59 Last Admin: 02/21/20 22:51 Dose: 100 mls/hr Documented by: Tocilizumab 800 mg/ Sodium (Chloride) 100 mls @ 100 mls/hr IV ONETIME ONE Stop: 02/22/20 12:59 Last Admin: 02/22/20 12:53 Dose: 100 mls/hr Documented by: Sodium Chloride (Normal Saline) Confirm Administered Dose 100 mls @ as directed .ROUTE .STK-MED ONE Stop: 02/23/20 22:42 Last Admin: 02/23/20 23:27 Dose: Not Given Documented by: Sodium Chloride (Normal Saline) Confirm Administered Dose 100 mls @ as directed .ROUTE .STK-MED ONE Stop: 02/24/20 21:57 Last Admin: 02/24/20 23:34 Dose: Not Given Documented by: Insulin Glargine (Lantus) 10 unit SUBCUT BEDTIME [facility] Last Admin: 02/22/20 21:30 Dose: 10 units Documented by: Insulin Glargine (Lantus) 12 unit SUBCUT BEDTIME [facility] Insulin Human Lispro (Humalog) 0 unit SUBCUT QIDACANDBED [facility]; Protocol Last Admin: 02/23/20 18:00 Dose: Not Given Documented by: - Exam Quality Assessment: Supplemental Oxygen General: Alert, Oriented HEENT: Pupils Equal Neck: Supple Lungs: Clear to Auscultation, Normal Respiratory Effort Cardiovascular: Regular Rate, Regular Rhythm GI/Abdominal Exam: Normal Bowel Sounds, Soft, Non-Tender, No Distention Back Exam: Normal Inspection Extremities: Normal Inspection, Normal Range of Motion, Non-Tender, No Pedal Edema, Normal Capillary Refill Skin: Warm, Dry, Intact Neurological: No New Focal Deficit Psy/Mental Status: Alert, Normal Affect, Normal Mood Sepsis Event Note - Evaluation Sepsis Screening Result: No Definite Risk - Focused Exam Vital Signs: Vital Signs Temp Pulse Resp BP Pulse Ox Pulse Ox Pulse Ox 02/25/20 15:05 97.9 F 60 20 179/92 H 92 L 02/25/20 11:45 90 L 02/25/20 11:33 98.1 F 65 20 132/93 H 90 L 02/25/20 08:37 143/65 H 02/25/20 08:33 97.3 F 81 20 143/65 H 93 L 02/25/20 06:12 58 L 92 L 02/25/20 06:00 92 L - Problem List & Annotations (1) COVID-19 SNOMED Code(s): 624417646 Code(s): U07.1 - COVID-19 Status: Acute Current Visit: Yes (2) Hypoxia SNOMED Code(s): 695430560 Code(s): R09.02 - HYPOXEMIA Status: Acute Current Visit: Yes (3) Diabetes mellitus, type II SNOMED Code(s): 85390166 Code(s): E11.9 - TYPE 2 DIABETES MELLITUS WITHOUT COMPLICATIONS Status: Acute Priority: Medium Current Visit: No Qualifiers: Diabetes mellitus 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 insulin use: unspecified alf insulin use status Diabetes mellitus complication status: with unspecified complications (4) HTN (hypertension) SNOMED Code(s): 29225686 Code(s): I10 - ESSENTIAL (PRIMARY) HYPERTENSION Status: Acute Priority: Medium Current Visit: No Qualifiers: Hypertension type: unspecified Qualified Code(s): I10 - Essential (primary) hypertension - Problem List Review Problem List Initiated/Reviewed/Updated: Yes - My Orders Last 24 Hours: My Active Orders 02/25/20 15:11 Communication Order [RC] ROUTINE 02/26/20 05:11 CBC WITH AUTO DIFF [HEME] AM COMPREHENSIVE METABOLIC PN,CMP [CHEM] AM - Assessment Assessment:: Assessment 02/21/2020 COVID-19 infection Pneumonia Hypoxemia * Symptoms started 10 days ago to include fever, chills, cough, malaise, and loose stools * T-max 102 at the [facility], [place] [facility] * Chest x-ray with patchy areas of increased density on both sides of the chest consistent with pneumonia * Oxygen saturation 88% on room air at triage requiring 1 to 2 L nasal cannula * D-dimer 1.16,C-reactive protein 13.1 * Patient has several worrisome risk factors for severe disease including age, male, obesity, diabetes, and hypertension. Insulin requiring type 2 diabetes * Unknown hemoglobin A1c * Presenting blood sugar 112 * Home diabetic meds include Farxiga, Tresiba, Januvia, and metformin * Diabetes increases his risk of severe COVID-19 infection Hypertension * Home medications include valsartan/hydrochlorothiazide 80/12.5 mg daily * Blood pressure on presentation was 143/72 Hyperlipidemia * Simvastatin 40 mg daily 02/22/2020 COVID-19 infection Pneumonia Hypoxemia * Patient received first doses of remdesivir, dexamethasone, Actemra, Rocephin, and azithromycin yesterday. * Patient states he seems to be feeling slightly better, but he is up to 2 L nasal cannula. * Troponin less than 0.017, fibrinogen 654, Insulin requiring type 2 diabetes * Blood sugars in the low to mid 100s on sliding scale * Hemoglobin A1c is pending Hypertension * Blood pressure well controlled on losartan 50 mg and hydrochlorothiazide 12.5 mg daily Hyperlipidemia * Switched to Crestor 20 mg daily * Awaiting lipid panel 02/23/2020 COVID-19 infection with hypoxemia Pneumonia * Continued improvement. * Day 2 of remdesivir, dexamethasone, Rocephin, and azithromycin * D-dimer decreased to 0.56 and CRP down to 8.4 * On 2 L nasal cannula with saturations in the low to mid 90s Insulin requiring type 2 diabetes * Blood sugars are trending up with most recent blood sugar just above 200 * Hemoglobin A1c 7.2 Vitamin D deficiency * 25 hydroxy vitamin D level 26 * Low vitamin D has association with worse outcomes Hypertension * Blood pressures ranging from systolic of 130-152 Hyperlipidemia * Switch to Crestor during hospitalization 02/24/2020 COVID-19 infection with hypoxemia and pneumonia * Day 3 of remdesivir * Continued improvement with decreasing oxygen requirements. Insulin requiring type 2 diabetes * Episode of blood sugar down to 49 yesterday. * Patient was mildly symptomatic. * Sliding scale insulin was decreased from moderate scale to low-dose scale Vitamin D deficiency * Started on vitamin D3 Hypertension * Generally well controlled with blood pressures below 140/80, but last to have been elevated at 163/79 and 185/84 02/25/2020 COVID-19 infection with hypoxemia and pneumonia * Day 5 of remdesivir * Continued improvement with decreasing oxygen requirements. * Day 5 of 5 of Rocephin Insulin requiring type 2 diabetes * Blood sugars between 150 and 188 Vitamin D deficiency * Started on vitamin D3 Hypertension * Systolic blood pressure between 126 and 179. Diastolic blood pressure between 64 and 94 * On hydrochlorothiazide 12.5 mg daily, losartan 50 mg daily - Plan Plan:: Assessment 02/21/2020 * Admit to medical floor on telemetry and continuous pulse ox * Start remdesivir 200 mg x 1 then 100 mg daily x4 * Dexamethasone 6 mg p.o. daily x10 days * Actemra 800 mg now and repeat tomorrow * Rocephin 2 g every 24 hours x5 days * Azithromycin 500 mg every 24 hours x3 days * Follow CBC, CMP, mag, C-reactive protein, d-dimer * Get hemoglobin A1c and lipid panel * Lantus 10 units nightly and sliding scale insulin * Losartan 50 mg daily and hydrochlorothiazide 12.5 mg daily to substitute for valsartan/hydrochlorothiazide * Switch to Crestor 20 mg daily secondary to simvastatin's potential interaction with other medications. * VTE prophylaxis with Lovenox 40 mg daily * CODE STATUS: Full code * Disposition: Patient be admitted for oxygen therapy, remdesivir, and possibly convalescent plasma if symptoms worsen. 02/22/2020 * Remdesivir day 2/5 days * Dexamethasone 6 mg 2/10 days * Actemra 800 mg 2 of 2 doses today * Rocephin 2/5 days * Azithromycin 2/3 days * If increasing oxygen requirement then start convalescent plasma * Follow CBC, CMP, mag, C-reactive protein, d-dimer * Lantus 10 units nightly and sliding scale insulin * Losartan 50 mg daily and hydrochlorothiazide 12.5 mg daily to substitute for valsartan/hydrochlorothiazide * Continue Crestor 20 mg daily secondary to simvastatin's potential interaction with other medications. 02/23/2020 * Remdesivir, dexamethasone on day 3 of 5 * Azithromycin on day 3 of 3 * Continue current treatment strategy * Continue weaning O2 as tolerated * Continue to follow CBC, CMP, mag, CRP, and d-dimer * Increase insulin to 12 units nightly * Continue on sliding scale insulin and may need prandial insulin 02/24/2020 * Complete 5 days of remdesivir and ceftriaxone. * Wean off of O2 * Anticipate discharge in 2 days. * Lantus was held at 10 units nightly * Sliding scale insulin was decreased to low * Hold off on prandial insulin at this time 02/25/2020 * Day 5 of remdesivir. * Continue to wean off O2. * Anticipate discharge in 1 to 2 days. * VTE prophylaxis with Lovenox 40 mg daily * CODE STATUS: Full code * Disposition: Patient be admitted for oxygen therapy, remdesivir, and possibly convalescent plasma if symptoms worsen. Length of stay greater than 96 hours secondary to slow improvement in his hypoxemia secondary to severe COVID disease
[2020-02-25] MEDS: Insulin Glarg,Human.Rec.Analog 100 Unit/ML SUBCUT SCH (21:49)
[2020-02-25] MEDS: Enoxaparin 40 MG/0.4 ML Syringe SUBCUT SCH (21:52)
[2020-02-25] MEDS: Aspirin 325 MG Tab.EC PO SCH (21:53)
[2020-02-25] MEDS: Dexamethasone 4 MG Tab PO SCH (21:53)
[2020-02-25] MEDS: cefTRIAXone 2 GM in Sodium Chloride 0.9% 100 ML IV SCH (21:54)
[2020-02-25] MEDS: REMDESIVIR 100 MG in Sodium Chloride 0.9% 100 ML IV SCH (21:59)
[2020-02-26] MEDS: Rosuvastatin 10 MG Tab PO SCH (09:24)
[2020-02-26] MEDS: Insulin Lispro 100 Units/ML 3 ML Vial SUBCUT SCH ×2 (09:24→12:47)
[2020-02-26] MEDS: Losartan 25 MG Tab PO SCH (09:24)
[2020-02-26] MEDS: Cholecalciferol (Vitamin D3) 5,000 UNIT Tab PO SCH (09:24)
[2020-02-26] MEDS: Famotidine 20 MG Tab PO SCH (09:24)
[2020-02-26] MEDS: Hydrochlorothiazide 12.5 MG Cap PO SCH (09:24)
--- NOTE | 2020-02-26 14:03 | PCM.DCSUM1 ---
Discharge Summary - Hospital Course HPI Initial Comments: 69-year-old male with a history of diabetes, hypertension, hyperlipidemia, and reflux presented to the emergency department with complaints of a 10-day history of fever, chills, cough, and generalized malaise. Patient was in [place], [place] this past week for . At the he had a syncopal episode and was taken to the emergency room. He had flu and COVID testing which were both negative. He was given IV fluids. He states he did have oxygen saturations at that time of 88 to 91%. Patient states he has not had any improvement in his symptoms and is feeling worse. Patient states he had a temperature of 102 in [place], [place] ER. He denies shortness of breath, nausea, vomiting, but does have some loose stools. In our emergency department his pulse ox was 88% on room air and his temperature was 99.5. In our emergency department patient was found to be positive for coronavirus. Patient required 1 2 L nasal cannula to keep his oxygen saturations in the low to mid 90s. His white count was 5.8, hemoglobin 12.9, platelet count 236, d- dimer 1.16, lactic acid 0.9, sodium 136, potassium 4.2, anion gap 15.2, BUN 16, creatinine 1.2, C-reactive protein 13.1. Diagnosis: Stroke: No - Discharge Data Discharge Date: 02/26/20 Discharge Disposition: Home, Self-Care 01 Condition: Good - Referral to Home Health Primary Care Physician: Luiza Hopkins NP - Discharge Diagnosis/Problem(s) (1) COVID-19 SNOMED Code(s): 244986346 ICD Code: U07.1 - COVID-19 Status: Acute Current Visit: Yes (2) Elevated d-dimer SNOMED Code(s): 309703272 ICD Code: R79.89 - OTHER SPECIFIED ABNORMAL FINDINGS OF BLOOD CHEMISTRY Status: Acute Current Visit: Yes (3) Hypoxia SNOMED Code(s): 748127417 ICD Code: R09.02 - HYPOXEMIA Status: Acute Current Visit: Yes (4) Acute kidney injury SNOMED Code(s): 28725862, 66548458 ICD Code: N17.9 - ACUTE KIDNEY FAILURE, UNSPECIFIED Status: Acute Current Visit: No (5) Diabetes mellitus, type II SNOMED Code(s): 36442050 ICD Code: E11.9 - TYPE 2 DIABETES MELLITUS WITHOUT COMPLICATIONS Status: Acute Priority: Medium Current Visit: No Qualifiers: 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 use status Diabetes mellitus complication status: with unspecified complications (6) HLD (hyperlipidemia) SNOMED Code(s): 21910675 ICD Code: E78.5 - HYPERLIPIDEMIA, UNSPECIFIED Status: Acute Priority: Low Current Visit: No Qualifiers: Hyperlipidemia type: unspecified Qualified Code(s): E78.5 - Hyperlipidemia, unspecified (7) HTN (hypertension) SNOMED Code(s): 62706068 ICD Code: I10 - ESSENTIAL (PRIMARY) HYPERTENSION Status: Acute Priority: Medium Current Visit: No Qualifiers: Hypertension type: unspecified Qualified Code(s): I10 - Essential (primary) hypertension (8) Osteoarthritis SNOMED Code(s): 645490473 ICD Code: M19.90 - UNSPECIFIED OSTEOARTHRITIS, UNSPECIFIED SITE Status: Acute Priority: High Current Visit: No Qualifiers: Osteoarthritis location: knee Osteoarthritis type: primary Laterality: left Qualified Code(s): M17.12 - Unilateral primary osteoarthritis, left knee (9) S/P total knee arthroplasty SNOMED Code(s): 3506088085445, 064556497, 0933270531031 ICD Code: Z96.659 - PRESENCE OF UNSPECIFIED ARTIFICIAL KNEE JOINT Status: Acute Priority: High Current Visit: No Qualifiers: Laterality: left Qualified Code(s): Z96.652 - Presence of left artificial knee joint - Patient Summary/Data Hospital Course: 02/21/2020 COVID-19 infection Pneumonia Hypoxemia * Symptoms started 10 days ago to include fever, chills, cough, malaise, and loose stools * T-max 102 at the [place], [place] ER * Chest x-ray with patchy areas of increased density on both sides of the chest consistent with pneumonia * Oxygen saturation 88% on room air at triage requiring 1 to 2 L nasal cannula * D-dimer 1.16,C-reactive protein 13.1 * Patient has several worrisome risk factors for severe disease including age, male, obesity, diabetes, and hypertension. Insulin requiring type 2 diabetes * Unknown hemoglobin A1c * Presenting blood sugar 112 * Home diabetic meds include Farxiga, Tresiba, Januvia, and metformin * Diabetes increases his risk of severe COVID-19 infection Hypertension * Home medications include valsartan/hydrochlorothiazide 80/12.5 mg daily * Blood pressure on presentation was 143/72 Hyperlipidemia * Simvastatin 40 mg daily 02/22/2020 COVID-19 infection Pneumonia Hypoxemia * Patient received first doses of remdesivir, dexamethasone, Actemra, Rocephin, and azithromycin yesterday. * Patient states he seems to be feeling slightly better, but he is up to 2 L nasal cannula. * Troponin less than 0.017, fibrinogen 654, Insulin requiring type 2 diabetes * Blood sugars in the low to mid 100s on sliding scale * Hemoglobin A1c is pending Hypertension * Blood pressure well controlled on losartan 50 mg and hydrochlorothiazide 12.5 mg daily Hyperlipidemia * Switched to Crestor 20 mg daily * Awaiting lipid panel 02/23/2020 COVID-19 infection with hypoxemia Pneumonia * Continued improvement. * Day 2 of remdesivir, dexamethasone, Rocephin, and azithromycin * D-dimer decreased to 0.56 and CRP down to 8.4 * On 2 L nasal cannula with saturations in the low to mid 90s Insulin requiring type 2 diabetes * Blood sugars are trending up with most recent blood sugar just above 200 * Hemoglobin A1c 7.2 Vitamin D deficiency * 25 hydroxy vitamin D level 26 * Low vitamin D has association with worse outcomes Hypertension * Blood pressures ranging from systolic of 130-152 Hyperlipidemia * Switch to Crestor during hospitalization 02/24/2020 COVID-19 infection with hypoxemia and pneumonia * Day 3 of remdesivir * Continued improvement with decreasing oxygen requirements. Insulin requiring type 2 diabetes * Episode of blood sugar down to 49 yesterday. * Patient was mildly symptomatic. * Sliding scale insulin was decreased from moderate scale to low-dose scale Vitamin D deficiency * Started on vitamin D3 Hypertension * Generally well controlled with blood pressures below 140/80, but last to have been elevated at 163/79 and 185/84 02/25/2020 COVID-19 infection with hypoxemia and pneumonia * Day 5 of remdesivir * Continued improvement with decreasing oxygen requirements. * Day 5 of 5 of Rocephin Insulin requiring type 2 diabetes * Blood sugars between 150 and 188 Vitamin D deficiency * Started on vitamin D3 Hypertension * Systolic blood pressure between 126 and 179. Diastolic blood pressure between 64 and 94 * On hydrochlorothiazide 12.5 mg daily, losartan 50 mg daily 02/21/2020 * Admit to medical floor on telemetry and continuous pulse ox * Start remdesivir 200 mg x 1 then 100 mg daily x4 * Dexamethasone 6 mg p.o. daily x10 days * Actemra 800 mg now and repeat tomorrow * Rocephin 2 g every 24 hours x5 days * Azithromycin 500 mg every 24 hours x3 days * Follow CBC, CMP, mag, C-reactive protein, d-dimer * Get hemoglobin A1c and lipid panel * Lantus 10 units nightly and sliding scale insulin * Losartan 50 mg daily and hydrochlorothiazide 12.5 mg daily to substitute for valsartan/hydrochlorothiazide * Switch to Crestor 20 mg daily secondary to simvastatin's potential interaction with other medications. * VTE prophylaxis with Lovenox 40 mg daily * CODE STATUS: Full code * Disposition: Patient be admitted for oxygen therapy, remdesivir, and possibly convalescent plasma if symptoms worsen. 02/22/2020 * Remdesivir day 2/5 days * Dexamethasone 6 mg 2/10 days * Actemra 800 mg 2 of 2 doses today * Rocephin 2/5 days * Azithromycin 2/3 days * If increasing oxygen requirement then start convalescent plasma * Follow CBC, CMP, mag, C-reactive protein, d-dimer * Lantus 10 units nightly and sliding scale insulin * Losartan 50 mg daily and hydrochlorothiazide 12.5 mg daily to substitute for valsartan/hydrochlorothiazide * Continue Crestor 20 mg daily secondary to simvastatin's potential interaction with other medications. 02/23/2020 * Remdesivir, dexamethasone on day 3 of 5 * Azithromycin on day 3 of 3 * Continue current treatment strategy * Continue weaning O2 as tolerated * Continue to follow CBC, CMP, mag, CRP, and d-dimer * Increase insulin to 12 units nightly * Continue on sliding scale insulin and may need prandial insulin 02/24/2020 * Complete 5 days of remdesivir and ceftriaxone. * Wean off of O2 * Anticipate discharge in 2 days. * Lantus was held at 10 units nightly * Sliding scale insulin was decreased to low * Hold off on prandial insulin at this time 02/25/2020 * Day 5 of remdesivir. * Continue to wean off O2. 02/26/2020 * On RA * Independent in room * Completed 3 days of azithromycin, 5 days of Rocephin, 5 days of Remdesivir and 2 doses of Actemra * - Patient Instructions Diet: Usual Diet as Tolerated - Discharge Plan *PRESCRIPTION DRUG MONITORING PROGRAM REVIEWED*: Not Applicable *COPY OF PRESCRIPTION DRUG MONITORING REPORT IN PATIENT TRINI: Not Applicable Prescriptions/Med Rec: dexAMETHasone [Dexamethasone] 6 mg PO Q24H #5 dose Cholecalciferol (Vitamin D3) [Vitamin D3] 5,000 unit PO DAILY #30 tablet Home Medications: Home Meds Dapagliflozin Propanediol [Farxiga] 10 mg PO DAILY 10/10/18 [History] Insulin Degludec [Tresiba] 12 units SQ BEDTIME 10/10/18 [History] Simvastatin [Zocor] 40 mg PO BEDTIME 10/10/18 [History] SitaGLIPtin [Januvia] 100 mg PO DAILY 10/10/18 [History] Valsartan/Hydrochlorothiazide [Valsartan-Hctz 80-12.5 mg Tab] 1 tab PO DAILY 10/10/18 [History] metFORMIN [Glucophage] 1,000 mg PO BID 10/10/18 [History] Aspirin [Ecotrin EC] 325 mg PO BEDTIME 02/21/20 [History] Famotidine [Pepcid] 20 mg PO DAILY 02/21/20 [History] Cholecalciferol (Vitamin D3) [Vitamin D3] 5,000 unit PO DAILY #30 tablet 02/26/20 [Rx] dexAMETHasone [Dexamethasone] 6 mg PO Q24H #5 dose 02/26/20 [Rx] Oxygen Therapy Mode: Room Air Patient Handouts: Type 2 Diabetes Mellitus, Diagnosis, Adult, COVID-19 Frequently Asked Questions, COVID-19, Prevent the Spread of COVID-19 if You Are Sick - [facility] Forms: ED Department Discharge Referrals: Luiza Hopkins NP [Primary Care Provider] - 03/08/20 2:45 pm (please attend the scheduled follow up appointment with your provider ) - Discharge Summary/Plan Comment DC Time >30 min.: No - General Info Date of Service: 02/26/20 Subjective Update: Tolerated diet BM today Ambulating independently in room No complaints - Patient Data Vitals - Most Recent: Last Vital Signs Temp 97.7 F 02/26/20 07:56 Pulse 63 02/26/20 12:47 Resp 16 02/26/20 12:47 BP 156/86 H 02/26/20 12:47 Pulse Ox 93 L 02/26/20 12:47 Weight - Most Recent: 100.698 kg - Exam General: Reports: Alert, Oriented, Cooperative, No Acute Distress HEENT: Reports: Pupils Equal, Pupils Reactive, EOMI, Mucous Membr. Moist/[place] Neck: Reports: Supple, Trachea Midline, No JVD, No Thyromegaly Lungs: Reports: Clear to Auscultation, Normal Respiratory Effort. Denies: Decreased Breath Sounds, Crackles, Rales, Rhonchi, Rub, Stridor, Wheezing Cardiovascular: Reports: Regular Rate, Regular Rhythm. Denies: Murmurs, Gallops, Rubs GI/Abdominal Exam: Normal Bowel Sounds, Soft, Non-Tender. No: Distended, Guarding, Rigid Back Exam: Reports: Normal Inspection, Full Range of Motion. Denies: CVA Tenderness (L), CVA Tenderness (R) Extremities: Normal Inspection, Normal Range of Motion Skin: Reports: Warm, Dry, Intact Neurological: Reports: No New Focal Deficit Psy/Mental Status: Reports: Normal Affect, Normal Mood
== END 2020-02-26 14:50 | disposition home or self-care (01) | DRG 177 ==
LOC: JD.ED 15:57 → JD.ICU 18:37 → JD.MS 18:39
PROVIDERS: ADMIT Family Medicine; ATTEND Family Medicine
PROC: XW033E5 Introduction of Remdesivir Anti-infective into Peripheral Vein, Percutaneous Approach, New Technology Group 5 (ICD-10-PCS; principal; 2020-02-21)
PROC: XW033E5 Introduction of Remdesivir Anti-infective into Peripheral Vein, Percutaneous Approach, New Technology Group 5 (ICD-10-PCS; 2020-02-22)
PROC: XW033E5 Introduction of Remdesivir Anti-infective into Peripheral Vein, Percutaneous Approach, New Technology Group 5 (ICD-10-PCS; 2020-02-23)
PROC: XW033E5 Introduction of Remdesivir Anti-infective into Peripheral Vein, Percutaneous Approach, New Technology Group 5 (ICD-10-PCS; 2020-02-24)
PROC: XW033E5 Introduction of Remdesivir Anti-infective into Peripheral Vein, Percutaneous Approach, New Technology Group 5 (ICD-10-PCS; 2020-02-25)
DX: U07.1 COVID-19 (principal); R09.02 Hypoxemia; R79.1 Abnormal coagulation profile; J12.89 Other viral pneumonia; N17.9 Acute kidney failure, unspecified; E11.9 Type 2 diabetes mellitus without complications; K21.9 Gastro-esophageal reflux disease without esophagitis; E78.5 Hyperlipidemia, unspecified; I10 Essential (primary) hypertension; Z98.890 Other specified postprocedural states; E78.00 Pure hypercholesterolemia, unspecified; H54.7 Unspecified visual loss; M19.90 Unspecified osteoarthritis, unspecified site; M17.12 Unilateral primary osteoarthritis, left knee; E66.9 Obesity, unspecified; E55.9 Vitamin D deficiency, unspecified; Z96.652 Presence of left artificial knee joint; Z79.4 Long term (current) use of insulin; Z79.82 Long term (current) use of aspirin; Z79.899 Other long term (current) drug therapy; Z90.49 Acquired absence of other specified parts of digestive tract; Z87.891 Personal history of nicotine dependence; Z68.31 Body mass index [BMI] 31.0-31.9, adult
CPT/HCPCS: 36415; 71045; 80053; 83605; 85025; 85379; 86140; 87040 ×2; 94762; 96360; 99285; J7030; U0002; 82306; 82728; 82962; 83036; 83735; 83880; 84100; 84145; 84484; 85384; 85610; 85730; 99222; 99232; 99238; A9270-GY; J0456; J0696; J1650; J1815-GY; J3262; J7050; J8540

== ENCOUNTER 2021-09-21 10:54 | Day surgery (SDC) | payer MEDICARE, OTHER ==
[2021-09-21] MEDS: Polymyxin B/Trimethoprim 10 ML Bottle EYELF SCH ×4 (11:36→13:15)
[2021-09-21] MEDS: Brimonidine 0.2% Ophth Soln 5 ML Bottle EYELF SCH ×4 (11:43→13:15)
[2021-09-21] MEDS: Phenylephrine 2.5% Ophth Soln 2 ML Bot EYELF SCH ×6 (11:48→12:55)
[2021-09-21] MEDS: Tropicamide 1% Ophth Soln 15 ML Bottle EYELF SCH ×4 (11:53→12:40)
[2021-09-21] MEDS: Tetracaine HCl/PF 0.5% 4 ML Bottle EYEBOTH SCH ×4 (12:42→13:03)
[2021-09-21] MEDS: Lidocaine 1% PF 2 ML SDV INJECT SCH ×2 (12:50→13:04)
[2021-09-21] MEDS: Pilocarpine 4% Ophth Soln 15 ML Bot EYELF SCH ×2 (12:51→13:15)
[2021-09-21] MEDS: Cefuroxime 10 MG/ML SYRINGE EYELF SCH ×2 (12:51→13:14)
== END 2021-09-21 13:22 | disposition home or self-care (01) ==
LOC: JD.SDS 10:54
PROVIDERS: ATTEND Ophthalmology
DX: E11.36 Type 2 diabetes mellitus with diabetic cataract (principal); H25.812 Combined forms of age-related cataract, left eye; I10 Essential (primary) hypertension; E78.00 Pure hypercholesterolemia, unspecified; H54.7 Unspecified visual loss; M19.90 Unspecified osteoarthritis, unspecified site; K21.9 Gastro-esophageal reflux disease without esophagitis; E66.9 Obesity, unspecified; Z90.49 Acquired absence of other specified parts of digestive tract; Z98.890 Other specified postprocedural states; Z87.891 Personal history of nicotine dependence; Z79.82 Long term (current) use of aspirin; Z79.4 Long term (current) use of insulin; Z79.84 Long term (current) use of oral hypoglycemic drugs; Z79.899 Other long term (current) drug therapy; Z68.33 Body mass index [BMI] 33.0-33.9, adult
CPT/HCPCS: 66984; J0697; V2632